=== PATIENT | female | born 1935 | race Caucasian/White ===

== ENCOUNTER 2019-09-10 12:01 | Emergency (ER) | payer MEDICARE ==
[2019-09-10] MEDS ORDERED: SODIUM CHLORIDE 0.9% 1,000 ML IV STA (12:55)
[2019-09-10] MEDS ORDERED: ONDANSETRON 4 MG/2 ML VIAL IVP STA ×2 (12:55→15:00)
[2019-09-10 13:29] LABS: Basophils # (A) 0.1 k/uL (0-0.2); Basophils % (A) 1 %; Eosinophils # (A) 0.2 k/uL (0-0.7); Eosinophils % (A) 2 %; HCT 42.4 % (34.0-46.0); HGB 14.3 gm/dL (11.4-16.0); Lymphocytes # (A) 0.7 k/uL (1.0-4.8); Lymphocytes % (A) 9 %; MCH 30.4 pg (25.0-35.0); MCHC 33.6 g/dL (31.0-37.0); MCV 90.2 fL (80.0-100.0); Mean Platelet Volume 6.7; Monocytes # (A) 0.5 k/uL (0-1.0); Monocytes % (A) 6 %; Neutrophils # (A) 5.8 k/uL (1.3-7.7); Neutrophils % (A) 80 %; Platelet Count 369 k/uL (150-450); RDW 13.4 % (11.5-15.5); WBC 7.3 k/uL (3.8-10.6)
--- NOTE | 2019-09-10 13:30 | ED ---
Nausea/Vomiting/Diarrhea HPI - General Chief complaint: Nausea/Vomiting/Diarrhea Stated complaint: diarrhea, nausea Time Seen by Provider: 09/10/19 12:22 Source: patient Mode of arrival: wheelchair Limitations: no limitations - History of Present Illness Initial comments: Patient is an 84-year-old female presenting to the emergency department complaints of nausea and vomiting 4 days. Patient's daughter and is here with her now. Patient's daughter states that patient has been unable to take her regular daily medications secondary to the nausea and vomiting for at least one week. Patient is on anxiety and depression medications. Patient has recently been treated for trigeminal neuralgia as well as a possible tooth infection. The patient was placed on penicillin for the tooth infection. 3 days ago patient went to [facility] for same complaint and was given fluids and Zofran and did report improvement her symptoms however the nausea returned. It was found that then that patient did have a UTI so they stopped the penicillin and started Bactrim. Patient is now complaining of diarrhea. Patient does have [place] as at home that she takes occasionally for back pain. Patient denies any pain anywhere. Patient denies fever, chills however has been having night sweats. Patient denies any belly pain or urinary complaints. There are no other complaints at this time. Upon arrival to the ER, vital signs are stable. - Related Data Home Medications Medication Instructions Recorded Confirmed Aspirin EC [Ecotrin Low Dose] 81 mg PO DAILY 06/29/14 07/03/14 Calcium Citrate/Vitamin D3 2 tab PO DAILY 06/29/14 07/03/14 [Calcium Citrate - Vit D3 Tab] Donepezil [Aricept] 5 mg PO HS 06/29/14 07/03/14 Multivitamins, Thera [Multivitamin] 1 each PO DAILY 06/29/14 07/03/14 Omeprazole [PriLOSEC] 20 mg PO BID 06/29/14 07/03/14 Oxybutynin Chloride [Ditropan XL] 5 mg PO DAILY 06/29/14 07/03/14 Simvastatin [Zocor] 20 mg PO HS 06/29/14 07/03/14 Venlafaxine HCl ER [Effexor Xr] 75 mg PO DAILY 06/29/14 07/03/14 clonazePAM [KlonoPIN] 1 mg PO DAILY 06/29/14 07/03/14 Previous Rx's Medication Instructions Recorded Cephalexin [Keflex] 500 mg PO BID 7 Days #14 cap 09/10/19 Ondansetron Odt [Zofran Odt] 4 mg PO Q8HR PRN #10 tab 09/10/19 Allergies Allergy/AdvReac Type Severity Reaction Status Date / Time No Known Allergies Allergy Verified 09/10/19 12:20 Review of Systems ROS Statement: Those systems with pertinent positive or pertinent negative responses have been documented in the HPI. ROS Other: All systems not noted in ROS Statement are negative. Past Medical History Past Medical History: GERD/Reflux, Hyperlipidemia, Osteoarthritis (OA) Additional Past Medical History / Comment(s): HX OF IBS, SYNCOPE, OVER ACTIVE BLADDER, CHRONIC BACK PAIN, trigeminal neuralgia History of Any Multi-Drug Resistant Organisms: None Reported Past Surgical History: Back Surgery, Cholecystectomy, Hysterectomy, Pacemaker Additional Past Surgical History / Comment(s): CERVICAL DISC SURGERY, RT ELBOW CARPAL RELEASE. Past Anesthesia/Blood Transfusion Reactions: Previous Problems w/ Anesthesia Additional Past Anesthesia/Blood Transfusion Reaction / Comment(s): STATES BLOODPRESSURE DROPS Type of Cardiac Device: Permanent Pacemaker Device Placement Date:: [employer] 2005 Past Psychological History: Anxiety, Depression Smoking Status: Never smoker Past Alcohol Use History: Occasional Past Drug Use History: None Reported - Past Family History Daughter(s) Family Medical History: Cancer Additional Family Medical History / Comment(s): THYROID CANCER General Exam - General Exam Comments Initial Comments: GENERAL: Well-appearing, well-nourished and in no acute distress, although appears uncomfortable from the nausea. HEAD: Atraumatic, normocephalic. EYES: Pupils equal round and reactive to light, extraocular movements intact, sclera anicteric, conjunctiva are normal. ENT: TMs normal, nares patent, oropharynx clear without exudates. Moist mucous membranes. NECK: Normal range of motion, supple without lymphadenopathy or JVD. LUNGS: Breath sounds clear to auscultation bilaterally and equal. No wheezes rales or rhonchi. HEART: Regular rate and rhythm without murmurs, rubs or gallops. ABDOMEN: Soft, nontender, normoactive bowel sounds. No guarding, no rebound. No masses appreciated. EXTREMITIES: Normal range of motion, no pitting or edema. No clubbing or cyanosis. NEUROLOGICAL: Cranial nerves II through XII grossly intact. Normal speech, normal gait. PSYCH: Normal mood, normal affect. SKIN: Warm, Dry, normal turgor, no rashes or lesions noted. Limitations: no limitations Course Vital Signs 09/10/19 09/10/19 09/10/19 12:16 15:11 15:33 Temperature 98 F 97.9 F Pulse Rate 67 76 74 Respiratory 16 16 18 Rate Blood Pressure 125/76 131/74 148/86 O2 Sat by Pulse 97 99 95 Oximetry Medical Decision Making - Medical Decision Making Patient is an 84-year-old female presenting with nausea and vomiting 4 days. Patient is also currently being treated for a UTI over she's been unable to take her antibiotics secondary to the nausea. Patient has also been unable to take her at home medications for approximately one week that does include anxiety and depression medications. Patient's exam is unremarkable today. Lab work shows no acute processes. UA shows continue patient off her UTI. Urine will be cultured. Patient was given fluids and antinausea medication and reports improvement in her symptoms. Patient will be switched to Keflex for her UTI and was given 1 g Rocephin through her IV before discharge. Patient was also given Zofran for her nausea and urged to start eating small amounts of food and increase her fluid intake. Patient and family is agreement with this plan of care. Patient is stable for discharge at this time. Return parameters were discussed with the patient and her family and they verbalized understanding. Case discussed with Dr. Evans. - Lab Data Result diagrams: 09/10/19 13:09/10/19 13:07 Lab Results 09/10/19 09/10/19 09/10/19 Range/Units 13:07 13:07 14:40 WBC 7.3 (3.8-10.6) k/uL RBC 4.70 (3.80-5.40) m/uL Hgb 14.3 (11.4-16.0) gm/dL Hct 42.4 (34.0-46.0) % MCV 90.2 (80.0-100.0) fL MCH 30.4 (25.0-35.0) pg MCHC 33.6 (31.0-37.0) g/dL RDW 13.4 (11.5-15.5) % Plt Count 369 (150-450) k/uL Neutrophils % 80 % Lymphocytes % 9 % Monocytes % 6 % Eosinophils % 2 % Basophils % 1 % Neutrophils # 5.8 (1.3-7.7) k/uL Lymphocytes # 0.7 L (1.0-4.8) k/uL Monocytes # 0.5 (0-1.0) k/uL Eosinophils # 0.2 (0-0.7) k/uL Basophils # 0.1 (0-0.2) k/uL Sodium 140 (137-145) mmol/L Potassium 4.2 (3.5-5.1) mmol/L Chloride 104 (98-107) mmol/L Carbon Dioxide 27 (22-30) mmol/L Anion Gap 9 mmol/L BUN 10 (7-17) mg/dL Creatinine 0.88 (0.52-1.04) mg/dL Est GFR (CKD-EPI)AfAm 71 (>60 ml/min/1.73 sqM) Est GFR (CKD-EPI)NonAf 61 (>60 ml/min/1.73 sqM) Glucose 118 H (74-99) mg/dL Calcium 9.6 (8.4-10.2) mg/dL Total Bilirubin 0.4 (0.2-1.3) mg/dL AST 28 (14-36) U/L ALT 25 (9-52) U/L Alkaline Phosphatase 119 (38-126) U/L Total Protein 7.3 (6.3-8.2) g/dL Albumin 4.1 (3.5-5.0) g/dL Urine Color Yellow Urine Appearance Clear (Clear) Urine pH 7.5 (5.0-8.0) Ur Specific Watson 1.008 (1.001-1.035) Urine Protein Negative (Negative) Urine Glucose (UA) Negative (Negative) Urine Ketones 1+ H (Negative) Urine Blood Negative (Negative) Urine Nitrite Negative (Negative) Urine Bilirubin Negative (Negative) Urine Urobilinogen <2.0 (<2.0) mg/dL Ur Leukocyte Esterase Large H (Negative) Urine RBC 4 (0-5) /hpf Urine WBC 66 H (0-5) /hpf Ur Squamous Epith Cells 1 (0-4) /hpf Disposition Clinical Impression: Nausea vomiting and diarrhea, UTI (urinary tract infection) Disposition: HOME SELF-CARE Condition: Stable Instructions (If sedation given, give patient instructions): Urinary Tract Infection in Older Adults (ED) Additional Instructions: Please return to the Emergency Department if symptoms worsen or any other concerns. May take the Zofran as needed for nausea. Take antibiotic as prescribed. Follow-up with PCP in 1- 3 days. Prescriptions: Cephalexin [Keflex] 500 mg PO BID 7 Days #14 cap Ondansetron Odt [Zofran Odt] 4 mg PO Q8HR PRN #10 tab PRN Reason: Nausea Is patient prescribed a controlled substance at d/c from ED?: No Referrals: Daniel Nicole MD [Primary Care Provider] - 1-2 days
[2019-09-10 13:48] LABS: Albumin 4.1 g/dL (3.5-5.0); Calcium 9.6 mg/dL (8.4-10.2); Potassium 4.2 mmol/L (3.5-5.1); Total Bilirubin 0.4 mg/dL (0.2-1.3); Total Protein 7.3 g/dL (6.3-8.2)
[2019-09-10 15:03] LABS: Appearance,Urine Clear (Clear); Bilirubin,Urine Negative (Negative); Blood,Urine Negative (Negative); Color,Urine Yellow; Glucose,Urine (UA) Negative (Negative); Ketones,Urine 1+ (Negative); Leukocyte Esterase,Urine Large (Negative); Nitrite,Urine Negative (Negative); PH, Urine 7.5 (5.0-8.0); Protein,Urine Negative (Negative); RBC,Urine 4 /hpf (0-5); Specific Gravity,Urine 1.008 (1.001-1.035); Squamous Epithelial Cell,Urine 1 /hpf (0-4); Urobilinogen,Urine <2.0 mg/dL (<2.0)
[2019-09-10] MEDS ORDERED: cefTRIAXone IN SWFI 1,000 MG/10 ML SYRINGE IVP STA (15:33)
[2019-09-10 15:35] VITALS: BP 148/86; PULSE 74; RESP 18; TEMP 97.9
[2019-09-10] MEDS ORDERED: ONDANSETRON 4 MG ODT STARTER PACK 2 TAB BTL PO STA (15:36)
== END 2019-09-10 16:16 | disposition home or self-care (01) ==
LOC: EC 12:01
DX: N39.0 Urinary tract infection, site not specified (principal); R19.7 Diarrhea, unspecified; F41.9 Anxiety disorder, unspecified; F32.9 Major depressive disorder, single episode, unspecified; K21.9 Gastro-esophageal reflux disease without esophagitis; K58.0 Irritable bowel syndrome with diarrhea; E78.5 Hyperlipidemia, unspecified; M19.90 Unspecified osteoarthritis, unspecified site; G89.29 Other chronic pain; M54.9 Dorsalgia, unspecified; N32.81 Overactive bladder; G50.0 Trigeminal neuralgia; Z79.899 Other long term (current) drug therapy; Z79.82 Long term (current) use of aspirin; Z98.890 Other specified postprocedural states
CPT/HCPCS: 36415; 80053; 85025; 81001; 87086; 99284; 96374; 96375 ×2; 96361 ×2; J2405; J0696; S0119

== ENCOUNTER 2019-09-16 18:46 | Observation (INO) | payer MEDICARE ==
[2019-09-16] MEDS ORDERED: SODIUM CHLORIDE 0.9% 1,000 ML IV STA (18:51)
--- NOTE | 2019-09-16 19:30 | ED ---
General Adult HPI - General Chief complaint: Syncope Stated complaint: Syncope Time Seen by Provider: 09/16/19 18:51 Source: patient, EMS Mode of arrival: EMS Limitations: no limitations - History of Present Illness Initial comments: Dictation was produced using [employer] dictation software. please excuse any grammatical, word or spelling errors. Chief Complaint: 84-year-old female past medical history of pacemaker and 61 presents with syncope. History of Present Illness: 84-year-old female she initially presented to [facility] emergency department for syncope. Patient was escorted to the bathroom at an adult foster home where she lives. She was seen passing out multiple times on the toilet. Patient was brought to [place] emergency department where she was evaluated. She had a negative computed tomography scan of the head and basic blood work. Patient had multiple episodes of syncope one emergency department. According to Dr. barron from [facility] there is concern that possibly her pacemaker wasn't functioning. Patient reports that her pacemaker was placed because she would have multiple episodes of syncope especially during bowel movements. Patient states at rest she feels well. Patient has been having infrequent bowel movements. She is passing gas. She denies any abdominal pain. She was sent to our facility because her curtain stitcher's is in our area. The ROS documented in this emergency department record has been reviewed and confirmed by me. Those systems with pertinent positive or negative responses have been documented in the HPI. All other systems are other negative and/or noncontributory. PHYSICAL EXAM: General Impression: Alert and oriented x3, not in acute distress HEENT: Normocephalic atraumatic, extra-ocular movements intact, pupils equal and reactive to light bilaterally, mucous membranes moist, no carotid bruit. Cardiovascular: Heart regular rate and rhythm, S1&S2 audible, no murmurs, rubs or gallops Chest: Lungs clear to auscultation bilaterally, no rhonchi, no wheeze, no rales Abdomen: Bowel sounds present, abdomen soft, non-tender, non-distended, no organomegaly Musculoskeletal: Pulses present and equal in all extremities, no peripheral edema Motor: no focal deficits noted Neurological: CN II-XII grossly intact, no focal motor or sensory deficits noted Skin: Intact with no visualized rashes Psych: Normal affect and mood ED course: 84-year-old female sent over from [facility] for syncope and possible pacer malfunction.. Vital signs upon arrival are within acceptable limits. Patient is well-appearing at this time. At rest patient has no specific complaints. Chart review was performed. Patient had x-ray showing moderate stool burden. No evidence of bowel obstruction. Computed tomography scan of the head was obtained showing no acute processes. CBC was unremarkable. Metabolic panel is unremarkable. EKG was obtained showing no acute processes. Patient advised is interrogated pending pacer report. Patient observed in emergency Department with no syncopal events. We'll have patient admitted observation. Discussed patient case just go from Dr. Vu's group willing to accept patients care. Cardiology will be placed on consultation. EKG interpretation: Ventricular rate 52, sinus bradycardia, MT interval 180, Q is 82, QTC 399. No MT prolongation, no QTC prolongation, no ST or T-wave changes noted. Overall, this EKG is unremarkable - Related Data Home Medications Medication Instructions Recorded Confirmed Aspirin EC [Ecotrin Low Dose] 81 mg PO DAILY 06/29/14 07/03/14 Calcium Citrate/Vitamin D3 2 tab PO DAILY 06/29/14 07/03/14 [Calcium Citrate - Vit D3 Tab] Donepezil [Aricept] 5 mg PO HS 06/29/14 07/03/14 Multivitamins, Thera [Multivitamin] 1 each PO DAILY 06/29/14 07/03/14 Omeprazole [PriLOSEC] 20 mg PO BID 06/29/14 07/03/14 Oxybutynin Chloride [Ditropan XL] 5 mg PO DAILY 06/29/14 07/03/14 Simvastatin [Zocor] 20 mg PO HS 06/29/14 07/03/14 Venlafaxine HCl ER [Effexor Xr] 75 mg PO DAILY 06/29/14 07/03/14 clonazePAM [KlonoPIN] 1 mg PO DAILY 06/29/14 07/03/14 Previous Rx's Medication Instructions Recorded Cephalexin [Keflex] 500 mg PO BID 7 Days #14 cap 09/10/19 Ondansetron Odt [Zofran Odt] 4 mg PO Q8HR PRN #10 tab 09/10/19 Allergies Allergy/AdvReac Type Severity Reaction Status Date / Time No Known Allergies Allergy Verified 09/16/19 18:55 Review of Systems ROS Statement: Those systems with pertinent positive or pertinent negative responses have been documented in the HPI. ROS Other: All systems not noted in ROS Statement are negative. Past Medical History Past Medical History: GERD/Reflux, Hyperlipidemia, Osteoarthritis (OA) Additional Past Medical History / Comment(s): HX OF IBS, SYNCOPE, OVER ACTIVE BLADDER, CHRONIC BACK PAIN, trigeminal neuralgia History of Any Multi-Drug Resistant Organisms: None Reported Past Surgical History: Cholecystectomy, Hysterectomy, Pacemaker Additional Past Surgical History / Comment(s): CERVICAL DISC SURGERY, RT ELBOW CARPAL RELEASE. Past Anesthesia/Blood Transfusion Reactions: Previous Problems w/ Anesthesia Additional Past Anesthesia/Blood Transfusion Reaction / Comment(s): STATES BLOODPRESSURE DROPS Type of Cardiac Device: Permanent Pacemaker Device Placement Date:: [employer] 2005 Past Psychological History: Anxiety, Depression Smoking Status: Never smoker Past Alcohol Use History: Occasional Past Drug Use History: None Reported - Past Family History Daughter(s) Family Medical History: Cancer Additional Family Medical History / Comment(s): THYROID CANCER General Exam Limitations: no limitations Course Vital Signs 09/16/19 09/16/19 18:55 19:08 Temperature 98.2 F Pulse Rate 60 Pulse Rate [ 53 L Contestant Coordinator ] Respiratory 18 Rate Blood Pressure 109/80 O2 Sat by Pulse 98 Oximetry Disposition Clinical Impression: Syncope Disposition: ADMITTED IP TO THIS HOSP Condition: Fair Referrals: Daniel Nicole MD [Primary Care Provider] - 1-2 days Decision Time: 20:21
[2019-09-16] MEDS ORDERED: ONDANSETRON 4 MG/2 ML VIAL IVP PRN (20:18)
[2019-09-16] MEDS ORDERED: NALOXONE 0.4 MG/ML 1 ML VIAL IV PRN (20:18)
[2019-09-16] MEDS ORDERED: HYDROcodone/APAP 5-325MG 1 EACH TAB PO PRN (22:35)
[2019-09-16] MEDS ORDERED: traMADol 50 MG TAB PO PRN (22:35)
[2019-09-16] MEDS: ATORVASTATIN 10 MG TAB PO SCH (23:04)
[2019-09-16] MEDS: SODIUM CHLORIDE 0.9% 1,000 ML IV SCH (23:04)
[2019-09-17] MEDS ORDERED: ACETAMINOPHEN TAB 500 MG TAB PO PRN (00:34)
[2019-09-17] MEDS ORDERED: TEMAZEPAM 15 MG CAP PO PRN (00:34)
[2019-09-17] MEDS ORDERED: ALPRAZolam 0.25 MG TAB PO PRN (00:34)
[2019-09-17] MEDS: carBAMazepine 100 MG TAB.ER.12H PO SCH ×2 (00:41→09:21)
[2019-09-17] MEDS: clonazePAM 0.5 MG TAB PO SCH ×3 (00:55→20:03)
[2019-09-17] MEDS: CEPHALEXIN 500 MG CAP PO SCH ×3 (00:55→20:03)
--- NOTE | 2019-09-17 04:13 | HP ---
HISTORY AND PHYSICAL . DATE OF SERVICE: 09/16/2019 CHIEF COMPLAINT: Multiple symptomatology including syncope, pacemaker dysfunction as well as dizziness, abdominal pain, trigeminal neuralgia. HISTORY OF PRESENT ILLNESS: This 84-year-old woman with a past medical history of multiple medical problems including GERD, hyperlipidemia, history of DJD, history of hysterectomy, history of pacemaker, history of cervical disc surgery, history of permanent pacemaker which was inserted about 4 years ago, being followed by Dr. Daniel Nicole in the outpatient was having difficulties with trigeminal neuralgia for the last several weeks. The patient apparently was evaluated by Dr. Ott for severe left-sided trigeminal neuralgia and Tegretol was initiated but apparently patient not able to tolerate the medications and the patient has some abdominal symptoms and weakness and dizziness subsequently and dose has been apparently being planned to be reduced, but the patient is unable to see the neurologist and in between, the patient diminished eating and patient became somewhat dizzy, dehydrated and the patient ended up in the ER today. When the patient was going to the bathroom, patient felt dizzy and passed out and the had to hold her. The patient taken to [facility] and subsequently was referred to [facility] and was admitted for further evaluation and treatment. In between, the patient was also evaluated by a dental surgeon up [place] and the possibility of tooth abnormalities also considered but however because of concerns of pacemaker dysfunction, the patient referred to [facility] and admitted for further evaluation and treatment. Pacemaker interrogation apparent showed strips of ventricular tachycardia. There is no history of fever, rigors. No history of any chest pain, palpitations, headache, any seizures at this time. PAST MEDICAL HISTORY: Past medical history of GERD and hypertension, DJD, history of irritable bowel syndrome, anxiety, depression, a pacemaker. MEDICATIONS: Home medications are: 1. [place] 5 mg q.6h p.r.n. 2. Timoptic 1 drop both eyes b.i.d. 3. Zocor 20 mg q.h.s. 4. Ditropan XL 5 mg p.o. daily. 5. Zofran 4 mg q.8 p.r.n. 6. Keflex 500 mg p.o. b.i.d. 7. Tegretol XR 200 mg p.o. b.i.d. 8. Effexor XR 75 mg p.o. daily. 9. Prilosec 20 mg. 10.Multivitamins one p.o. daily. 11.Vitamin D3 1 tablet p.o. b.i.d. 12.Ultram 50 mg p.o. q.4 p.r.n. 13.Klonopin 0.5 mg p.o. b.i.d. 14.Ecotrin 81 mg p.o. daily. ALLERGIES: None. FAMILY HISTORY: History of thyroid cancer in the family. SOCIAL HISTORY: No history of smoking. No history of alcohol intake. REVIEW OF SYSTEMS: ENT: No diminished vision. No diminished hearing. CARDIOVASCULAR: No angina or palpitations. Otherwise, cardiovascular as mentioned earlier. RESPIRATION as mentioned earlier. GI no nausea or vomiting. no dysuria or hematuria. NERVOUS SYSTEM: No numbness or weakness. ALLERGY: No asthma or hayfever. MUSCULOSKELETAL as mentioned earlier. HEMATOLOGY/ONCOLOGY: No history of anemia. ENDOCRINE: No history of diabetes or hypothyroidism. CONSTITUTIONAL: As mentioned earlier. DERMATOLOGY: Negative. RHEUMATOLOGY negative. PSYCHIATRY as mentioned earlier. PHYSICAL EXAMINATION: Alert and oriented times three. Pulse 67. Blood pressure 133/81, respirations 16, temperature 98.1, pulse ox 97% on room air. HEENT is conjunctivae normal. Oral mucosa moist. NECK is no jugular venous distention. No carotid bruit. No lymph node enlargement. CARDIOVASCULAR: S1, S2 muffled. RESPIRATION: Breath sounds diminished in the bases. A few scattered rhonchi and crackles. ABDOMEN: Soft, nontender. No mass palpable. LEGS: No edema and no swelling. NERVOUS SYSTEM: Higher functions as mentioned earlier. Moves all 4 limbs. No focal motor or sensory deficits. LYMPHATICS: No lymph nodes palpable in the neck, axillae or groin. SKIN: No ulcer, rash or bleeding. JOINTS: No active deforming arthropathy. LABS: At this time pending at this time. ASSESSMENT: 1. Syncope for evaluation possible cardiac arrhythmia ventricular tachycardia. 2. Weakness and dizziness possible dehydration with diminished p.o. intake. 3. Left-sided trigeminal neuralgia. 4. Possible acute gastritis. 5. History of gastroesophageal reflux disease. 6. Hyperlipidemia. 7. History of degenerative joint disease. 8. History of irritable bowel syndrome. 9. Overactive bladder. 10.History of peripheral neuropathy. 11.Left bursitis. 12.History of cholecystectomy. 13.Hysterectomy. 14.History of cervical disc surgery. 15.History of anxiety, depression. 16.FULL CODE. RECOMMENDATIONS AND DISCUSSION: In this 84-year-old woman who presented with multiple complex medical issues, we will monitor the patient closely, continue the current medications, management and symptomatic treatment. I will provide symptomatic treatment with low-dose pain medications. Otherwise, I would also recommend Cardiology consultation and monitor lytes closely. Baseline labs. Resume the home medications. I would also recommend evaluation by a neurologist available for the followup of the trigeminal neuralgia. Otherwise overall prognosis guarded because of multiple complex medical issues, as detailed above. Discussed with the patient who understands and agrees. Further recommendations to follow. A copy of this dictation being forwarded to Dr. Daniel Nicole who is the primary physician. See orders for details. MMODL / IJN: [id number] / MTDD
[2019-09-17] MEDS ORDERED: PANTOPRAZOLE 40 MG TABLET PO SCH (07:30)
[2019-09-17] MEDS ORDERED: VITAMIN D3 PO SCH (09:00)
[2019-09-17] MEDS ORDERED: CALCIUM CITRATE PO SCH (09:00)
[2019-09-17] MEDS: HEPARIN SODIUM,PORCINE 5,000 UNIT/ML 1 ML VIAL SQ SCH ×2 (09:17→20:03)
[2019-09-17] MEDS: PANTOPRAZOLE 40 MG/10 ML VIAL IVP SCH ×2 (09:17→20:03)
[2019-09-17] MEDS: ASPIRIN 81 MG PO SCH (09:17)
[2019-09-17] MEDS: MULTIVITAMINS, THERA 1 EACH TAB PO SCH (09:17)
[2019-09-17] MEDS: TIMOLOL 0.5% OPHTH DROPS 5 ML BTL BOTH EYES SCH (09:17)
[2019-09-17] MEDS: VENLAFAXINE HCL ER 75 MG CAP PO SCH (09:17)
[2019-09-17] MEDS: OXYBUTYNIN XL 5 MG TAB.ER.24 PO SCH (09:18)
--- NOTE | 2019-09-17 11:31 | CONS ---
CONSULTATION Mrs. Polanco is an 84-year-old female with known history of permanent pacemaker implantation, who presented with symptoms of syncope. According to her, she was in the bathroom when she felt quite dizzy. Her got her. There was a question of a total syncope, although the duration is not clear. According to the notes from [facility], she had an episode of dizziness while on the commode. She has a pacemaker and has been followed by Dr. Osborn, but she according to her has no other cardiac history. She had no significant palpitation yesterday. No chest discomfort. No change in her breathing. She uses a walker. She has no PND, orthopnea, or peripheral edema. She has no prior history of documented ischemic heart disease. She had recent symptoms of trigeminal neuralgia and has been seen by Dr. Ott and had some reaction to the medication she was on that has been on weaned off. She was also found to have what appears to be ruptured her root in her sinuses and was evaluated by her dentist. Her coronary risk factors are remarkable for hyperlipidemia. She is a nondiabetic and nonsmoker. MEDICATIONS: Her medications include aspirin, Klonopin, Prilosec, Effexor, Tegretol, Ditropan, simvastatin, Timoptic and [place] on a p.r.n. basis. REVIEW OF SYSTEMS: Respiratory system: She has some dyspnea on exertion. No recent wheezing or cough. GI system: No recent GI bleed. No peptic ulcer disease. system: No dysuria or hematuria. Nervous system: She has a history of trigeminal neuralgia. PHYSICAL EXAMINATION: She is an 84-year-old female, alert, oriented, no apparent distress. Blood pressure running in the 120s with a heart rate in the 60s to 70s. On the monitor, there is no evidence of pacemaker malfunction. HEAD: Normocephalic. Eyes sclerae anicteric. NECK: Good upstroke. No bruit. No jugular venous distention. LUNGS: Clear to auscultation. HEART: Regular rate and rhythm S1, S2. No S3 with systolic murmur, ejection type heard at the base. No diastolic murmur. No rub. ABDOMEN: Soft, nontender. Positive bowel sounds. No organomegaly. EXTREMITIES: No edema. Intact distal pulses. EKG revealed a sinus mechanism with a left axis deviation, connects with inferior myocardial infarction with poor R wave progression. LAB DATA: From [place] revealed a hemoglobin of 13.5, BUN and creatinine of 12 and 0.6. Potassium 3.6. Troponin less than 0.012. NT proBNP of 98. There was a question of ventricular tachycardia on the interrogation of the device, although I do not have records of that. IMPRESSION: 1. Symptoms of syncope could be related to vasovagal reaction related to the bowel movement. 2. Status post permanent pacemaker implantation with no clear evidence of pacemaker malfunction. There was reported episode of bradycardia and received atropine, but it is unclear if it was a sinus bradycardia or pacemaker malfunction. 3. History of hyperlipidemia. 4. Trigeminal neuralgia. RECOMMENDATION: From the cardiac standpoint, I will obtain echocardiogram with Doppler. I will have a full interrogation of her device and depending on those findings, further recommendation will be made. Thank you for this consult. We will follow with you. DAMIEN / TRACIN: [id number] /
[2019-09-17 12:53] LABS: Basophils % (A) 1 %; Eosinophils # (A) 0.1 k/uL (0-0.7); Eosinophils % (A) 2 %; HCT 36.3 % (34.0-46.0); HGB 12.2 gm/dL (11.4-16.0); Lymphocytes # (A) 1.1 k/uL (1.0-4.8); Lymphocytes % (A) 13 %; MCH 30.6 pg (25.0-35.0); MCHC 33.7 g/dL (31.0-37.0); Mean Platelet Volume 6.9; Monocytes # (A) 0.4 k/uL (0-1.0); Monocytes % (A) 5 %; Neutrophils # (A) 6.8 k/uL (1.3-7.7); Neutrophils % (A) 79 %; Platelet Count 263 k/uL (150-450); RBC 3.99 m/uL (3.80-5.40); RDW 13.7 % (11.5-15.5); WBC 8.6 k/uL (3.8-10.6)
[2019-09-17 13:02] LABS: ALT 19 U/L (9-52); AST 16 U/L (14-36); African American GFR (CKD) >90 (>60 ml/min/1.73 sqM); Albumin 3.2 g/dL (3.5-5.0); Alkaline Phosphatase 81 U/L (38-126); Anion Gap 7 mmol/L; Blood Urea Nitrogen 13 mg/dL (7-17); Calcium 8.8 mg/dL (8.4-10.2); Carbon Dioxide 24 mmol/L (22-30); Chloride 107 mmol/L (98-107); Glucose 119 mg/dL (74-99); Non-African American GFR(CKD) 81 (>60 ml/min/1.73 sqM); Potassium 3.6 mmol/L (3.5-5.1); Sodium 138 mmol/L (137-145); Total Bilirubin 0.4 mg/dL (0.2-1.3); Total Protein 5.8 g/dL (6.3-8.2)
--- NOTE | 2019-09-17 14:34 | PN ---
PROGRESS NOTE DATE OF SERVICE: 09/17/2019 This 84-year-old woman was admitted with multiple symptomatology including pacemaker dysfunction, dizziness, abdominal pain, trigeminal neuralgia, is being closely monitored at this time. The patient was started on Tegretol, which the patient unable to tolerate at this time. The patient has seen Dr. Ott the neurologist. Cardiology following the patient closely. PAST MEDICAL HISTORY: Reviewed. REVIEW OF SYSTEMS: Cardiovascular system as mentioned earlier. Gastrointestinal: As mentioned earlier. no dysuria or hematuria. CENTRAL NERVOUS SYSTEM: No numbness or weakness. CURRENT MEDICATIONS: Current medications are reviewed and include: 1. Tylenol 500 mg q.6h p.r.n. 2. [place] 5 mg p.o. b.i.d. p.r.n. 3. Aspirin 81 mg. 4. Lipitor. 5. Tegretol 200 mg b.i.d. 7. Heparin. 8. Narcan. 9. Zofran. 10.Ditropan. 11.Protonix. 12.Restoril. 13.Ultram. 14.Effexor. 15.Doses are reviewed. PHYSICAL EXAMINATION: The patient is alert and oriented x3. Pulse 79. Blood pressure 119/68, respiration 17, temperature 98.7, pulse ox 94% on room air. HEENT is conjunctivae normal. Oral mucosa moist. NECK is no jugular venous distention. CARDIOVASCULAR system: S1, S2 muffled. RESPIRATIONS: Breath sounds diminished in the bases. A few scattered rhonchi. ABDOMEN: Soft. NERVOUS SYSTEM: No focal deficits. LABS: At this time awaited. ASSESSMENT: 1. Syncope for evaluation, possible cardiac arrhythmia, rule out ventricular tachycardia or vasovagal. 2. Weakness and dizziness, possible dehydration with diminished p.o. intake. 3. Left-sided trigeminal neuralgia. 4. Possible acute gastritis. 5. History of gastroesophageal reflux disease. 6. Hyperlipidemia. 7. History of degenerative joint disease. 8. History of irritable bowel syndrome. 9. History of overactive bladder. 10.History of peripheral neuropathy. 11.History of left hip bursitis. 12.History of cholecystectomy. 13.History of hysterectomy. 14.History of cervical disc surgery. 15.History of anxiety, depression. 16.FULL CODE. RECOMMENDATIONS AND DISCUSSION: I recommend to continue current medications, management and symptomatic treatment. I would also recommend some stat labs also. Otherwise, closely follow with Cardiology. Neurology consultation has been sought and continue to monitor. Further recommendations to follow. See orders for details. Discussed with the patient and family. MMODL / IJN: [id number] / MANUELA
[2019-09-17] MEDS: ATORVASTATIN 10 MG TAB PO SCH (20:03)
[2019-09-17] MEDS: SODIUM CHLORIDE 0.9% 1,000 ML IV SCH (20:03)
[2019-09-18 04:36] LABS: Basophils % (A) 1 %; Eosinophils # (A) 0.2 k/uL (0-0.7); Eosinophils % (A) 3 %; HGB 11.8 gm/dL (11.4-16.0); Lymphocytes # (A) 1.3 k/uL (1.0-4.8); Lymphocytes % (A) 18 %; MCH 30.5 pg (25.0-35.0); MCHC 33.7 g/dL (31.0-37.0); MCV 90.3 fL (80.0-100.0); Mean Platelet Volume 6.7; Monocytes # (A) 0.5 k/uL (0-1.0); Monocytes % (A) 6 %; Neutrophils # (A) 5.4 k/uL (1.3-7.7); Neutrophils % (A) 72 %; Platelet Count 247 k/uL (150-450); RBC 3.88 m/uL (3.80-5.40); RDW 13.8 % (11.5-15.5); WBC 7.5 k/uL (3.8-10.6)
[2019-09-18 04:51] LABS: African American GFR (CKD) >90 (>60 ml/min/1.73 sqM); Anion Gap 6 mmol/L; Blood Urea Nitrogen 10 mg/dL (7-17); Calcium 8.8 mg/dL (8.4-10.2); Carbon Dioxide 23 mmol/L (22-30); Chloride 110 mmol/L (98-107); Glucose 105 mg/dL (74-99); Magnesium 1.8 mg/dL (1.6-2.3); Non-African American GFR(CKD) 88 (>60 ml/min/1.73 sqM); Potassium 3.5 mmol/L (3.5-5.1); Sodium 139 mmol/L (137-145)
[2019-09-18] MEDS: TIMOLOL 0.5% OPHTH DROPS 5 ML BTL BOTH EYES SCH (07:27)
[2019-09-18] MEDS: MULTIVITAMINS, THERA 1 EACH TAB PO SCH (07:27)
[2019-09-18] MEDS: ASPIRIN 81 MG PO SCH (07:27)
[2019-09-18] MEDS: clonazePAM 0.5 MG TAB PO SCH ×2 (07:27→20:21)
[2019-09-18] MEDS: HEPARIN SODIUM,PORCINE 5,000 UNIT/ML 1 ML VIAL SQ SCH ×2 (07:28→20:22)
[2019-09-18] MEDS: CEPHALEXIN 500 MG CAP PO SCH ×2 (07:28→20:21)
[2019-09-18] MEDS: OXYBUTYNIN XL 5 MG TAB.ER.24 PO SCH (07:28)
[2019-09-18] MEDS: VENLAFAXINE HCL ER 75 MG CAP PO SCH (07:28)
[2019-09-18] MEDS ORDERED: PANTOPRAZOLE 40 MG TABLET PO SCH (07:30)
--- NOTE | 2019-09-18 10:42 | ECHOF ---
Referral Reason:syncope MEASUREMENTS -------- HEIGHT: 152.4 cm WEIGHT: 77.1 kg BP: 172/95 RVIDd: 2.6 cm (< 3.3) IVSd: 1.2 cm (0.6 - 1.1) LVIDd: 4.1 cm (3.9 - 5.3) LVPWd: 1.2 cm (0.6 - 1.1) IVSs: 1.5 cm LVIDs: 2.9 cm LVPWs: 1.7 cm LA Diam: 3.3 cm (2.7 - 3.8) LAESV Index (A-L): 14.13 ml/m IVSd: 1.1 cm (0.6 - 1.1) Ao Diam: 3.4 cm (2.0 - 3.7) AV Cusp: 2.2 cm (1.5 - 2.6) MV EXCURSION: 14.273 mm (> 18.000) MV EF SLOPE: 93 mm/s (70 - 150) EPSS: 0.4 cm MV E Kenn: 0.63 m/s MV DecT: 242 ms MV A Kenn: 0.99 m/s MV E/A Ratio: 0.64 RAP: 5.00 mmHg RVSP: 25.88 mmHg FINDINGS -------- Sinus rhythm. This was a technically adequate study. The left ventricular size is normal. There is borderline concentric left ventricular hypertrophy. Overall left ventricular systolic function is normal with, an EF between 60 - 65 %. The right ventricle is normal in size. Normal LA size by volume 22+/-6 ml/m2. The right atrium is normal in size. Interatrial and interventricular septum intact. The aortic valve is trileaflet and appears structurally normal. Trace to mild aortic regurgitation. The mitral valve leaflets are mildly thickened. Mild mitral annular calcification present. Mild m itral regurgitation is present. Mild tricuspid regurgitation present. Right ventricular systolic pressure is normal at < 35 mmHg. Trace/mild (physiologic) pulmonic regurgitation. The aortic root size is normal. Normal inferior vena cava with normal inspiratory collapse consistent with estimated right atrial pre ssure of 5 mmHg. There is no pericardial effusion. CONCLUSIONS -------- 1. Sinus rhythm. 2. This was a technically adequate study. 3. The left ventricular size is normal. 4. There is borderline concentric left ventricular hypertrophy. 5. Overall left ventricular systolic function is normal with, an EF between 60 - 65 %. 6. The right ventricle is normal in size. 7. Normal LA size by volume 22+/-6 ml/m2. 8. The right atrium is normal in size. 9. Interatrial and interventricular septum intact. 10. The aortic valve is trileaflet and appears structurally normal. 11. Trace to mild aortic regurgitation. 12. The mitral valve leaflets are mildly thickened. 13. Mild mitral annular calcification present. 14. Mild mitral regurgitation is present. 15. Mild tricuspid regurgitation present. 16. Right ventricular systolic pressure is normal at < 35 mmHg. 17. Trace/mild (physiologic) pulmonic regurgitation. 18. The aortic root size is normal. 19. Normal inferior vena cava with normal inspiratory collapse consistent with estimated right atrial pressure of 5 mmHg. 20. There is no pericardial effusion. CUSTODIAL SUPERVISOR: Vandana Domingo RDCS
--- NOTE | 2019-09-18 10:50 | P.PN ---
Subjective This is a pleasant 84-year-old female past medical history significant for permanent pacemaker implantation. She follows in the office with Dr. Osborn. She underwent interrogation of her [employer] device yesterday revealing no significant tachycardia or bradycardia arrhythmias associated with her episodes of near syncope. The battery has approximately 5.5 years remaining. She has had no further symptoms of dizziness in the previous 24 hours. She states this morning she feels mildly nauseated. She denies chest pain, shortness of breath, dizziness or palpitations. Echocardiogram revealed preserved LV systolic function with ejection fraction 60-65%, mild MR and mild TR. Telemetry tracings reviewed, no evidence of bradycardia or pacemaker malfunction. Laboratory data reviewed, sodium 139, potassium 3.5, creatinine 0.54. Currently maintained on aspirin 81 mg daily, atorvastatin 10 mg daily. Orthostatic blood pressures reviewed, supine 106/67, sitting 128/74 standing 145/79. Heart rate 60-70 range. GENERAL: Well-appearing, well-nourished and in no acute distress. NECK: Supple without JVD or thyromegaly. LUNGS: Breath sounds clear to auscultation bilaterally. Respiration equal and unlabored. No wheezes, rales or rhonchi. HEART: Regular rate and rhythm without murmurs, rubs or gallops. S1 and S2 heard. EXTREMITIES: Normal range of motion, no edema. No clubbing or cyanosis. Peripheral pulses intact. ASSESSMENT Syncope, related to vasovagal reaction while having a bowel movement History of permanent pacemaker implantation with no evidence of pacemaker malfunction Dyslipidemia Trigeminal neuralgia PLAN No evidence of pacemaker malfunction or bradycardia. Likely was vasovagal reaction. Stable for discharge from a cardiac perspective. Follow up with Dr. Osborn in 2 weeks. Nurse Practitioner note has been reviewed, I agree with a documented findings and plan of care. Patient was seen and examined. Objective - Vital Signs Vital signs: Vital Signs Temp 98.2 F 09/18/19 07:10 Pulse 61 09/18/19 08:41 Resp 18 09/18/19 07:10 BP 106/67 09/18/19 08:41 Pulse Ox 93 L 09/18/19 08:41 Intake & Output 09/17/19 09/18/19 09/18/19 18:59 06:59 18:59 Intake Total 440 Balance 440 Intake: Oral 240 Other 200 Other: Voiding Method Bedside Commode Bedside Commode Bedside Commode # Voids 1 1 1 - Labs CBC & Chem 7: 09/18/19 04:14 09/18/19 04:17 Labs: Abnormal Lab Results - Last 24 Hours (Table) 09/17/19 09/18/19 Range/Units 12:31 04:17 Chloride 110 H (98-107) mmol/L Glucose 119 H 105 H (74-99) mg/dL Total Protein 5.8 L (6.3-8.2) g/dL Albumin 3.2 L (3.5-5.0) g/dL
--- NOTE | 2019-09-18 12:22 | P.CNNES ---
History of Present Illness Consult date: 09/18/19 Reason for Consult: Trigeminal Neuralgia Chief complaint: Syncope History of Present Illness: HISTORY OF PRESENT ILLNESS: Thank you for allowing me to evaluate Ms. Saida Polanco. Ms. Polanco is an 84 year-old woman with PMhx of GERD, hyperlipidemia, ARTHRITIS, IBS, syncope, overactive bladder, chronic back pain, trigeminal neuralgia, anxiety, depression, presenting to [facility] for an episode of syncope, consulting neurology for trigeminal neuralgia. Visual lives at adult foster home. While she was escorted to the bathroom, patient was seen passing out times the toilet. There is concern that the pacemaker is not functioning. patient states that she started having sharp, electricity-like pain in her L forehead about 2 months ago, sometimes triggered by touching her L forehead, her nose or eating/talking. Last episode this morning. During eval, we tried to elicit symptom but did not happen. Patient was seen by Dr. Ott who prescribed her carbamazepine, but she had side effects of vomiting and excessive sleeping that she was told to taper off her medication. She has not been able to make a follow up appt with Dr. Ott due to his busy schedule. PAST MEDICAL HISTORY: GERD, hyperlipidemia, ARTHRITIS, IBS, syncope, overactive bladder, chronic back pain, trigeminal neuralgia, anxiety, depression PAST SURGICAL HISTORY: Cholecystectomy, hysterectomy, pacemaker HOME MEDICATIONS: Multivitamins, oxybutynin, omeprazole, venlafaxine, simvastatin, calcium, aspirin, Keflex, Zofran, [place], carbamazepine 200 mg BID, tramadol, clonazepam ALLERGIES: NKDA SOCIAL HISTORY: Never smoker. Occasional alcohol use. FAMILY HISTORY: Daughter with thyroid cancer REVIEW OF SYSTEMS: The 14 systems are reviewed and no additional points are identified compared to the review of systems documented history and physical PHYSICAL EXAMINATION: VITAL SIGNS: T 98.2 HR 80 RR 18 BP 149/84 O2 sat 93% on RA GEN.: NAD, pleasant and cooperative HEENT: NCAT, sclera without icterus NECK: Supple, no carotid bruit SKIN AND EXTREMITIES: Warm to touch, no edema NEURO: MENTAL STATUS: Patient alert and oriented to self, place, time. Able to name the current president. Speech fluent, able to name and repeat, following all commands readily. No right and left disorientation, extinction to double simul taneous stimulation, finger agnosia, neglect. CRANIAL NERVES II THROUGH XII: II: Pupils are equal and reactive to light symmetrically. No afferent pupillary defect. Visual gaspar are intact. III, I V, : No ptosis. Extraocular movements full. No nystagmus. V: Facial sensation intact from V1-3. VII. No clear facial asymmetry. VIII: Hearing intact to finger rub bilaterally. IX, X: Symmetric palate elevation. XI: Shoulder shrug intact. XII: Tongue midline without fasciculation or atrophy. MOTOR: Normal bulk/tone. No pronator drift or tremor. Strength is 5/5 in b/l UE. LLE with limitation due to pain (patient with L hip bursitis) SENSORY: Intact to light touch in all 4 extremities. REFLEXES: 2+ throughout. Toes are downgoing. COORDINATION: Finger to nose and heel to padilla intact. No dysmetria. DIAGNOSTIC TESTING: LABORATORY: WBC 7.5 hemoglobin 11.8 platelet 247 sodium 139 potassium 2.9 chloride 110 bicarb 23 BUN 10 creatinine 0.54 glucose 105 AST 16 ALT 19 IMAGING: No head imaging available at this time ASSESSMENT: 84 year-old woman with PMhx of GERD, hyperlipidemia, ARTHRITIS, IBS, syncope, overactive bladder, chronic back pain, trigeminal neuralgia, anxiety, depression, presenting to [facility] for an episode of syncope, consulting neurology for trigeminal neuralgia. Patient reports that she has too many episodes on her bad days, but it has improved slightly. Intolerable side effects from carbamazepine. I would recommend starting oxcarbazepine as carbamazepine and oxcarbazepine have been shown to be most effective in treating trigeminal neuralgia and oxcarbazepine causes less side effects. Other medications such as baclofen and lamotrigine have been studied. If patient has side effects with oxcarbazepine as well, can try baclofen. RECOMMENDATIONS: 1. Will start Oxcarbazepine 150mg BID (please inform that oxcarbazepine and carbamazepine are different medications, with oxcarbazepine having less side effects) 2. If patient has symptoms, discontinue oxcarbazepine and can start baclofen 5mg TID. 3. Patient needs to follow up with a neurologist. Patient would prefer Dr. Dodson as Dr. Ott has been busy, but please make appointment with whoever has a sooner availability. 4. Neurology will sign off at this time. Please feel free to contact Neurology again if with additional questions or concerns. Past Medical History Past Medical History: GERD/Reflux, Hyperlipidemia, Osteoarthritis (OA) Additional Past Medical History / Comment(s): HX OF IBS, SYNCOPE, OVER ACTIVE BLADDER, CHRONIC BACK PAIN, trigeminal neuralgia, neuropathy, bursitis in hip left. History of Any Multi-Drug Resistant Organisms: None Reported Past Surgical History: Cholecystectomy, Hysterectomy, Pacemaker Additional Past Surgical History / Comment(s): CERVICAL DISC SURGERY, RT ELBOW CARPAL RELEASE. Past Anesthesia/Blood Transfusion Reactions: Previous Problems w/ Anesthesia Additional Past Anesthesia/Blood Transfusion Reaction / Comment(s): STATES BLOODPRESSURE DROPS Type of Cardiac Device: Permanent Pacemaker Device Placement Date:: Neogrowth 2005 Past Psychological History: Anxiety, Depression Smoking Status: Never smoker Past Alcohol Use History: Occasional Past Drug Use History: None Reported - Past Family History Daughter(s) Family Medical History: Cancer Additional Family Medical History / Comment(s): THYROID CANCER Medications and Allergies Home Medications Medication Instructions Recorded Confirmed Type Aspirin EC [Ecotrin Low Dose] 81 mg PO DAILY 06/29/14 09/16/19 History Calcium Citrate/Vitamin D3 1 tab PO BID 06/29/14 09/16/19 History [Calcium Citrate - Vit D3 Tab] Multivitamins, Thera [Multivitamin] 1 tab PO DAILY 06/29/14 09/16/19 History Omeprazole [PriLOSEC] 20 mg PO DAILY 06/29/14 09/16/19 History Oxybutynin Chloride [Ditropan XL] 5 mg PO DAILY 06/29/14 09/16/19 History Simvastatin [Zocor] 20 mg PO HS 06/29/14 09/16/19 History Venlafaxine HCl ER [Effexor Xr] 75 mg PO DAILY 06/29/14 09/16/19 History Cephalexin [Keflex] 500 mg PO BID 7 Days #14 cap 09/10/19 09/16/19 Rx Ondansetron Odt [Zofran Odt] 4 mg PO Q8HR PRN #10 tab 09/10/19 09/16/19 Rx Hydrocodone/Acetaminophen [[place] 1 tab PO Q6HR PRN 09/16/19 09/16/19 History 5-325] Timolol 0.5% Ophth Soln [[place] 1 drop BOTH EYES DAILY 09/16/19 09/16/19 History 0.5% Ophth Soln] carBAMazepine [TEGretol XR] 200 mg PO BID 09/16/19 09/16/19 History clonazePAM [KlonoPIN] 0.5 mg PO BID 09/16/19 09/16/19 History traMADol HCL [Ultram] 50 mg PO Q4HR PRN 09/16/19 09/16/19 History Allergies Allergy/AdvReac Type Severity Reaction Status Date / Time No Known Allergies Allergy Verified 09/16/19 20:39 Physical Examination - Vital Signs Vital Signs: Vital Signs Temp Pulse Pulse Pulse Pulse Resp BP 09/18/19 08:41 66 72 61 128/74 09/18/19 07:10 98.2 F 80 18 09/18/19 04:00 98.3 F 83 18 09/18/19 03:05 18 09/18/19 00:00 18 09/17/19 23:36 98.7 F 82 18 09/17/19 20:00 18 09/17/19 19:42 98.6 F 69 18 09/17/19 16:00 98.4 F 67 18 BP BP BP BP Pulse Ox 09/18/19 08:41 145/79 106/67 93 L 09/18/19 07:10 149/84 93 L 09/18/19 04:00 172/95 95 09/18/19 03:05 09/18/19 00:00 09/17/19 23:36 152/78 93 L 09/17/19 20:00 09/17/19 19:42 128/79 95 09/17/19 16:00 99/64 93 L Intake and Output 09/17/19 09/18/19 09/18/19 22:59 06:59 14:59 Intake Total 440 Balance 440 Intake: Oral 240 Other 200 Other: Voiding Method Bedside Commode Bedside Commode # Voids 1 1 1 Results - Laboratory Findings CBC and BMP: 09/18/19 04:14 09/18/19 04:17 Abnormal Lab Findings: Abnormal Labs 09/17/19 09/18/19 12:31 04:17 Chloride 110 H Glucose 119 H 105 H Total Protein 5.8 L Albumin 3.2 L
[2019-09-18] MEDS ORDERED: METOCLOPRAMIDE 5 MG/ML 2 ML VIAL IVP PRN (12:35)
--- NOTE | 2019-09-18 13:14 | PN ---
PROGRESS NOTE DATE OF SERVICE: 09/18/2019 This 84-year-old woman was admitted with multiple symptomatology including syncope was thought to have a ventricular arrhythmia, but a detailed evaluation of the pacemaker did not show any acute abnormality. Vasovagal syncope is considered. Patient also had trigeminal neuralgia on the left side and inability to take Tegretol. Neurology has seen the patient and recommended Trileptal at this time. Otherwise, the patient also complains of weakness. The patient also complains of abdominal pain, nausea also. Patient was closely monitored. EKG did not show acute abnormalities. PAST MEDICAL HISTORY: Reviewed. REVIEW OF SYSTEMS: CARDIOVASCULAR SYSTEM: As mentioned earlier. RESPIRATORY SYSTEM: As mentioned earlier. GI: As mentioned earlier. : No dysuria. NERVOUS SYSTEM: No numbness or weakness. CURRENT MEDICATIONS: Current medications are reviewed and include: 1. Tylenol 500 mg q.6 p.r.n. 2. [place] 5 mg q.6 p.r.n. 3. Xanax 0.25 t.i.d. 4. Aspirin 81 mg daily. 5. Lipitor 10 mg at bedtime. 6. Keflex 500 mg p.o. b.i.d. 7. Klonopin 0.5 mg p.o. b.i.d. 8. Heparin 5000 subcu b.i.d. 10.Reglan 5 mg q.6 p.r.n. 11.Multivitamins one p.o. daily. 12.Narcan p.r.n. 13.Zofran 4 mg IV q.8. 14.Trileptal 150 mg p.o. b.i.d. 15.Ditropan XL 5 mg p.o. daily. 16.Protonix 40 mg IV b.i.d. 17.Restoril 15 mg at bedtime, p.r.n. 18.Timoptic 1 drop both eyes. 19.Ultram 50 mg q.4 p.r.n. 20.Effexor XR 75 mg p.o. daily. PHYSICAL EXAMINATION: Patient is alert and oriented x3. Pulse is 66, blood pressure 128/74, respirations 16, temperature 97.9, pulse ox 93% on room air. HEENT: Conjunctivae normal. Oral mucosa moist. Neck is no jugular venous distention. No carotid bruit. No lymph node enlargement. CARDIOVASCULAR: S1, S2 muffled. RESPIRATORY: Breath sounds diminished at the bases. A few rhonchi. No crackles. ABDOMEN: Soft. Mild diffuse discomfort. No guarding. No rigidity. No mass palpable. LEGS: No edema, no swelling. NERVOUS SYSTEM: Higher function as mentioned. Moves all 4 limbs. No focal motor or sensory deficits. LYMPHATICS: No lymphadenopathy of the neck, axillae or groin. SKIN: No ulcer, rash or bleeding. JOINTS: No active deforming arthropathy. LABS: CBC within normal. Sodium 139, potassium 3.5. ASSESSMENT: 1. Syncope possibly vasovagal, possibly orthostatic hypotension. 2. No evidence of cardiac arrhythmia on the pacemaker interrogation. 3. Mild orthostatic changes. 4. Weakness and dizziness with dehydration, present on admission. 5. Left-sided trigeminal neuralgia with failure of outpatient treatment. 6. Possible acute gastritis. 7. History of gastroesophageal reflux disease. 8. Hyperlipidemia. 9. History of degenerative joint disease. 10.History of irritable bowel syndrome. 11.History of overactive bladder. 12.History of peripheral neuropathy. 13.History of left hip bursitis. 14.History of cholecystectomy. 15.History of hysterectomy. 16.History of cervical disc history. 17.History of anxiety, depression. 18.FULL CODE. RECOMMENDATIONS AND DISCUSSION: This 84-year-old woman who presented with multiple complex medical issues. I would recommend to continue the current medications, continue symptomatic treatment. I would recommend trial with Trileptal. Otherwise, I would also recommend continue with IV fluids. Gastroenterology evaluation for possible upper endoscopy otherwise would also recommend a CAT scan of the abdomen and pelvis to complete the workup. Continue the rest of medications. Prognosis guarded. Further recommendations to follow. MMODL / IJN: [id number] / MTDD
[2019-09-18] MEDS: OXcarbazepine 150 MG TAB PO SCH ×2 (13:16→20:20)
[2019-09-18] MEDS: IOPAMIDOL CONTRAST (ORAL USE) VIAL PO PRN ×2 (13:34→14:25)
[2019-09-18] MEDS: PANTOPRAZOLE 40 MG/10 ML VIAL IVP SCH ×2 (14:25→21:59)
--- NOTE | 2019-09-18 15:41 | CT ---
EXAMINATION TYPE: CT abdomen pelvis wo con DATE OF EXAM: 09/18/2019 COMPARISON: None HISTORY: Abdominal pain CT DLP: 842.6 mGycm Examination of the solid and hollow viscera is limited given the lack of contrast. FINDINGS: LUNG BASES: No evidence for nodule. No evidence for infiltrate. LIVER/GB: The gallbladder surgically absent. No space-occupying hepatic lesion. PANCREAS: No pancreatic mass identified. No inflammatory process seen. SPLEEN: No evidence for splenomegaly. No intrasplenic lesions seen. ADRENALS: No adrenal nodules identified. No evidence for thickening. KIDNEYS: No evidence for renal mass. No nephrolithiasis. No hydronephrosis. BOWEL: Appendix has a normal appearance. No evidence of bowel obstruction. No inflammatory process. Lymph nodes: No evidence for adenopathy greater than 1 cm. Abdominal aorta: Atheromatous changes seen. No evidence for aneurysm. Genital organs: No significant abnormality. Other: No significant abnormality. IMPRESSION: 1. No distinct abnormality to account for the patient's symptoms.
[2019-09-18] MEDS: ATORVASTATIN 10 MG TAB PO SCH (20:21)
[2019-09-19 05:32] LABS: Basophils # (A) 0.1 k/uL (0-0.2); Basophils % (A) 1 %; Eosinophils # (A) 0.3 k/uL (0-0.7); Eosinophils % (A) 4 %; HCT 32.9 % (34.0-46.0); HGB 11.1 gm/dL (11.4-16.0); Lymphocytes # (A) 1.3 k/uL (1.0-4.8); Lymphocytes % (A) 19 %; MCH 30.7 pg (25.0-35.0); MCHC 33.7 g/dL (31.0-37.0); Mean Platelet Volume 6.7; Monocytes # (A) 0.5 k/uL (0-1.0); Monocytes % (A) 8 %; Neutrophils # (A) 4.6 k/uL (1.3-7.7); Neutrophils % (A) 67 %; Platelet Count 248 k/uL (150-450); RBC 3.61 m/uL (3.80-5.40); RDW 13.8 % (11.5-15.5); WBC 6.9 k/uL (3.8-10.6)
[2019-09-19 05:36] LABS: African American GFR (CKD) >90 (>60 ml/min/1.73 sqM); Anion Gap 5 mmol/L; Blood Urea Nitrogen 7 mg/dL (7-17); Calcium 8.7 mg/dL (8.4-10.2); Carbon Dioxide 26 mmol/L (22-30); Chloride 109 mmol/L (98-107); Glucose 100 mg/dL (74-99); Non-African American GFR(CKD) 87 (>60 ml/min/1.73 sqM); Potassium 3.4 mmol/L (3.5-5.1); Sodium 140 mmol/L (137-145)
--- NOTE | 2019-09-19 06:47 | P.CONS ---
History of Present Illness - Reason for Consult Consult date: 09/18/19 Nausea, abdominal cramping Requesting physician: Radha Vu - Chief Complaint Syncope - History of Present Illness 84-year-old female with multiple medical comorbidities including chronic back pain, anxiety, depression, trigeminal neuralgia, hyperlipidemia, GERD, osteoar thritis, irritable bowel syndrome ((mixed with both constipation and diarrhea) and prior pacemaker placement who presents to the hospital due to complaints of a syncope. The patient reports passing out multiple times while being escorted to the bathroom. She subsequently underwent interrogation of her pacemaker with no abnormality seen. Suspicion at this time is for vasovagal syncope. The jesusita ent also reports decreased oral intake over the past month. She reports frequent reflux which was not controlled with omeprazole therapy which she was taking once a day. In addition she would often takes Mylanta for breakthrough heartburn. She reports decreased oral intake and difficulty eating secondary to her symptoms of nausea with intermittent vomiting. She also has a mixed irritable bowel syndrome with both constipation and diarrhea. Her last colonoscopy within the past 5-10 years significant for diverticulosis and incomplete due to poor prep. Computed tomography scan on current presentation negative for any acute abnormalities. Review of Systems REVIEW OF SYSTEMS: CONSTITUTIONAL: Denies any fevers, chills, weight change or fatigue. CARDIOVASCULAR: Denies any chest pain, palpitations high or low blood pressures, but does report a syncopal episode RESPIRATORY: Denies any shortness of breath, hemoptysis or cough. GENITOURINARY: No dysuria or hematuria. MUSCULOSKELETAL: No focal weakness reported. SKIN: Denies any new rashes or lesions, jaundice or pallor. PSYCHIATRIC: Denies any new symptoms with does have a history of anxiety and depression. NEUROLOGY: Denies headache, denies any new focal deficits. EARS/NOSE/THROAT: No recent hearing change, congestion, nasal discharge or sore throat. EYES: No pain in eyes, discharge or change in vision. GASTROINTESTINAL: As per HPI. Past Medical History Past Medical History: GERD/Reflux, Hyperlipidemia, Osteoarthritis (OA) Additional Past Medical History / Comment(s): HX OF IBS, SYNCOPE, OVER ACTIVE BLADDER, CHRONIC BACK PAIN, trigeminal neuralgia, neuropathy, bursitis in hip left. History of Any Multi-Drug Resistant Organisms: None Reported Past Surgical History: Cholecystectomy, Hysterectomy, Pacemaker Additional Past Surgical History / Comment(s): CERVICAL DISC SURGERY, RT ELBOW CARPAL RELEASE. Past Anesthesia/Blood Transfusion Reactions: Previous Problems w/ Anesthesia Additional Past Anesthesia/Blood Transfusion Reaction / Comm: STATES BLOODPRESSURE DROPS Type of Cardiac Device: Permanent Pacemaker Device Placement Date:: [employer] 2005 Past Psychological History: Anxiety, Depression Smoking Status: Never smoker Past Alcohol Use History: Occasional Past Drug Use History: None Reported - Past Family History Daughter(s) Family Medical History: Cancer Additional Family Medical History / Comment(s): THYROID CANCER Medications and Allergies Home Medications Medication Instructions Recorded Confirmed Type Aspirin EC [Ecotrin Low Dose] 81 mg PO DAILY 06/29/14 09/16/19 History Calcium Citrate/Vitamin D3 1 tab PO BID 06/29/14 09/16/19 History [Calcium Citrate - Vit D3 Tab] Multivitamins, Thera [Multivitamin] 1 tab PO DAILY 06/29/14 09/16/19 History Omeprazole [PriLOSEC] 20 mg PO DAILY 06/29/14 09/16/19 History Oxybutynin Chloride [Ditropan XL] 5 mg PO DAILY 06/29/14 09/16/19 History Simvastatin [Zocor] 20 mg PO HS 06/29/14 09/16/19 History Venlafaxine HCl ER [Effexor Xr] 75 mg PO DAILY 06/29/14 09/16/19 History Cephalexin [Keflex] 500 mg PO BID 7 Days #14 cap 09/10/19 09/16/19 Rx Ondansetron Odt [Zofran Odt] 4 mg PO Q8HR PRN #10 tab 09/10/19 09/16/19 Rx Hydrocodone/Acetaminophen [K[place]beer 1 tab PO Q6HR PRN 09/16/19 09/16/19 History 5-325] Timolol 0.5% Ophth Soln [Timoptic 1 drop BOTH EYES DAILY 09/16/19 09/16/19 History 0.5% Ophth Soln] carBAMazepine [TEGretol XR] 200 mg PO BID 09/16/19 09/16/19 History clonazePAM [KlonoPIN] 0.5 mg PO BID 09/16/19 09/16/19 History traMADol HCL [Ultram] 50 mg PO Q4HR PRN 09/16/19 09/16/19 History Allergies Allergy/AdvReac Type Severity Reaction Status Date / Time No Known Allergies Allergy Verified 09/16/19 20:39 Physical Exam Vitals: Vital Signs Temp Pulse Pulse Pulse Pulse Resp BP 09/18/19 16:00 98.4 F 65 19 09/18/19 11:08 97.9 F 71 18 09/18/19 08:41 66 72 61 128/74 09/18/19 07:10 98.2 F 80 18 09/18/19 04:00 98.3 F 83 18 09/18/19 03:05 18 09/18/19 00:00 18 09/17/19 23:36 98.7 F 82 18 09/17/19 20:00 18 09/17/19 19:42 98.6 F 69 18 BP BP BP BP Pulse Ox 09/18/19 16:00 130/79 96 09/18/19 11:08 105/58 94 L 09/18/19 08:41 145/79 106/67 93 L 09/18/19 07:10 149/84 93 L 09/18/19 04:00 172/95 95 09/18/19 03:05 09/18/19 00:00 09/17/19 23:36 152/78 93 L 09/17/19 20:00 09/17/19 19:42 128/79 95 Intake and Output 09/18/19 09/18/19 09/18/19 06:59 14:59 22:59 Intake Total 560 Balance 560 Intake: Oral 360 Other 200 Other: Voiding Method Bedside Commode Bedside Commode Bedside Commode # Voids 1 1 On physical examination, patient appears comfortable in no apparent distress. HEAD: Normocephalic, atraumatic. EYES: No scleral icterus. No conjunctival injection. MOUTH: No lesions, tongue midline. NECK: Trachea midline, no gross abnormalities. CHEST: Clear to auscultation with no wheezing or rhonchi appreciated. HEART: S1, S2 appreciated. ABDOMEN: Soft, obese. Bowel sounds are positive. No organomegaly. No guarding or rigidity. EXTREMITIES: No pedal edema. SKIN: No rashes, no jaundice. NEUROLOGIC: Alert and oriented x3. No focal deficits. Results CBC & Chem 7: 09/18/19 04:14 09/18/19 04:17 Labs: Abnormal Lab Results - Last 24 Hours (Table) 09/18/19 Range/Units 04:17 Chloride 110 H (98-107) mmol/L Glucose 105 H (74-99) mg/dL CT scan - abdomen: report reviewed (Computed tomography scan of the abdomen with no acute findings.) Assessment and Plan (1) Nausea and vomiting Narrative/Plan: 84-year-old with multiple medical comorbidities who presented for evaluation of syncope with suspicion for vasovagal syncope after evaluation by the neurology and cardiology services. The patient also reports decreased oral intake over the past few months and uncontrolled reflux. She has intermittent episodes of nausea and vomiting and stopped taking her reflux medications at home. At this time suspicion is for uncontrolled GERD with plan for EGD to rule out esophagitis/gastritis, peptic ulcer disease, or other etiology. Current Visit: Yes Status: Acute Code(s): R11.2 - NAUSEA WITH VOMITING, UNSPECIFIED SNOMED Code(s): 12489775 (2) Irritable bowel syndrome with both constipation and diarrhea Current Visit: Yes Status: Acute Code(s): K58.2 - MIXED IRRITABLE BOWEL SYNDROME SNOMED Code(s): 70138992 (3) GERD (gastroesophageal reflux disease) Current Visit: Yes Status: Acute Code(s): K21.9 - GASTRO-ESOPHAGEAL REFLUX DISEASE WITHOUT ESOPHAGITIS SNOMED Code(s): 162438557 Plan: Supportive care Okay for diet Nothing by mouth after midnight Would recommend discharge with twice daily PPI therapy Plan for EGD tomorrow for further evaluation No plans for colonoscopy at this time, patient should follow-up after discharge if further endoscopic evaluation is considered Computed tomography scan of the abdomen reviewed Thank you for allowing us to participate in the care of the patient we will continue to follow
[2019-09-19] MEDS: PANTOPRAZOLE 40 MG/10 ML VIAL IVP SCH ×2 (08:10→21:18)
[2019-09-19] MEDS: HEPARIN SODIUM,PORCINE 5,000 UNIT/ML 1 ML VIAL SQ SCH ×2 (08:10→21:19)
[2019-09-19] MEDS: TIMOLOL 0.5% OPHTH DROPS 5 ML BTL BOTH EYES SCH (08:10)
[2019-09-19] MEDS ORDERED: Potassium Replacement Protocol 1 EACH MISC MISCELLANE PRN (13:19)
[2019-09-19] MEDS ORDERED: PROPOFOL 10 MG/ML 20 ML VIAL IV ONE (15:29)
[2019-09-19] MEDS ORDERED: LIDOCAINE 1% INJ 10MG/ML (20 ML MDV) ONE (15:29)
[2019-09-19] MEDS ORDERED: IV FLUID CONTINUATION 1,000 ML IV ONE (15:29)
--- NOTE | 2019-09-19 16:04 | PN ---
PROGRESS NOTE DATE OF SERVICE: 09/19/2019 This 84-year-old woman who was admitted with multiple symptomatology, including dizziness and syncope, also has nausea and abdominal discomfort at this time. Dr. Milligan is planning EGD today. CT scan did not show an acute abnormality. Patient also has trigeminal neuralgia. Neurology saw the patient and Trileptal was initiated. Patient has some dehydration. Patient had been unable to keep anything down for the last several days prior to admission. Patient is closely monitored. Past medical history reviewed. REVIEW OF SYSTEMS: CARDIOVASCULAR SYSTEM: No angina, palpitations. RESPIRATORY SYSTEM: As mentioned earlier. GI: No nausea, vomiting. : No dysuria or retention. NERVOUS SYSTEM: No numbness. Otherwise as mentioned earlier. ALLERGY/IMMUNOLOGY: No asthma or hayfever. MUSCULOSKELETAL: As mentioned earlier. PHYSICAL EXAMINATION: Patient alert and oriented x3. Pulse is 86, blood pressure 140/83, respirations 16, temperature normal, pulse ox 96% on room air. Orthostatic changes were noted yesterday. HEENT: Conjunctivae normal. NECK: No jugular venous distention. CARDIOVASCULAR SYSTEM: S1, S2 muffled. RESPIRATORY SYSTEM: Breath sounds diminished at the bases. No rhonchi. No crackles. ABDOMEN: Soft, obese. Mild diffuse discomfort. No guarding. No rigidity. No mass palpable. LEGS: No edema. No swelling. NERVOUS SYSTEM: No focal deficit. LABS: WBC 6.9, hemoglobin 11.1. Sodium 140, potassium 3.4. ASSESSMENT: 1. Syncope, possibly vasovagal, possibly orthostatic hypotension, present on admission. 2. No evidence of cardiac arrhythmia on pacemaker interrogation. 3. Vomiting; possibly acute gastritis. Rule out peptic ulcer disease per EGD. 4. Mild orthostatic changes. 5. Weakness, dizziness and dehydration, present on admission. 6. Left-sided trigeminal neuralgia with failure of outpatient treatment. 7. Possible acute gastritis. 8. History of gastroesophageal reflux disease. 9. Hyperlipidemia. 10.History of degenerative joint disease. 11.History of irritable bowel syndrome. 12.History of over-reactive bladder. 13.History of peripheral neuropathy. 14.History of left hip bursitis. 15.History of cholecystectomy. 16.History of hysterectomy. 17.History of cervical disc surgery. 18.History of anxiety, depression. 19.FULL CODE. RECOMMENDATIONS AND DISCUSSION: I recommend to continue current medications, continue with the monitoring, symptomatic treatment. Otherwise, continue with the proton pump inhibitors. Monitor blood pressure closely. EGD by Dr. Milligan. The family is concerned about the patient's symptomatology. I have discussed at length with the patient, her and the patient's daughter at the bedside. We will continue to monitor. See orders for further details. Supplement potassium. DVT prophylaxis. Otherwise, prognosis is guarded because of multiple complex medical issues. Further recommendations to follow. MMODL / IJN: [id number] /
--- NOTE | 2019-09-19 16:41 | P.PCN ---
Date of Procedure: 09/19/19 Description of Procedure: BRIEF HISTORY: 84-year-old female with multiple medical comorbidities including chronic back pain, anxiety, depression, trigeminal neuralgia, hyperlipidemia, GERD, osteoarthritis, irritable bowel syndrome ((mixed with both constipation and diarrhea) and prior pacemaker placement who presents to the hospital due to complaints of a syncope. The patient reports passing out multiple times while being escorted to the bathroom. She subsequently underwent interrogation of her pacemaker with no abnormality seen. Suspicion at this time is for vasovagal syncope. The patient also reports decreased oral intake over the past month. She reports frequent reflux which was not controlled with omeprazole therapy which she was taking once a day. In addition she would often takes Mylanta for breakthrough heartburn. She reports decreased oral intake and difficulty eating secondary to her symptoms of nausea with intermittent vomiting. She also has a mixed irritable bowel syndrome with both constipation and diarrhea. Her last colonoscopy within the past 5-10 years significant for diverticulosis and incomplete due to poor prep. Computed tomography scan on current presentation negative for any acute abnormalities. PROCEDURE PERFORMED: Esophagogastroduodenoscopy with biopsy. PREOPERATIVE DIAGNOSIS: Nausea and vomiting, epigastric abdominal pain. ESTIMATED BLOOD LOSS: Minimal. IV sedation per anesthesia. PROCEDURE: After informed consent was obtained, the patient was brought into the endoscopy unit. IV sedation was administered by Anesthesia under continuous monitoring. Initially the Olympus GIF-190 video endoscope was inserted into the mouth. Esophagus intubated without any difficulty. It was gradually advanced into the stomach and duodenum and carefully examined. The bulb and the second part of the duodenum appeared normal, with biopsies taken. The scope at this time was withdrawn to the stomach, adequately insufflated with air, and upon careful examination, mucosa of the antrum, body, cardia and the fundus appeared normal, except for diffuse punctate erythema in the antrum, body suggestive of mild gastritis with biopsies taken. The scope was then withdrawn into the esophagus. The GE junction was located at 36 cm from the incisors, with biopsies taken. The esophagus appeared normal. There were no erosions or ulcerations seen and the patient tolerated the procedure well. IMPRESSION: 1. Mild gastritis antrum and body, biopsied. 2. Biopsies of the duodenum and GE junction. RECOMMENDATIONS: The findings of this examination were discussed with the patient and her daughter and . Await pathology from biopsies. Would recommend discharge on twice daily PPI therapy. Okay for discharge from gastroenterology standpoint. Okay to continue medications and diet.
[2019-09-19] MEDS: OXcarbazepine 150 MG TAB PO SCH ×2 (17:13→21:21)
[2019-09-19] MEDS: OXYBUTYNIN XL 5 MG TAB.ER.24 PO SCH (17:13)
[2019-09-19] MEDS: VENLAFAXINE HCL ER 75 MG CAP PO SCH (17:17)
[2019-09-19] MEDS: ASPIRIN 81 MG PO SCH (17:17)
[2019-09-19] MEDS: clonazePAM 0.5 MG TAB PO SCH ×2 (17:19→21:25)
[2019-09-19] MEDS: MULTIVITAMINS, THERA 1 EACH TAB PO SCH (17:19)
[2019-09-19 18:34] VITALS: RESP 18
[2019-09-19] MEDS: SODIUM CHLORIDE 0.9% 1,000 ML IV SCH (21:19)
[2019-09-19] MEDS: ATORVASTATIN 10 MG TAB PO SCH (21:20)
[2019-09-20 04:58] LABS: Basophils % (A) 1 %; Eosinophils # (A) 0.2 k/uL (0-0.7); Eosinophils % (A) 3 %; HCT 34.3 % (34.0-46.0); HGB 11.7 gm/dL (11.4-16.0); Lymphocytes # (A) 1.2 k/uL (1.0-4.8); Lymphocytes % (A) 18 %; MCH 30.5 pg (25.0-35.0); MCV 89.6 fL (80.0-100.0); Mean Platelet Volume 7.1; Monocytes # (A) 0.4 k/uL (0-1.0); Monocytes % (A) 6 %; Neutrophils # (A) 4.8 k/uL (1.3-7.7); Neutrophils % (A) 71 %; Platelet Count 237 k/uL (150-450); RBC 3.83 m/uL (3.80-5.40); RDW 13.7 % (11.5-15.5); WBC 6.7 k/uL (3.8-10.6)
[2019-09-20 05:18] LABS: African American GFR (CKD) >90 (>60 ml/min/1.73 sqM); Anion Gap 8 mmol/L; Blood Urea Nitrogen 8 mg/dL (7-17); Calcium 9.1 mg/dL (8.4-10.2); Carbon Dioxide 25 mmol/L (22-30); Chloride 106 mmol/L (98-107); Glucose 93 mg/dL (74-99); Non-African American GFR(CKD) 86 (>60 ml/min/1.73 sqM); Potassium 3.1 mmol/L (3.5-5.1); Sodium 139 mmol/L (137-145)
[2019-09-20 08:22] VITALS: PULSE 80; TEMP 98
[2019-09-20] MEDS: SODIUM CHLORIDE 0.9% 1,000 ML IV SCH (08:22)
[2019-09-20] MEDS: HEPARIN SODIUM,PORCINE 5,000 UNIT/ML 1 ML VIAL SQ SCH (08:26)
[2019-09-20] MEDS: ASPIRIN 81 MG PO SCH (08:27)
[2019-09-20] MEDS: POTASSIUM CHLORIDE ER 20 MEQ TAB.ER PO SCH ×2 (08:27→08:48)
[2019-09-20] MEDS: clonazePAM 0.5 MG TAB PO SCH (08:27)
[2019-09-20] MEDS: MULTIVITAMINS, THERA 1 EACH TAB PO SCH (08:27)
[2019-09-20] MEDS: OXYBUTYNIN XL 5 MG TAB.ER.24 PO SCH (08:27)
[2019-09-20] MEDS: TIMOLOL 0.5% OPHTH DROPS 5 ML BTL BOTH EYES SCH (08:34)
[2019-09-20] MEDS: VENLAFAXINE HCL ER 75 MG CAP PO SCH (08:34)
[2019-09-20] MEDS: PANTOPRAZOLE 40 MG/10 ML VIAL IVP SCH (08:34)
[2019-09-20] MEDS: OXcarbazepine 150 MG TAB PO SCH (08:37)
[2019-09-20 12:27] VITALS: BP 152/90
[2019-09-20] MEDS ORDERED: ONDANSETRON 4 MG TAB PO STA (13:30)
[2019-09-20 14:26] VITALS: BMI 33.2
[2019-09-20] MEDS: CEPHALEXIN 500 MG CAP PO SCH (15:28)
--- NOTE | 2019-09-20 22:20 | DS ---
DISCHARGE SUMMARY DATE OF SERVICE: 09/20/2019 FINAL DIAGNOSES: 1. Syncope, possibly vasovagal, possibly orthostatic hypotension, present on admission. 2. No evidence of cardiac arrhythmia in the pacemaker interrogation or telemetry. 3. Vomiting; possible acute gastritis, status post esophagogastroduodenoscopy. 4. Mild orthostatic changes. 5. Weakness, dizziness and dehydration, present on admission. 6. Left-sided trigeminal neuralgia with failure of outpatient treatment. 7. History of gastroesophageal reflux disease. 8. Hyperlipidemia. 9. History of degenerative joint disease. 10.History of irritable bowel syndrome. 11.History of overactive bladder. 12.History of peripheral neuropathy. 13.History of left hip bursitis. 14.History of cholecystectomy. 15.History of hysterectomy. 16.History of cervical disc surgery. 17.History of anxiety, depression. 18.FULL CODE. DISCHARGE DISPOSITION: The patient will be discharged in stable condition with guarded prognosis. Total time taken 35 minutes. HISTORY OF PRESENT ILLNESS: This 84-year-old woman with a past medical history of multiple medical problems was admitted with syncope which was thought to be vasovagal. The patient also had orthostatic hypotension. The patient was symptomatically treated, given IV fluids. Patient improved significantly. Patient also had pacemaker interrogation, seen by Cardiology. Cardiology cleared the patient for discharge. The patient also had EGD done by Gastroenterology which showed acute gastritis, and biopsies were taken. Dr. Milligan recommended outpatient followup. Overall, the patient made significant improvement. The patient will be discharged in stable condition with guarded prognosis. Total time taken 35 minutes. I have discussed the diagnosis, prognosis, medication and implications with the patient's family on multiple occasions. On exam, vitals are stable. CARDIOVASCULAR SYSTEM: S1, S2 muffled. ABDOMEN: Soft, non-tender. NERVOUS SYSTEM: No focal deficit. DISCHARGE ADVICE AND MEDICATIONS: 1. Diet is soft, bland as tolerated. 2. Follow up with Dr. Daniel Nicole in 1-2 days. 3. Follow up with Dr. Dodson, Dr. Milligan and Dr. Osborn from Cardiology as recommended. 4. Calcium with vitamin D 1 p.o. b.i.d. 5. Ditropan XL 5 mg p.o. daily. 6. Aspirin 81 mg p.o. daily. 7. Effexor XR 75 mg p.o. daily. 8. Klonopin 0.5 mg b.i.d. 9. Multivitamins 1 p.o. daily. 10.[place] 5 mg q.6 p.r.n. 11.Timolol daily. 12.Ultram 50 mg q.4 p.r.n. 13.Zocor 20 mg at bedtime. 14.Keflex 500 mg p.o. b.i.d. Finish the home dose. 15.Protonix 40 mg p.o. daily. 16.Zofran 4 mg q.8 p.r.n. Once again, the patient will be discharged in stable condition with guarded prognosis. MMODL / IJN: [id number] /
== END 2019-09-20 15:35 | disposition home or self-care (01) ==
LOC: EC 18:46 → 1SOBS 20:18 → UNDOADMOB 20:18 → OBSVTOIN 09-18 11:01 → INTOOBSV 09-18 11:01 → UNDODISIN 09-20 15:35
PROVIDERS: ADMIT Hospitalist; ATTEND Hospitalist
DX: R55 Syncope and collapse (principal); R11.10 Vomiting, unspecified; R53.1 Weakness; E86.0 Dehydration; E78.5 Hyperlipidemia, unspecified; F32.9 Major depressive disorder, single episode, unspecified; F41.9 Anxiety disorder, unspecified; G50.0 Trigeminal neuralgia; G89.29 Other chronic pain; I10 Essential (primary) hypertension; K21.9 Gastro-esophageal reflux disease without esophagitis; K58.2 Mixed irritable bowel syndrome; N32.81 Overactive bladder; R63.3 Feeding difficulties; Z79.82 Long term (current) use of aspirin; Z79.899 Other long term (current) drug therapy; Z80.8 Family history of malignant neoplasm of other organs or systems; Z90.710 Acquired absence of both cervix and uterus; Z45.010 Encounter for checking and testing of cardiac pacemaker pulse generator [battery]; Z90.49 Acquired absence of other specified parts of digestive tract; M70.72 Other bursitis of hip, left hip; Z91.81 History of falling; G62.9 Polyneuropathy, unspecified
CPT/HCPCS: 93005 ×2; 96361 ×3; 96372 ×2; 96374; 96375; 96376 ×2; 99285; 93306; 97162; 88305; 80053; 80048 ×3; 83735; 84132; 85025 ×4; 74176; 43239; G0378 ×5; J1644 ×4; J2405; J2001; J2704; C9113 ×4; 96360

== ENCOUNTER → 2020-07-17 | Outpatient (CLI) | payer MEDICARE ==
[~2020-07-17] MED LIST: SODIUM CHLORIDE 0.9% 500 ML 500 ML in EMPTY BAG 1 BAG IV PRN
[2020-07-17 08:22] VITALS: BP 140/78; PULSE 66; RESP 18; TEMP 98.3
== END | disposition home or self-care (01) ==
LOC: PROCWHC3 08:00
PROVIDERS: ATTEND Internal Medicine
DX: Z93.2 Ileostomy status (principal)
CPT/HCPCS: 99214

== ENCOUNTER → 2022-05-18 | Outpatient (CLI) | payer MEDICARE ==
[2022-05-18 17:50] LABS: HCT 39.5 % (37.2-46.3); HGB 12.5 g/dL (12.0-15.0); MCH 29.6 pg (27.0-32.0); MCHC 31.6 g/dL (32.0-37.0); MCV 93.4 fL (80.0-97.0); Mean Platelet Volume 11.5 fL (9.5-12.2); NRBC Per 100 WBC 0 /100 WBCS (0.0-0.0); Platelet Count 254 X 10*3/uL (140-440); RBC 4.23 X 10*6/uL (4.10-5.20); RDW 13.7 % (11.5-14.5); WBC 6.14 X 10*3/uL (4.50-10.00)
[2022-05-18 18:10] LABS: ALT 19 U/L (8-44); AST 24 U/L (13-35); African American GFR (CKD) 77.4 (60.0-200.0); Albumin 4.6 g/dL (3.8-4.9); Albumin/Globulin Ratio 2.19 (1.60-3.17); Alkaline Phosphatase 153 U/L (41-126); BUN/Creat Ratio 11.63 Ratio (12.00-20.00); Blood Urea Nitrogen 9.3 mg/dL (9.0-27.0); Calcium 9.5 mg/dL (8.7-10.3); Carbon Dioxide 23.7 mmol/L (20.0-27.5); Chloride 97 mmol/L (96-109); Globulin 2.1 g/dL (1.6-3.3); Glucose 101 mg/dL (70-110); LDL Cholesterol,Calculated 68.6 mg/dL (0.0-131.0); Magnesium 2.1 mg/dL (1.5-2.4); Non-African American GFR(CKD) 66.8 (60.0-200.0); Potassium 4.6 mmol/L (3.5-5.5); Sodium 133 mmol/L (135-145); Total Protein 6.7 g/dL (6.2-8.2); VLDL Calculation 15.96 mg/dL (5.00-40.00)
== END | disposition home or self-care (01) ==
LOC: LABWHC1 12:10
PROVIDERS: ATTEND Internal Medicine Interventional Cardiology
DX: I47.1 Supraventricular tachycardia (principal); M79.89 Other specified soft tissue disorders; I10 Essential (primary) hypertension; E78.5 Hyperlipidemia, unspecified
CPT/HCPCS: 36415; 80053; 80061; 83735; 84443; 85027

== ENCOUNTER 2022-05-29 15:05 | Emergency (ER) | payer MEDICARE ==
[2022-05-29 17:00] LABS: Basophils # (A) 0.1 k/uL (0-0.2); Basophils % (A) 1 %; Eosinophils # (A) 0.4 k/uL (0-0.7); Eosinophils % (A) 6 %; HCT 38.6 % (34.0-46.0); HGB 12.5 gm/dL (11.4-16.0); Lymphocytes # (A) 0.8 k/uL (1.0-4.8); Lymphocytes % (A) 13 %; MCH 30.3 pg (25.0-35.0); MCHC 32.4 g/dL (31.0-37.0); MCV 93.5 fL (80.0-100.0); Mean Platelet Volume 8.5; Monocytes # (A) 0.5 k/uL (0-1.0); Monocytes % (A) 7 %; Neutrophils # (A) 4.4 k/uL (1.3-7.7); Neutrophils % (A) 71 %; Platelet Count 276 k/uL (150-450); RBC 4.13 m/uL (3.80-5.40); RDW 13.4 % (11.5-15.5); WBC 6.2 k/uL (3.8-10.6)
[2022-05-29 17:08] LABS: Albumin 4.5 g/dL (3.5-5.0); Calcium 9.2 mg/dL (8.4-10.2); Potassium 4.4 mmol/L (3.5-5.1); Total Bilirubin 0.4 mg/dL (0.2-1.3); Total Protein 7.1 g/dL (6.3-8.2)
[2022-05-29 17:10] LABS: INR 1.1 (<1.2); Partial Thromboplastin Time 23.4 sec (22.0-30.0); Prothrombin Time 11.6 sec (9.0-12.0)
--- NOTE | 2022-05-29 17:11 | XR ---
EXAMINATION TYPE: XR chest 2V DATE OF EXAM: 05/29/2022 COMPARISON: 09/16/2019 HISTORY: Difficulty breathing TECHNIQUE: 2 views FINDINGS: Heart size is normal. Lungs are clear of infiltrate. No heart failure. There are no hilar m asses. Bony thorax is intact. There is left axillary pacemaker. IMPRESSION: No active cardiopulmonary disease. No change.
[2022-05-29 18:12] VITALS: RESP 16
--- NOTE | 2022-05-29 18:28 | US ---
EXAMINATION TYPE: US venous doppler duplex LE DATE OF EXAM: 05/29/2022 6:12 PM COMPARISON: NONE CLINICAL HISTORY: BLE swelling, eval for dvt. ankle swelling, no h/o dvt SIDE PERFORMED: Bilateral TECHNIQUE: The lower extremity deep venous system is examined utilizing real time linear array sonog [place] with graded compression, doppler sonography and color-flow sonography. VESSELS IMAGED: Common Femoral Vein Deep Femoral Vein Greater Saphenous Vein * Femoral Vein Popliteal Vein Small Saphenous Vein * Proximal Calf Veins (* superficial vessels) Right Leg: Negative for DVT, unable to view popiteal vein without color on, good flow seen, 3.3cm Ba ker's cyst noted Left Leg: Negative for DVT IMPRESSION: No evidence of deep vein thrombosis. There is popliteal cyst noted.
[2022-05-29 19:19] VITALS: BP 118/79; PULSE 86; TEMP 97.4
--- NOTE | 2022-05-29 19:35 | ED ---
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 Was told to come be evaluated for possible congestive heart failure by her traveling home physician, Dr. Resendiz. Patient denies shortness of breath, chest pain. Denies abdominal pain, nausea, vomiting. Denies any fevers, chills, cough. Does endorse bilateral lower extremity pitting edema that has been worsening over the last few weeks. Denies orthopnea. Denies PND. Denies any lower extremity pain. Primarily concerned regarding the patient's leg swelling. The chief complaint does say shortness of breath, however patient denies any shortness of breath and states that the reason why she came in was for the swelling in her lower extremities and further workup. - Related Data Home Medications Medication Instructions Recorded Confirmed Aspirin EC [Ecotrin Low Dose] 81 mg PO DAILY 06/29/14 05/29/22 Multivitamins, Thera [Multivitamin 1 tab PO DAILY 06/29/14 05/29/22 (formulary)] Oxybutynin Chloride [Ditropan XL] 5 mg PO BID 06/29/14 05/29/22 clonazePAM [KlonoPIN] 0.5 - 1 mg PO HS 09/16/19 05/29/22 Famotidine [Pepcid] 40 mg PO HS 07/17/20 05/29/22 Metoprolol Succinate (ER) [Toprol 25 mg PO DAILY 07/17/20 05/29/22 XL] Atorvastatin [Lipitor] 20 mg PO HS 05/29/22 05/29/22 Cholecalciferol [Vitamin D3 (25 25 mcg PO DAILY 05/29/22 05/29/22 Mcg = 1000 Iu)] Ibuprofen [Motrin Ib] 200 mg PO Q8H PRN 05/29/22 05/29/22 Ondansetron Odt [Zofran Odt] 4 mg PO TID PRN 05/29/22 05/29/22 Pantoprazole [Protonix] 40 mg PO DAILY 05/29/22 05/29/22 Venlafaxine HCl ER [Effexor Xr] 150 mg PO DAILY 05/29/22 05/29/22 carBAMazepine 200 mg PO BID 05/29/22 05/29/22 Previous Rx's Medication Instructions Recorded Furosemide [Lasix] 20 mg PO DAILY 14 Days #14 tab 05/29/22 Allergies Allergy/AdvReac Type Severity Reaction Status Date / Time No Known Allergies Allergy Verified 05/29/22 17:59 Review of Systems ROS Statement: Those systems with pertinent positive or pertinent negative responses have been documented in the HPI. Review of Systems: CONST: Denies fever EYES: Denies blurry vision ENT: Denies nasal congestion C/V: Denies Chest pain RESP: Denies shortness of breath GI: Denies abdominal pain : Denies dysuria SKIN: Denies rash. MSK: Endorses lower external swelling. NEURO: Denies headache ROS Other: All systems not noted in ROS Statement are negative. Past Medical History Past Medical History: GERD/Reflux, Hyperlipidemia, Osteoarthritis (OA) Additional Past Medical History / Comment(s): HX OF IBS, SYNCOPE, OVER ACTIVE BLADDER, CHRONIC BACK PAIN, trigeminal neuralgia, neuropathy, bursitis in hip left. DIVERTICULITIS. History of Any Multi-Drug Resistant Organisms: None Reported Past Surgical History: Bowel Resection, Cholecystectomy, Hysterectomy, Pacemaker Additional Past Surgical History / Comment(s): CERVICAL DISC SURGERY, RT ELBOW CARPAL RELEASE. COLON REMOVED. ILEOSTOMY. Past Anesthesia/Blood Transfusion Reactions: Previous Problems w/ Anesthesia Additional Past Anesthesia/Blood Transfusion Reaction / Comment(s): STATES BLOODPRESSURE DROPS Type of Cardiac Device: Permanent Pacemaker Device Placement Date:: [employer] 2005 Past Psychological History: Anxiety, Depression Smoking Status: Never smoker Past Alcohol Use History: None Reported Past Drug Use History: None Reported - Past Family History Daughter(s) Family Medical History: Cancer Additional Family Medical History / Comment(s): THYROID CANCER General Exam - General Exam Comments Initial Comments: General: Appears in no acute distress. HEAD: Normal with no signs of head trauma. EYES: PERRLA, EOMI, conjunctiva normal, no discharge. ENT: Hearing grossly intact, normal oropharynx. RESPIRATORY: Clear breath sounds bilaterally. No wheezes, rales, or rhonchi. No hypoxia. No increased work of breathing. C/V: Regular rate and rhythm. S1 and S2 auscultated, 1-2+ pitting edema bilateral lower extremities, peripheral pulses 2+ and intact throughout ABD: Abd is soft, nontender, nondistended EXT: Normal range of motion, no obvious deformity SKIN: No rashes or lesions observed on exposed skin. NEURO: Alert and oriented 4. No focal deficits. Limitations: no limitations Course Vital Signs 05/29/22 05/29/22 05/29/22 15:21 15:56 18:10 Temperature 98 F Pulse Rate 80 68 80 Respiratory 22 18 16 Rate Blood Pressure 147/85 143/93 139/78 O2 Sat by Pulse 98 99 99 Oximetry 05/29/22 19:16 Temperature 97.4 F L Pulse Rate 86 Respiratory 16 Rate Blood Pressure 118/79 O2 Sat by Pulse 95 Oximetry Medical Decision Making - Medical Decision Making Based on the patient's presentation and physical exam, I'm concerned for possible congestive heart failure for her current symptoms. Does not really have any respiratory or cardiac symptoms other than the pitting edema. Could be dependent edema versus blood clots versus congestive heart failure. Did recommend we obtain cardiac workup, duplexes of bilateral lower extremities, chest x-ray and EKG. There were in agreement this plan. Vital signs are within normal limits. EKG shows no signs of ischemia. Chest x-ray shows no acute cardiopulmonary process. Venous duplex negative for DVT and bilateral lower extremities. Right leg shows a Rubi cyst present. Laboratory studies are remarkable for a troponin that is undetectable. BNP is within normal limits at 65. On reevaluation the patient remains asymptomatic. I spoke with the patient, and updated her on the results of her laboratory studies, imaging, EKG. I discussed with her that appear she is experiencing dependent edema. I do believe it is safe for her to be discharged home at this time with follow-up with her PCP. She is having no laboratory, or imaging data to support congestive heart failure at this time. She exposed understanding. I did discuss this at length with the patient's daughter Abida. They expressed understanding. There were no agreement this plan. I did recommend compression stockings, follow-up with her PCP, we'll provide him with low-dose Lasix prescription. I explained this can be started immediately or when they can talk with her home Dr. Resendiz. They were in agreement this plan. Patient was discharged home at this time. Patient has an echo scheduled outpatient which I recommended she keep the appointment. I will provide the patient with a prescription for Lasix 20 mg. I instructed the patient to follow up with their PCP in the next 1-3 days. I explained that the patient should return to the emergency department if they experience any worsening symptoms. Strict return precautions were discussed with the patient. The patient expressed understanding of these instructions. I answered all questions that the patient had. The patient was discharged home in good condition with their prescriptions and follow up information. - Lab Data Result diagrams: 05/29/22 15:49 05/29/22 15:57 Lab Results 05/29/22 05/29/22 05/29/22 Range/Units 15:49 15:57 15:57 WBC 6.2 (3.8-10.6) k/uL RBC 4.13 (3.80-5.40) m/uL Hgb 12.5 (11.4-16.0) gm/dL Hct 38.6 (34.0-46.0) % MCV 93.5 (80.0-100.0) fL MCH 30.3 (25.0-35.0) pg MCHC 32.4 (31.0-37.0) g/dL RDW 13.4 (11.5-15.5) % Plt Count 276 (150-450) k/uL MPV 8.5 Neutrophils % 71 % Lymphocytes % 13 % Monocytes % 7 % Eosinophils % 6 % Basophils % 1 % Neutrophils # 4.4 (1.3-7.7) k/uL Lymphocytes # 0.8 L (1.0-4.8) k/uL Monocytes # 0.5 (0-1.0) k/uL Eosinophils # 0.4 (0-0.7) k/uL Basophils # 0.1 (0-0.2) k/uL PT 11.6 (9.0-12.0) sec INR 1.1 (<1.2) APTT 23.4 (22.0-30.0) sec Sodium 133 L (137-145) mmol/L Potassium 4.4 (3.5-5.1) mmol/L Chloride 101 (98-107) mmol/L Carbon Dioxide 23 (22-30) mmol/L Anion Gap 9 mmol/L BUN 12 (7-17) mg/dL Creatinine 0.75 (0.52-1.04) mg/dL Est GFR (CKD-EPI)AfAm 84 (>60 ml/min/1.73 sqM) Est GFR (CKD-EPI)NonAf 73 (>60 ml/min/1.73 sqM) Glucose 101 H (74-99) mg/dL Calcium 9.2 (8.4-10.2) mg/dL Total Bilirubin 0.4 (0.2-1.3) mg/dL AST 33 (14-36) U/L ALT 20 (4-34) U/L Alkaline Phosphatase 134 H (38-126) U/L Troponin I (0.000-0.034) ng/mL NT-Pro-B Natriuret Pep pg/mL Total Protein 7.1 (6.3-8.2) g/dL Albumin 4.5 (3.5-5.0) g/dL 05/29/22 05/29/22 Range/Units 15:57 15:57 WBC (3.8-10.6) k/uL RBC (3.80-5.40) m/uL Hgb (11.4-16.0) gm/dL Hct (34.0-46.0) % MCV (80.0-100.0) fL MCH (25.0-35.0) pg MCHC (31.0-37.0) g/dL RDW (11.5-15.5) % Plt Count (150-450) k/uL MPV Neutrophils % % Lymphocytes % % Monocytes % % Eosinophils % % Basophils % % Neutrophils # (1.3-7.7) k/uL Lymphocytes # (1.0-4.8) k/uL Monocytes # (0-1.0) k/uL Eosinophils # (0-0.7) k/uL Basophils # (0-0.2) k/uL PT (9.0-12.0) sec INR (<1.2) APTT (22.0-30.0) sec Sodium (137-145) mmol/L Potassium (3.5-5.1) mmol/L Chloride (98-107) mmol/L Carbon Dioxide (22-30) mmol/L Anion Gap mmol/L BUN (7-17) mg/dL Creatinine (0.52-1.04) mg/dL Est GFR (CKD-EPI)AfAm (>60 ml/min/1.73 sqM) Est GFR (CKD-EPI)NonAf (>60 ml/min/1.73 sqM) Glucose (74-99) mg/dL Calcium (8.4-10.2) mg/dL Total Bilirubin (0.2-1.3) mg/dL AST (14-36) U/L ALT (4-34) U/L Alkaline Phosphatase (38-126) U/L Troponin I <0.012 (0.000-0.034) ng/mL NT-Pro-B Natriuret Pep 65 pg/mL Total Protein (6.3-8.2) g/dL Albumin (3.5-5.0) g/dL - EKG Data -: EKG Interpreted by Me EKG Comments: 12-lead Electrocardiogram Interpretation Note EKG was reviewed and interpreted by myself. 12-lead ECG performed at 1557 is interpreted by me as revealing normal sinus rhythm at a rate of 77 beats per minute. [place] is normal. ME Intervals 156 ms, QRS duration is 82 ms, QTc is 385 ms.. There were no ST or T wave abnormalities to suggest myocardial ischemia or injury. R wave progression across the precordium was satisfactory. By my interpretation this EKG is non-diagnostic for acute ischemia. Disposition Clinical Impression: Dependent edema Disposition: HOME SELF-CARE Condition: Good Instructions (If sedation given, give patient instructions): Lymphedema (ED) Additional Instructions: You are diagnosed with dependent edema. Cardiac workup completed and showed a BNP within normal limits at 36, making the patient negative for congestive heart failure. Troponin is undetectable. Chest Xray shows no signs concerning for fluid overload state. It shows no acute cardiopulmonary process. Ultrasound of the lower extremities is negative for DVT (blood clots). There is a rubi's cyst behind the right knee. In the absence of chest pain, shortness of breath and negative cardiac work up, patient can follow up outpatient for an echo and with her PCP for further evaluation. Prescriptions: Furosemide [Lasix] 20 mg PO DAILY 14 Days #14 tab Is patient prescribed a controlled substance at d/c from ED?: No Referrals: Ramirez Resendiz MD [Primary Care Provider] - 1-2 days Time of Disposition: 19:20
== END 2022-05-29 19:56 | disposition home or self-care (01) ==
LOC: EC 15:05
DX: R22.43 Localized swelling, mass and lump, lower limb, bilateral (principal); K21.9 Gastro-esophageal reflux disease without esophagitis; E78.5 Hyperlipidemia, unspecified; M19.90 Unspecified osteoarthritis, unspecified site; F41.9 Anxiety disorder, unspecified; F32.A Depression, unspecified; Z79.82 Long term (current) use of aspirin
CPT/HCPCS: 36415; 71046; 80053; 83880; 84484; 85025; 85610; 85730; 93005; 93970; 99284

== ENCOUNTER 2025-04-14 21:24 | Observation (INO) | payer MEDICARE ==
--- NOTE | 2025-04-14 21:46 | ED ---
Fever HPI - General Chief Complaint: Back Pain/Injury Stated Complaint: Back Pain Time Seen by Provider: 04/14/25 21:26 Source: patient, RN notes reviewed, old records reviewed, Caregiver Mode of arrival: EMS Limitations: no limitations, altered mental status - History of Present Illness Initial Comments: This is an 89-year-old female to the ER of recent long travel history coming in for back pain today. Patient has no noted history of back pain she was found to have fever in the ER. Patient is lethargic and somnolent on questioning unable to give accurate history over reason in the emergency department or how she got here. Patient did come in by EMS MD Complaint: fever, malaise, other (Back pain) -: unknown Context: sick contacts, recent travel Associated Symptoms: myalgias Treatments Prior to Arrival: none - Related Data Home Medications Medication Instructions Recorded Confirmed Multivitamins, Thera [Multivitamin 1 tab PO DAILY@0800 06/29/14 04/15/25 (formulary)] clonazePAM [KlonoPIN] 0.5 mg PO BID@0800,1700 09/16/19 04/15/25 Famotidine [Pepcid] 40 mg PO HS@199907/17/20 04/15/25 Atorvastatin [Lipitor] 20 mg PO HS@199905/29/22 04/15/25 Cholecalciferol [Vitamin D3 (25 25 mcg PO BID@0800,0 05/29/22 04/15/25 Mcg = 1000 Iu)] Pantoprazole [Protonix] 40 mg PO DAILY@0800 05/29/22 04/15/25 carBAMazepine 200 mg PO BID@0800,1700 05/29/22 04/15/25 Acetaminophen Tab [Tylenol] 1,000 mg PO HS@199904/15/25 04/15/25 Acetaminophen Tab [Tylenol] 500 mg PO Q6HR 04/15/25 04/15/25 Calcium Carbonate [Calcium] 600 mg PO BID@0800,1700 04/15/25 04/15/25 Cetirizine HCl [Zyrtec] 10 mg PO HS@199904/15/25 04/15/25 Fluticasone Nasal [place] [Flonase 2 spr EA NOSTRIL HS@199904/15/25 04/15/25 Nasal [place]] Melatonin 3 mg PO HS@199904/15/25 04/15/25 Metamucil 4 In 1 Fiber Powder 2 tbsp PO DAILY@1300 04/15/25 04/15/25 Metoprolol Tartrate [Lopressor] 25 mg PO DAILY@0800 04/15/25 04/15/25 Mirabegron [Myrbetriq] 25 mg PO DAILY@0800 04/15/25 04/15/25 Nystatin 100,000 Unit/gm Powd 1 applic TOPICAL BID@0800,1700 04/15/25 04/15/25 [Mycostatin Powder] Rivaroxaban [Xarelto] 20 mg PO HS@1700 04/15/25 04/15/25 Venlafaxine HCl [Effexor] 75 mg PO BID@0800,1700 04/15/25 04/15/25 Previous Rx's Medication Instructions Recorded clonazePAM [KlonoPIN] 0.5 mg PO BID@0800,1700 #6 tab 04/17/25 Allergies Allergy/AdvReac Type Severity Reaction Status Date / Time No Known Allergies Allergy Verified 04/15/25 13:26 Review of Systems ROS Statement: Those systems with pertinent positive or pertinent negative responses have been documented in the HPI. ROS Other: All systems not noted in ROS Statement are negative. Past Medical History Past Medical History: GERD/Reflux, Hyperlipidemia, Osteoarthritis (OA) Additional Past Medical History / Comment(s): HX OF IBS, SYNCOPE, OVER ACTIVE BLADDER, CHRONIC BACK PAIN, trigeminal neuralgia, neuropathy, bursitis in hip left. DIVERTICULITIS. History of Any Multi-Drug Resistant Organisms: None Reported Past Surgical History: Bowel Resection, Cholecystectomy, Hysterectomy, Pacemaker Additional Past Surgical History / Comment(s): CERVICAL DISC SURGERY, RT ELBOW CARPAL RELEASE. COLON REMOVED. ILEOSTOMY. Past Anesthesia/Blood Transfusion Reactions: Previous Problems w/ Anesthesia Additional Past Anesthesia/Blood Transfusion Reaction / Comment(s): STATES BLOODPRESSURE DROPS Type of Cardiac Device: Permanent Pacemaker Device Placement Date:: [email or web address] 2005 Past Psychological History: Anxiety, Depression Smoking Status: Never smoker Past Alcohol Use History: None Reported Past Drug Use History: None Reported - Past Family History Daughter(s) Family Medical History: Cancer Additional Family Medical History / Comment(s): THYROID CANCER General Exam Limitations: no limitations, altered mental status General appearance: alert, in no apparent distress, lethargic Head exam: Present: atraumatic, normocephalic, normal inspection Eye exam: Present: normal appearance, PERRL, EOMI. Absent: scleral icterus, conjunctival injection, periorbital swelling ENT exam: Present: normal exam, mucous membranes dry, TM's normal bilaterally Neck exam: Present: normal inspection. Absent: tenderness, meningismus, lymphadenopathy Respiratory exam: Present: normal lung sounds bilaterally. Absent: respiratory distress, wheezes, rales, rhonchi, stridor Cardiovascular Exam: Present: regular rate, normal rhythm, normal heart sounds. Absent: systolic murmur, diastolic murmur, rubs, gallop, clicks GI/Abdominal exam: Present: soft, normal bowel sounds. Absent: distended, tenderness, guarding, rebound, rigid Extremities exam: Present: normal inspection, full ROM, normal capillary refill. Absent: tenderness, pedal edema, joint swelling, calf tenderness Back exam: Present: normal inspection Neurological exam: Present: alert, oriented X3, CN II-XII intact Psychiatric exam: Present: normal affect, normal mood Skin exam: Present: warm, dry, intact, normal color. Absent: rash Course Vital Signs 04/14/25 04/14/25 04/15/25 21:26 21:34 00:01 Temperature 100.5 F H Pulse Rate 93 92 74 Pulse Rate [ Pulse Oximetery ] Respiratory 16 18 16 Rate Blood Pressure 148/104 143/76 104/58 O2 Sat by Pulse 94 L 95 96 Oximetry 04/15/25 04/15/25 04/15/25 01:21 01:29 01:37 Temperature 98.6 F Pulse Rate 64 65 Pulse Rate [ 94 Pulse Oximetery ] Respiratory 18 18 18 Rate Blood Pressure 94/57 96/58 O2 Sat by Pulse 95 95 Oximetry - Reevaluation(s) Reevaluation #1: 04/14/25 22:10 Medical records reviewed Reevaluation #2: 04/15/25 00:16 Patient does have back pain controlled while here in the ER Reevaluation #3: 04/15/25 00:16 Patient informed of results questions answered Reevaluation #4: Was pt. sent in by a medical professional or institution (, PA, CLINICAL TRIALS SPECIALIST, urgent care, hospital, or [facility]cf...) When possible be specific @ -no Did you speak to anyone other than the patient for history (EMS, parent, family, police, friend...)? What history was obtained from this source @ -no Did you review nursing and triage notes (agree or disagree)? Why? @ -agree Are old charts reviewed (outside hosp., previous admission, EMS record, old EKG, old radiological studies, urgent care reports/EKG's, ch[facility] records)? Report findings @ -yes Differential Diagnosis (chest pain, altered mental status, abdominal pain women, abdominal pain men, vaginal bleeding, weakness, fever, dyspnea, syncope, headache, dizziness, GI bleed, back pain, seizure, CVA, palpatations, mental health, musculoskeletal)? @ -prior EKG interpreted by me (3pts min.). @ -yes X-rays interpreted by me (1pt min.). @ -yes negative for acute disease CT interpreted by me (1pt min.). @ -yes showing mild CHF U/S interpreted by me (1pt. min.). @ -no What testing was considered but not performed or refused? (CT, X-rays, U/S, labs)? Why? @ -none What meds were considered but not given or refused? Why? @ -none Did you discuss the management of the patient with other professionals (professionals i.e. , PA, CLINICAL TRIALS SPECIALIST, lab, RT, psych nurse, social media senior associate, technical project lead, teacher, loss prevention officer, caser shoe parts)? Give summary @ -no Was smoking cessation discussed for >3mins.? @ -no Was critical care preformed (if so, how long)? @ -no Were there social determinants of health that impacted care today? How? (Homelessness, low income, unemployed, alcoholism, drug addiction, transportation, low edu. Level, literacy, decrease access to med. care, chcf, rehab)? @ -none Was there de-escalation of care discussed even if they declined (Discuss DNR or withdrawal of care, Hospice)? DNR status @ -no What co-morbidities impacted this encounter? (DM, HTN, Smoking, COPD, CAD, Cancer, CVA, ARF, Chemo, Hep., AIDS, mental health diagnosis, sleep apnea, morbid obesity)? @ -none Was patient admitted / discharged? Hospital course, mention meds given and route, prescriptions, significant lab abnormalities, going to OR and other pertinent info. @ - 89 female to the ER for evaluation patient presented initially for uncontrolled back pain for a day to 2 days per family patient is found to have fever here in the ER unknown source, patient also does have back pain is contr olled here in the ER CHF on x-ray with minimal difficulty breathing. Patient will admit for observation of cause of fever Admitted Undiagnosed new problem with uncertain prognosis? @ -no Drug Therapy requiring intensive monitoring for toxicity (Heparin, Nitro, Insulin, Cardizem)? @ -no Were any procedures done? @ -no Diagnosis/symptom? @ -Fever, abdominal pain altered mental status Acute, or Chronic, or Acute on Chronic? @ -Acute Uncomplicated (without systemic symptoms) or Complicated (systemic symptoms)? @ -Complicated Side effects of treatment? @ -no Exacerbation, Progression, or Severe Exacerbation? @ -exacerbation Poses a threat to life or bodily function? How? (Chest pain, [place], [place], pneumonia, PE, COPD, DKA, ARF, appy, cholecystitis, CVA, Diverticulitis, Homicidal, Suicidal, threat to staff... and all critical care pts) @ -yes extremes of age Reevaluation #5: Differential Fever: Pneumonia, viral URI, endocarditis, myocarditis, pericarditis, otitis, sinusitis, peritonsillar Abscess, retropharyngeal Abscess, epiglottitis, peritonitis, appendicitis, Danna cystitis, diverticulitis, hepatitis, colitis, UTI, PID, TOA, pyelonephritis, prostatitis, epididymitis, meningitis, encephalitis, pulmonary embolism, CVA, thyroid storm, pancreatitis, adrenal crisis, cavernous sinus thrombosis, this is not meant to be an all-inclusive list. Differential Back Pain: Strain, zoster, cauda equina syndrome, epidural abscess, vertebral osteomyelitis, discitis, fracture, subluxation, disc herniation, DJD, spinal stenosis, dissection, AAA, pancreatitis, peptic ulcer disease, pyelonephritis, kidney stone, this is not meant to be an all-inclusive list. - Consultations Consultation #1: spoke maryana saunders re admission they agree Medical Decision Making - Medical Decision Making 89 female to the ER for evaluation patient presented initially for uncontrolled back pain for a day to 2 days per family patient is found to have fever here in the ER unknown source, patient also does have back pain is controlled here in the ER CHF on x-ray with minimal difficulty breathing. Patient will admit for observation of cause of fever - Lab Data Result diagrams: 04/16/25 02:23 04/16/25 02:23 Lab Results 04/14/25 04/14/25 04/14/25 Range/Units 21:49 22:05 22:05 WBC 7.57 (4.50-10.00) 10*3/uL RBC 4.07 L (4.10-5.20) 10*6/uL Hgb 13.1 (12.0-15.0) g/dL Hct 37.8 (37.2-46.3) % MCV 92.9 (80.0-97.0) fL MCH 32.2 H (27.0-32.0) pg MCHC 34.7 (32.0-37.0) g/dL Plt Count 174 (140-440) 10*3/uL MPV 9.9 (9.5-12.2) fL Immature Gran % (Auto) 0.1 % Neutrophils % 84.2 % Lymphocytes % 6.3 % Monocytes % 7.3 % Eosinophils % 2.0 % Basophils % 0.1 % Immature Gran # 0.01 (0.00-0.04) 10*3/uL Neutrophils # 6.37 (1.80-7.70) 10*3/uL Lymphocytes # 0.48 L (0.90-5.00) 10*3/uL Monocytes # 0.55 (0.20-1.00) 10*3/uL Eosinophils # 0.15 (0.04-0.35) 10*3/uL Basophils # 0.01 (0.00-0.10) 10*3/uL PT 14.7 H (10.0-12.5) sec INR 1.4 H (<1.2) APTT 32.3 H (22.0-30.0) sec D-Dimer 1.90 H (<0.60) mg/L FEU Sodium (137-145) mmol/L Potassium (3.5-5.1) mmol/L Chloride (98-107) mmol/L Carbon Dioxide (22-30) mmol/L Anion Gap mmol/L BUN (7-17) mg/dL Creatinine (0.52-1.04) mg/dL Est GFR (CKD-EPI)AfAm (>60 ml/min/1.73 sqM) Est GFR (CKD-EPI)NonAf (>60 ml/min/1.73 sqM) Glucose (74-99) mg/dL Plasma Lactic Acid Marcio (0.7-2.0) mmol/L Calcium (8.4-10.2) mg/dL Phosphorus (2.5-4.5) mg/dL Magnesium (1.6-2.3) mg/dL Total Bilirubin (0.2-1.3) mg/dL AST (14-36) U/L ALT (4-34) U/L Alkaline Phosphatase (38-126) U/L Troponin I (0.000-0.034) ng/mL NT-Pro-B Natriuret Pep pg/mL Total Protein (6.3-8.2) g/dL Albumin (3.5-5.0) g/dL Urine Color Urine Appearance (Clear) Urine pH (5.0-8.0) Ur Specific [place] (1.001-1.035) Urine Protein (Negative) Urine Glucose (UA) (Negative) Urine Ketones (Negative) Urine Blood (Negative) Urine Nitrite (Negative) Urine Bilirubin (Negative) Urine Urobilinogen (<2.0) mg/dL Ur Leukocyte Esterase (Negative) Influenza Type A (PCR) Not Detected (Not Detectd) Influenza Type B (PCR) Not Detected (Not Detectd) RSV (PCR) Not Detected (Not Detectd) SARS-CoV-2 (PCR) Not Detected (Not Detectd) 04/14/25 04/14/25 04/14/25 Range/Units 22:05 22:05 22:05 WBC (4.50-10.00) 10*3/uL RBC (4.10-5.20) 10*6/uL Hgb (12.0-15.0) g/dL Hct (37.2-46.3) % MCV (80.0-97.0) fL MCH (27.0-32.0) pg MCHC (32.0-37.0) g/dL Plt Count (140-440) 10*3/uL MPV (9.5-12.2) fL Immature Gran % (Auto) % Neutrophils % % Lymphocytes % % Monocytes % % Eosinophils % % Basophils % % Immature Gran # (0.00-0.04) 10*3/uL Neutrophils # (1.80-7.70) 10*3/uL Lymphocytes # (0.90-5.00) 10*3/uL Monocytes # (0.20-1.00) 10*3/uL Eosinophils # (0.04-0.35) 10*3/uL Basophils # (0.00-0.10) 10*3/uL PT (10.0-12.5) sec INR (<1.2) APTT (22.0-30.0) sec D-Dimer (<0.60) mg/L FEU Sodium 130 L (137-145) mmol/L Potassium 4.5 (3.5-5.1) mmol/L Chloride 97 L (98-107) mmol/L Carbon Dioxide 22 (22-30) mmol/L Anion Gap 11 mmol/L BUN 13 (7-17) mg/dL Creatinine 0.65 (0.52-1.04) mg/dL Est GFR (CKD-EPI)AfAm >90 (>60 ml/min/1.73 sqM) Est GFR (CKD-EPI)NonAf 80 (>60 ml/min/1.73 sqM) Glucose 108 H (74-99) mg/dL Plasma Lactic Acid Marcio 1.8 (0.7-2.0) mmol/L Calcium 9.3 (8.4-10.2) mg/dL Phosphorus 3.8 (2.5-4.5) mg/dL Magnesium 1.9 (1.6-2.3) mg/dL Total Bilirubin 1.0 (0.2-1.3) mg/dL AST 67 H (14-36) U/L ALT 72 H (4-34) U/L Alkaline Phosphatase 136 H (38-126) U/L Troponin I <0.012 (0.000-0.034) ng/mL NT-Pro-B Natriuret Pep 80 pg/mL Total Protein 6.6 (6.3-8.2) g/dL Albumin 3.9 (3.5-5.0) g/dL Urine Color Urine Appearance (Clear) Urine pH (5.0-8.0) Ur Specific [place] (1.001-1.035) Urine Protein (Negative) Urine Glucose (UA) (Negative) Urine Ketones (Negative) Urine Blood (Negative) Urine Nitrite (Negative) Urine Bilirubin (Negative) Urine Urobilinogen (<2.0) mg/dL Ur Leukocyte Esterase (Negative) Influenza Type A (PCR) (Not Detectd) Influenza Type B (PCR) (Not Detectd) RSV (PCR) (Not Detectd) SARS-CoV-2 (PCR) (Not Detectd) 04/14/25 Range/Units 23:18 WBC (4.50-10.00) 10*3/uL RBC (4.10-5.20) 10*6/uL Hgb (12.0-15.0) g/dL Hct (37.2-46.3) % MCV (80.0-97.0) fL MCH (27.0-32.0) pg MCHC (32.0-37.0) g/dL Plt Count (140-440) 10*3/uL MPV (9.5-12.2) fL Immature Gran % (Auto) % Neutrophils % % Lymphocytes % % Monocytes % % Eosinophils % % Basophils % % Immature Gran # (0.00-0.04) 10*3/uL Neutrophils # (1.80-7.70) 10*3/uL Lymphocytes # (0.90-5.00) 10*3/uL Monocytes # (0.20-1.00) 10*3/uL Eosinophils # (0.04-0.35) 10*3/uL Basophils # (0.00-0.10) 10*3/uL PT (10.0-12.5) sec INR (<1.2) APTT (22.0-30.0) sec D-Dimer (<0.60) mg/L FEU Sodium (137-145) mmol/L Potassium (3.5-5.1) mmol/L Chloride (98-107) mmol/L Carbon Dioxide (22-30) mmol/L Anion Gap mmol/L BUN (7-17) mg/dL Creatinine (0.52-1.04) mg/dL Est GFR (CKD-EPI)AfAm (>60 ml/min/1.73 sqM) Est GFR (CKD-EPI)NonAf (>60 ml/min/1.73 sqM) Glucose (74-99) mg/dL Plasma Lactic Acid Marcio (0.7-2.0) mmol/L Calcium (8.4-10.2) mg/dL Phosphorus (2.5-4.5) mg/dL Magnesium (1.6-2.3) mg/dL Total Bilirubin (0.2-1.3) mg/dL AST (14-36) U/L ALT (4-34) U/L Alkaline Phosphatase (38-126) U/L Troponin I (0.000-0.034) ng/mL NT-Pro-B Natriuret Pep pg/mL Total Protein (6.3-8.2) g/dL Albumin (3.5-5.0) g/dL Urine Color Light Yellow Urine Appearance Clear (Clear) Urine pH 6.0 (5.0-8.0) Ur Specific [place] 1.018 (1.001-1.035) Urine Protein Negative (Negative) Urine Glucose (UA) Negative (Negative) Urine Ketones Negative (Negative) Urine Blood Negative (Negative) Urine Nitrite Negative (Negative) Urine Bilirubin Negative (Negative) Urine Urobilinogen <2.0 (<2.0) mg/dL Ur Leukocyte Esterase Negative (Negative) Influenza Type A (PCR) (Not Detectd) Influenza Type B (PCR) (Not Detectd) RSV (PCR) (Not Detectd) SARS-CoV-2 (PCR) (Not Detectd) - EKG Data -: EKG Interpreted by Me (EKG is sinus 87 SD 190 QRS 82 QTc 360) - Radiology Data Radiology results: report reviewed (Chest x-ray CT chest abdomen pelvis positive for CHF), image reviewed Disposition Clinical Impression: Thoracic back pain, Mid back pain, Lumbar radiculopathy, Weakness, AMS (altered mental status), Fever, CHF (congestive heart failure), Pneumonia Disposition: ADMITTED IP TO THIS HOSP Condition: Stable Is patient prescribed a controlled substance at d/c from ED?: No Time of Disposition: 00:00
[2025-04-14 22:27] LABS: Basophils # (A) 0.01 10*3/uL (0.00-0.10); Basophils % (A) 0.1 %; Eosinophils # (A) 0.15 10*3/uL (0.04-0.35); HCT 37.8 % (37.2-46.3); HGB 13.1 g/dL (12.0-15.0); Lymphocytes # (A) 0.48 10*3/uL (0.90-5.00); Lymphocytes % (A) 6.3 %; MCH 32.2 pg (27.0-32.0); MCHC 34.7 g/dL (32.0-37.0); MCV 92.9 fL (80.0-97.0); Mean Platelet Volume 9.9 fL (9.5-12.2); Monocytes # (A) 0.55 10*3/uL (0.20-1.00); Monocytes % (A) 7.3 %; Neutrophils # (A) 6.37 10*3/uL (1.80-7.70); Neutrophils % (A) 84.2 %; Platelet Count 174 10*3/uL (140-440); RBC 4.07 10*6/uL (4.10-5.20); RDW 13.6 % (11.5-14.5); WBC 7.57 10*3/uL (4.50-10.00)
[2025-04-14 22:35] LABS: Influenza A Not Detected (Not Detectd); Influenza B Not Detected (Not Detectd); RSV Not Detected (Not Detectd)
[2025-04-14] MEDS: ACETAMINOPHEN TAB 500 MG TAB PO STA (22:38)
[2025-04-14] MEDS: SODIUM CHLORIDE 0.9% 1,000 ML IV ONE (22:40)
[2025-04-14] MEDS: KETOROLAC 15 MG/ML 1 ML VIAL IVP STA (22:41)
[2025-04-14] MEDS: ONDANSETRON 4 MG/2 ML VIAL IVP STA (22:43)
[2025-04-14 22:47] LABS: ALT 72 U/L (4-34); AST 67 U/L (14-36); African American GFR (CKD) >90 (>60 ml/min/1.73 sqM); Albumin 3.9 g/dL (3.5-5.0); Alkaline Phosphatase 136 U/L (38-126); Anion Gap 11 mmol/L; Blood Urea Nitrogen 13 mg/dL (7-17); Calcium 9.3 mg/dL (8.4-10.2); Carbon Dioxide 22 mmol/L (22-30); Chloride 97 mmol/L (98-107); Glucose 108 mg/dL (74-99); Magnesium 1.9 mg/dL (1.6-2.3); Non-African American GFR(CKD) 80 (>60 ml/min/1.73 sqM); Phosphorus 3.8 mg/dL (2.5-4.5); Sodium 130 mmol/L (137-145); Total Protein 6.6 g/dL (6.3-8.2)
[2025-04-14 22:51] LABS: INR 1.4 (<1.2); Partial Thromboplastin Time 32.3 sec (22.0-30.0); Potassium 4.5 mmol/L (3.5-5.1); Prothrombin Time 14.7 sec (10.0-12.5)
[2025-04-14 22:55] LABS: NT-Pro-B-Type Natriuretic Pept 80 pg/mL
--- NOTE | 2025-04-14 23:04 | XR ---
EXAM: XR Chest, 2 Views CLINICAL HISTORY: XR Reason: Weakness TECHNIQUE: Frontal and lateral views of the chest. COMPARISON: CT abdomen and pelvis from 09/18/2019 FINDINGS: Lungs: Underinflated lungs with 6 cm elevation of the right diaphragm. Mild perihilar and bibasilar subsegmental atelectasis or edema, exaggerated by technique. Pleural space: Unremarkable. No pneumothorax. Heart: Unremarkable. No cardiomegaly. Mediastinum: Unremarkable. Normal mediastinal contour. Bones/joints: Mild osteophytosis throughout the thoracic spine. Moderate degenerative changes in the left shoulder. No acute fracture. Tubes, lines and devices: There is a pacing device in the left with leads extending to the right side of the heart. The cardiac silhouette is mildly enlarged. Upper abdomen: Unremarkable as visualized. No pneumoperitoneum under the diaphragm. IMPRESSION: 1. Underinflated lungs with 6 cm elevation of the right diaphragm. Mild perihilar and bibasilar subsegmental atelectasis or edema, exaggerated by technique. 2. There is a pacing device in the left with leads extending to the right side of the heart. The cardiac silhouette is mildly enlarged.
--- NOTE | 2025-04-14 23:18 | CT ---
EXAM: CT Chest Without Intravenous Contrast CLINICAL HISTORY: CT Reason: pain TECHNIQUE: Axial computed tomography images of the chest without intravenous contrast. CTDI is 10.1 mGy and DLP is 727.5 mGy-cm. This CT exam was performed using one or more of the following dose reduction techniques: automated exposure control, adjustment of the mA and/or kV according to patient size, and/or use of iterative reconstruction technique. COMPARISON: 09/18/2019 CT abdomen and pelvis. FINDINGS: Lungs: Mild central vascular congestion and small amount of bibasilar subsegmental atelectasis and/or fibrosis. No focal consolidation, pneumothorax, or pleural effusion is seen. Pleural space: See above. Heart: Unremarkable. No cardiomegaly. No significant pericardial effusion. No significant coronary artery calcifications. Bones/joints: Mild degenerative changes in the spine. No acute fracture or destructive bone lesion is seen. Soft tissues: Unremarkable. Vasculature: The thoracic aorta is mildly calcified but nondilated. This is a noncontrast study. Lymph nodes: Unremarkable. No enlarged lymph nodes. Tubes, lines and devices: There is a pacing device in the left with leads extending to the right side of the heart. The heart is mildly enlarged. No pericardial effusion. IMPRESSION: 1. Mild central vascular congestion and small amount of bibasilar subsegmental atelectasis and/or fibrosis. No focal consolidation, pneumothorax, or pleural effusion is seen. 2. There is a pacing device in the left with leads extending to the right side of the heart. The heart is mildly enlarged. No pericardial effusion. EXAM: CT Abdomen and Pelvis Without Intravenous Contrast CLINICAL HISTORY: CT Reason: pain TECHNIQUE: Axial computed tomography images of the abdomen and pelvis without intravenous contrast. CTDI is 10.1 mGy and DLP is 727.5 mGy-cm. This CT exam was performed using one or more of the following dose reduction techniques: automated exposure control, adjustment of the mA and/or kV according to patient size, and/or use of iterative reconstruction technique. COMPARISON: No relevant prior studies available. FINDINGS: Lung bases: Unremarkable. No mass. No consolidation. ABDOMEN: Liver: The mm simple cysts in the right lobe of the liver, under the diaphragm. Gallbladder and bile ducts: Previous cholecystectomy. No ductal dilation. Pancreas: Unremarkable. No ductal dilation. Spleen: Unremarkable. No splenomegaly. Adrenals: Unremarkable. No mass. Kidneys and ureters: The kidneys are unremarkable. No hydronephrosis or ureterolithiasis is seen. Stomach and bowel: Bowel loops are nondilated. The colon has been resected. There is a right lower quadrant ileostomy. No pneumoperitoneum, free fluid, or acute inflammatory changes are seen involving the bowel. No mucosal thickening. PELVIS: Appendix: No findings to suggest acute appendicitis. Bladder: The urinary bladder is fully distended but nondilated measuring 12.5 cm craniocaudad. No stones. Reproductive: Unremarkable as visualized. ABDOMEN and PELVIS: Intraperitoneal space: See above. Bones/joints: [id number] multilevel degenerative changes throughout the spine. No acute fracture or subluxation is seen. Soft tissues: Unremarkable. Vasculature: The abdominal aorta is moderately calcified but nondilated. Lymph nodes: Unremarkable. No enlarged lymph nodes. IMPRESSION: 1. Bowel loops are nondilated. The colon has been resected. There is a right lower quadrant ileostomy. No pneumoperitoneum, free fluid, or acute inflammatory changes are seen involving the bowel. 2. The kidneys are unremarkable. No hydronephrosis or ureterolithiasis is seen.
[2025-04-14 23:49] LABS: Appearance,Urine Clear (Clear); Bilirubin,Urine Negative (Negative); Blood,Urine Negative (Negative); Color,Urine Light Yellow; Glucose,Urine (UA) Negative (Negative); Ketones,Urine Negative (Negative); Leukocyte Esterase,Urine Negative (Negative); Nitrite,Urine Negative (Negative); Protein,Urine Negative (Negative); Specific Gravity,Urine 1.018 (1.001-1.035); Urobilinogen,Urine <2.0 mg/dL (<2.0)
[2025-04-15] MEDS ORDERED: NALOXONE 0.4 MG/ML 1 ML VIAL IV PRN (00:13)
[2025-04-15] MEDS ORDERED: IBUPROFEN 400 MG TAB PO PRN (00:13)
[2025-04-15] MEDS: MORPHINE SULFATE 4 MG/ML SYRINGE IV STA (01:18)
[2025-04-15] MEDS: SODIUM CHLORIDE 0.9% 1,000 ML IV SCH (01:37)
[2025-04-15] MEDS: AZITHROMYCIN 500 MG in SODIUM CHLORIDE 0.9% 250 ML IVPB STA (03:37)
[2025-04-15] MEDS: AZITHROMYCIN 500 MG in SODIUM CHLORIDE 0.9% 250 ML IVPB ONE (04:28)
--- NOTE | 2025-04-15 06:08 | P.HPIM ---
History of Present Illness H&P Date: 04/15/25 Chief Complaint: Back pain Patient is a 89 year old female with hyperlipidemia, osteoarthritis presented to the ED with back pain. Patient reports long travel history. Patient seems lethargic and confused and is unable to answer any questions about why and how she got to the ER. At the time of this interview, patient is sleeping, is arousable but is not able to provide history. Per ED staff the patient was alert and oriented when she reached the hospital, and patient was reportedly given Klonopin and a muscle relaxer from home by her family before she got to the [facility]. Denies fever, chills, shortness of breath, cough, chest pain, palpitations, abdominal pain, nausea, vomiting, hematuria, dysuria, hematochezia, melena, headache, slurred speech, numbness, tingling, dizziness, lightheadedness, blurred vision, double vision. ED documentation reviewed. In the ED patient was treated with acetaminophen, ketorolac, 0.9 normal saline, azithromycin, Rocephin, Zofran. Vitals on admission T 100.5 F, SD 93 bpm, RR 16, BP 148/104, SpO2 94% on room air Chest x-ray shows underinflated lungs with 6 cm elevation of the right diaphragm, mild perihilar and bibasilar subsegmental atelectasis or edema exaggerated by technique, pacing device in the left tube with extending to the right side of the heart, cardiac silhouette is mildly enlarged Chest CT shows mild central vascular congestion and small amount of bibasilar subsegmental atelectasis and/or fibrosis, no focal consolidation, pneumothorax or pleural effusion Abdomen pelvis CT scan shows bowel loops are nondilated, colon has been resected, right lower quadrant ileostomy, no pneumoperitoneum, free fluid or acute inflammatory changes, kidneys are unremarkable, no hydronephrosis or ureterolithiasis Labs on admission show WBC 7.57, hemoglobin 13.1, platelet 174, PT 14.7, INR 1.4, APTT 32.3, D-dimer 1.9, sodium 130, potassium 4.5, creatinine 0.65, AST 67, ALT 72, ALP 136, troponin I <0.012 UA is unremarkable Respiratory panel is negative Review of systems: Pertinent positives and negatives as discussed in HPI, a complete review of systems was performed and all other systems are negative. Physical examination: Vital signs reviewed General: nontoxic, no distress, appears at stated age Derm: warm, dry, intact Head: atraumatic, normocephalic, symmetric Eyes: EOMI, anicteric sclera Mouth: no lip lesion, mucus membranes moist Cardiovascular: S1 S2 reg, no murmur Lungs: CTA bilateral, no rhonchi, no rales, no accessory muscle use Abdominal: soft, non-tender to palpation Extremities: 1+ pitting edema b/l LE, No cyanosis, clubbing. Neuro: Alert, Oriented, Gross neurological examination did not reveal any focal deficits. Psych: well appearing, appropriate affect Assessment/Plan: Patient is a 89 year old female with hyperlipidemia, osteoarthritis, presented to the ED with back pain. Patient admitted to internal medicine service. Active: #. Suspected Pneumonia #. Metabolic encephalopathy #. Febrile on admission #. D-dimer elevation D-dimer 1.90 Chest x-ray shows underinflated lungs with 6 cm elevation of the right diaphragm, mild perihilar and bibasilar subsegmental atelectasis or edema exaggerated by technique, there is a pacing device, cardiac silhouette is mildly enlarged Chest CT shows mild central vascular congestion and small amount of bibasilar subsegmental atelectasis and/or fibrosis, no focal consolidation, pneumothorax or pleural effusion Received Rocephin, azithromycin in the ED Continue azithromycin 500 mg IVPB daily for a total of 3 days, Rocephin 2 g IVPB every 24 hours Oxygen supplementation as needed Obtain blood culture DURING my evaluation patient was drowsy, lethargic , answering only leading questions, limited answers. patient was alert oriented X4 earlier when she came in , butpatient was reportedly given Klonopin and a muscle relaxer from home by her family before she got to the hospital. continue to monitor and reevaluate mental status in the morning #. Back pain Received Tylenol, Toradol, morphine in the ED Continue Tylenol, Motrin, morphine for pain management #. Nausea and vomiting Continue ondansetron 4 mg IV every 8 hours as needed #. Hyponatremia Received 1 L of 0.9 normal saline bolus in the ED Continue 0.9 Normal Saline 75 mL/h Monitor CMP #. Coagulopathy #. Transaminitis PT 14.7, INR 1.4, APTT 32.3 Patient denies any abdominal pain Obtain liver ultrasound Monitor coagulation panel and CMP Chronic: #. Hyperlipidemia #. History of permanent pacemaker implantation #. Urinary incontinence #. Chronic lower extremity edema #. Trigeminal neuralgia #. Vitamin D deficiency #. GERD #. Anxiety/depression Resume home meds once verified by the pharmacy F: 0.9 normal saline 75 mL/h E: Hyponatremia N: Regular diet DVT prophylaxis: Lovenox 40 mg SQ daily The patient is admitted with an anticipated less than 2 midnight stay for evaluation of back pain CODE STATUS: FULL CODE Discussed with: Patient Anticipated discharge place: Pending clinical course Dictation was produced using [employer] dictation software. please excuse any grammatical, word or spelling errors. Stas Otoole MD PGY-1 IM I have seen and evaluated the patient today. I Discussed the case with the resident and agree with the resident's findings I edited the assessment and plan as necessary as documented in the resident's note. Past Medical History Past Medical History: GERD/Reflux, Hyperlipidemia, Osteoarthritis (OA) Additional Past Medical History / Comment(s): HX OF IBS, SYNCOPE, OVER ACTIVE BLADDER, CHRONIC BACK PAIN, trigeminal neuralgia, neuropathy, bursitis in hip left. DIVERTICULITIS. History of Any Multi-Drug Resistant Organisms: None Reported Past Surgical History: Bowel Resection, Cholecystectomy, Hysterectomy, Pacemaker Additional Past Surgical History / Comment(s): CERVICAL DISC SURGERY, RT ELBOW CARPAL RELEASE. COLON REMOVED. ILEOSTOMY. Past Anesthesia/Blood Transfusion Reactions: Previous Problems w/ Anesthesia Additional Past Anesthesia/Blood Transfusion Reaction / Comment(s): STATES BLOODPRESSURE DROPS Type of Cardiac Device: Permanent Pacemaker Device Placement Date:: Celsion 2005 Past Psychological History: Anxiety, Depression Smoking Status: Never smoker Past Alcohol Use History: None Reported Past Drug Use History: None Reported - Past Family History Daughter(s) Family Medical History: Cancer Additional Family Medical History / Comment(s): THYROID CANCER Medications and Allergies Home Medications Medication Instructions Recorded Confirmed Type Aspirin EC [Ecotrin Low Dose] 81 mg PO DAILY 06/29/14 05/29/22 History Multivitamins, Thera [Multivitamin 1 tab PO DAILY 06/29/14 05/29/22 History (formulary)] oxyBUTYnin chloride [Ditropan XL] 5 mg PO BID 06/29/14 05/29/22 History clonazePAM [KlonoPIN] 0.5 - 1 mg PO HS 09/16/19 05/29/22 History Famotidine [Pepcid] 40 mg PO HS 07/17/20 05/29/22 History Metoprolol Succinate (ER) [Toprol 25 mg PO DAILY 07/17/20 05/29/22 History XL] Atorvastatin [Lipitor] 20 mg PO HS 05/29/22 05/29/22 History Cholecalciferol [Vitamin D3 (25 25 mcg PO DAILY 05/29/22 05/29/22 History Mcg = 1000 Iu)] Furosemide [Lasix] 20 mg PO DAILY 14 Days #14 tab 05/29/22 Rx Ibuprofen [Motrin Ib] 200 mg PO Q8H PRN 05/29/22 05/29/22 History Ondansetron Odt [Zofran Odt] 4 mg PO TID PRN 05/29/22 05/29/22 History Pantoprazole [Protonix] 40 mg PO DAILY 05/29/22 05/29/22 History Venlafaxine HCl ER [Effexor Xr] 150 mg PO DAILY 05/29/22 05/29/22 History carBAMazepine 200 mg PO BID 05/29/22 05/29/22 History Allergies Allergy/AdvReac Type Severity Reaction Status Date / Time No Known Allergies Allergy Verified 05/29/22 17:59 Physical Exam Vitals: Vital Signs Temp Pulse Resp BP Pulse Ox 04/15/25 00:01 74 16 104/58 96 04/14/25 21:34 92 18 143/76 95 04/14/25 21:26 100.5 F H 93 16 148/104 94 L Intake and Output 04/14/25 04/14/25 04/15/25 14:59 22:59 06:59 Output Total 300 Balance -300 Output: Urine 300 Straight 300 Other: Weight 77.111 kg Results CBC & Chem 7: 04/14/25 22:05 04/14/25 22:05 Labs: Abnormal Lab Results - Last 24 Hours (Table) 04/14/25 04/14/25 04/14/25 Range/Units 22:05 22:05 22:05 RBC 4.07 L (4.10-5.20) 10*6/uL MCH 32.2 H (27.0-32.0) pg Lymphocytes # 0.48 L (0.90-5.00) 10*3/uL PT 14.7 H (10.0-12.5) sec INR 1.4 H (<1.2) APTT 32.3 H (22.0-30.0) sec D-Dimer 1.90 H (<0.60) mg/L FEU Sodium 130 L (137-145) mmol/L Chloride 97 L (98-107) mmol/L Glucose 108 H (74-99) mg/dL AST 67 H (14-36) U/L ALT 72 H (4-34) U/L Alkaline Phosphatase 136 H (38-126) U/L
--- NOTE | 2025-04-15 08:19 | US ---
EXAMINATION TYPE: US liver DATE OF EXAM: 04/15/2025 COMPARISON: NONE CLINICAL INDICATION: Female, 89 years old with history of transaminitis, coagulopathy; TECHNIQUE: Grayscale and color Doppler imaging of the right upper quadrant. FINDINGS: EXAM MEASUREMENTS: Liver Length: 15.3 cm Gallbladder Wall: Surgically absent cm CBD: 0.4 cm, color Doppler imaging was utilized to isolate the common bile duct for measurement. Right Kidney: 10.0x5.0x5.3 cm BOX [employer] PAPERBOARD NOTES: limited study due to pt body habitus & overlying bowel Pancreas: Tail obscured by overlying bowel gas Liver: Increased attenuation, decreased visualization of vessels suggestive of fatty infiltrate, sli ghtly difficult to penetrate Gallbladder: Surgically absent Evidence for sonographic Haynes's sign: No CBD: wnl Right Kidney: ?slightly dilated renal pelvis IMPRESSION: 1. Liver is 15 cm in length and is not enlarged. 2. Echotexture of the liver suggests fatty infiltration or hepatocellular disease. 3. No focal liver masses or biliary ductal dilatation. 4. cholecystectomy. [facility], Workstation: [id number] 04/15/2025 8:16 AM
--- NOTE | 2025-04-15 08:20 | US ---
EXAMINATION TYPE: US venous doppler duplex LE BI DATE OF EXAM: 04/15/2025 7:46 AM COMPARISON: NONE CLINICAL INDICATION: Female, 89 years old with history of RULE OUT DVT; no hx of dvt, mild pain bilat , no thinners, Pain TECHNIQUE: The lower extremity deep venous system is examined utilizing real time linear array sonog [place] with graded compression, color doppler sonography, and spectral doppler. SIDE PERFORMED: Bilateral FINDINGS: VESSELS IMAGED: Common Femoral Vein Deep Femoral Vein Greater Saphenous Vein * Femoral Vein Popliteal Vein Small Saphenous Vein * Proximal Calf Veins (* superficial vessels) The deep venous systems of both lower extremities from the common femoral remains to the proximal shelby f veins are patent and compressible with augmentable flow and with normal waveforms. IMPRESSION: No evidence of bilateral lower extremity DVT from the common femoral veins to the proximal calf veins [facility], , 04/15/2025 8:17 AM
[2025-04-15] MEDS ORDERED: AZITHROMYCIN 500 MG in SODIUM CHLORIDE 0.9% 250 ML IVPB SCH (09:00)
[2025-04-15 09:23] LABS: African American GFR (CKD) >90 (>60 ml/min/1.73 sqM); Anion Gap 9 mmol/L; Blood Urea Nitrogen 9 mg/dL (7-17); Calcium 8.2 mg/dL (8.4-10.2); Carbon Dioxide 18 mmol/L (22-30); Chloride 106 mmol/L (98-107); Glucose 113 mg/dL (74-99); Non-African American GFR(CKD) 85 (>60 ml/min/1.73 sqM); Sodium 133 mmol/L (137-145)
[2025-04-15] MEDS: NYSTATIN 100,000 UNIT/GM POWD 15 GM TOPICAL SCH ×2 (11:16→17:11)
[2025-04-15] MEDS: POTASSIUM CHLORIDE ER 20 MEQ TAB.ER PO STA (11:16)
[2025-04-15] MEDS: MORPHINE SULFATE 4 MG/ML SYRINGE IV PRN (11:17)
[2025-04-15] MEDS: VENLAFAXINE HCL 75 MG TAB PO SCH (18:02)
[2025-04-15] MEDS: RIVAROXABAN 20 MG TAB PO SCH (18:02)
[2025-04-15] MEDS: carBAMazepine 200 MG TAB PO SCH (18:02)
[2025-04-15] MEDS: clonazePAM 0.5 MG TAB PO SCH (18:02)
[2025-04-15] MEDS: clonazePAM 0.5 MG TAB PO STA (18:38)
[2025-04-15] MEDS: ACETAMINOPHEN TAB 325 MG TAB PO PRN (20:09)
[2025-04-15] MEDS: FAMOTIDINE 20 MG TAB PO SCH (20:09)
[2025-04-15] MEDS: ATORVASTATIN 20 MG TAB PO SCH (20:09)
[2025-04-15] MEDS: MELATONIN 3 MG TABLET PO SCH (20:09)
[2025-04-15] MEDS: LORATADINE 10 MG TAB PO SCH (20:09)
[2025-04-15] MEDS: FLUTICASONE NASAL 50MCG/SPRAY 16GM BTL EA NOSTRIL SCH (20:18)
--- NOTE | 2025-04-15 22:20 | P.PN ---
Subjective Progress Note Date: 04/15/25 Patient's family requested a call with the physician. They shared that patient has been taking clozapine for over 15 years with stable dose, they note that she gets confused, shaky, her breathing becomes shallow when she does not get her clozapine dose. They mentioned that she had last dose around 6 PM the day of admission, I notified them that patient was confused during admitting team eval george, concern for clozapine overdose or polypharmacy was raised. Family stated that patient was just exhausted. They were repeatedly requesting her home dose to be continued without any changes although I offered them to half the dose and see how patient does. They also mentioned that every time " somebody is messing around with her meds in the hospital because everybody is afraid with this controlled substance" patient gets confused. Explained that sometimes going through the acute illness, infection, dealing with pain and receiving pain medication, can affect usual response to medication. Family again did not accept the explanation. We will provide with home dose clozapine this p.m. and next a.m., patient to be reevaluated in the morning for possible dose adjustment. Recommend clozapine taper to be done as outpatient with patient's primary, it is a blackbox warning drug, increased mortality risk in elderly population. Family agreed with the above plan. Requested to share discharge summary with patient's PCP in [place] and [place], they provided contact information in the chart. All discussed with RN. Time spent 20 minutes. Objective - Vital Signs Vital signs: Vital Signs Temp 101.2 F H 04/15/25 20:00 Pulse 94 04/15/25 20:00 Resp 18 04/15/25 20:00 BP 134/83 04/15/25 20:00 Pulse Ox 97 04/15/25 20:00 FiO2 Intake & Output 04/15/25 04/15/25 04/16/25 06:59 18:59 06:59 Intake Total 250 100 Output Total 300 Balance -50 100 Weight 77.111 kg Intake: Intake, IV Titration 250 Amount Azithromycin 500 mg In 250 Sodium Chloride 0.9% 250 ml @ 250 mls/hr IVPB ONCE ONE Rx#:[id number] Oral 100 Output: Urine 300 Straight 300 Other: Voiding Method External Catheter - Labs CBC & Chem 7: 04/14/25 22:05 04/15/25 08:57 Labs: Abnormal Lab Results - Last 24 Hours (Table) 04/14/25 04/14/25 04/14/25 Range/Units 22:05 22:05 22:05 RBC 4.07 L (4.10-5.20) 10*6/uL MCH 32.2 H (27.0-32.0) pg Lymphocytes # 0.48 L (0.90-5.00) 10*3/uL PT 14.7 H (10.0-12.5) sec INR 1.4 H (<1.2) APTT 32.3 H (22.0-30.0) sec D-Dimer 1.90 H (<0.60) mg/L FEU Sodium 130 L (137-145) mmol/L Potassium (3.5-5.1) mmol/L Chloride 97 L (98-107) mmol/L Carbon Dioxide (22-30) mmol/L Glucose 108 H (74-99) mg/dL Calcium (8.4-10.2) mg/dL AST 67 H (14-36) U/L ALT 72 H (4-34) U/L Alkaline Phosphatase 136 H (38-126) U/L 04/15/25 Range/Units 08:57 RBC (4.10-5.20) 10*6/uL MCH (27.0-32.0) pg Lymphocytes # (0.90-5.00) 10*3/uL PT (10.0-12.5) sec INR (<1.2) APTT (22.0-30.0) sec D-Dimer (<0.60) mg/L FEU Sodium 133 L (137-145) mmol/L Potassium 3.0 L (3.5-5.1) mmol/L Chloride (98-107) mmol/L Carbon Dioxide 18 L (22-30) mmol/L Glucose 113 H (74-99) mg/dL Calcium 8.2 L (8.4-10.2) mg/dL AST (14-36) U/L ALT (4-34) U/L Alkaline Phosphatase (38-126) U/L
[2025-04-16] MEDS ORDERED: AZITHROMYCIN 500 MG in SODIUM CHLORIDE 0.9% 250 ML IVPB SCH
[2025-04-16] MEDS ORDERED: clonazePAM 0.5 MG TAB PO SCH ×2 (08:00→17:00)
[2025-04-16] MEDS: PANTOPRAZOLE 40 MG TABLET PO SCH (08:41)
[2025-04-16] MEDS: clonazePAM 0.5 MG TAB PO ONE (08:41)
[2025-04-16] MEDS: MULTIVITAMINS, THERA 1 EACH TAB PO SCH (08:41)
[2025-04-16] MEDS: METOPROLOL TARTRATE 25 MG TAB PO SCH (08:41)
[2025-04-16] MEDS: AZITHROMYCIN 500 MG in SODIUM CHLORIDE 0.9% 250 ML IVPB SCH (08:42)
[2025-04-16 10:24] LABS: Basophils # (A) 0.01 X 10*3/uL (0.00-0.10); Basophils % (A) 0.1 %; Eosinophils # (A) 0.14 X 10*3/uL (0.04-0.35); Eosinophils % (A) 1.9 %; HCT 35.2 % (37.2-46.3); HGB 11.1 g/dL (12.0-15.0); Lymphocytes # (A) 0.75 X 10*3/uL (0.90-5.00); Lymphocytes % (A) 10.3 %; MCH 31.1 pg (27.0-32.0); MCHC 31.5 g/dL (32.0-37.0); MCV 98.6 FL (80.0-97.0); Mean Platelet Volume 10.9 FL (9.5-12.2); Monocytes # (A) 0.76 X 10*3/uL (0.20-1.00); Monocytes % (A) 10.5 %; NRBC Per 100 WBC 0 X 10*3/uL (0.00-0.01); Neutrophils # (A) 5.57 X 10*3/uL (1.80-7.70); Neutrophils % (A) 76.9 %; Platelet Count 175 X 10*3/uL (140-440); RBC 3.57 X 10*6/uL (4.10-5.20); RDW 14.1 % (11.5-14.5); WBC 7.25 X 10*3/uL (4.50-10.00)
[2025-04-16 10:46] LABS: Magnesium 1.8 mg/dL (1.5-2.4); Phosphorus 3.3 mg/dL (2.4-5.1)
[2025-04-16 10:47] LABS: ALT 44 U/L (8-44); AST 28 U/L (13-35); Albumin 3.1 g/dL (3.8-4.9); Albumin/Globulin Ratio 1.48 Ratio (1.60-3.17); Alkaline Phosphatase 102 U/L (41-126); BUN/Creat Ratio 9.62 Ratio (12.00-20.00); Blood Urea Nitrogen 7.7 mg/dL (9.0-27.0); Calcium 8.3 mg/dL (8.7-10.3); Carbon Dioxide 18.4 mmol/L (21.6-31.8); Chloride 104 mmol/L (96-109); Globulin 2.1 g/dL (1.6-3.3); Glucose 141 mg/dL (70-110); Sodium 135 mmol/L (135-145); Total Bilirubin 0.3 mg/dL (0.3-1.2); Total Protein 5.2 g/dL (6.2-8.2)
[2025-04-16] MEDS: NON FORMULARY DRUG (Mirabegron [Myrbetriq] 25 MG Tab.Er.24h) PO SCH (10:53)
[2025-04-16] MEDS: PSYLLIUM HUSK 100% 6 GM PACKET PO SCH (13:10)
--- NOTE | 2025-04-16 15:31 | P.PN ---
Subjective Progress Note Date: 04/16/25 Patient was seen and examined. Family at bedside. Mentation improved though still pleasantly confused. CBC and CMP significant for RBC 3.57, Hg 11.1, Hct 35.2, MCV 98.6, bicarb 18.4, AG 12.6, BUN 7.7, glu 141, Ca 8.3, alb 3.1. Pro-shelby 0.2. UA neg. COVID, RSV, Flu neg. Liver US shows fatty infiltration. Venous duplex neg for DVT. General: non toxic, no distress, appears at stated age Derm: warm, dry Head: atraumatic, normocephalic, symmetric Eyes: EOMI, no lid lag, anicteric sclera Mouth: no lip lesion, mucus membranes moist Cardiovascular: S1S2 reg, no murmur Lungs: Decreased BS bilateral, no rhonchi, no rales , no accessory muscle use Ext: no gross muscle atrophy, no edema, no contractures Neuro: no focal neuro deficits Psych: Alert, oriented, appropriate affect Based on my assessment of this patient, this patient meets a high complexity level of care. Sciatica: Decrease Morphine dose to 2 mg IV Q4H PRN. Pain management consulted. Fall precautions. PT and OT consulted. Plans for SNF on discharge. Acute metabolic encephalopathy: Improved. Possibly polypharmacy. Re-start home medications. Fever possibly due to PNA: Tmax 101.2F 04/15. BCx neg. Procal negative. Continue Rocephin 2g IV QD + Azithromycin 500 mg IV QD empirically. Tylenol 650 mg PO Q6H PRN pain. Elevated D-Dimer: Venous duplex neg for DVT. Not on supplemental O2 to suspect PE. Already AC with Xarelto. Hyperlipidemia: Lipitor 20 mg PO QHD. History of permanent pacemaker implantation Urinary incontinence: Mirabegron 25 mg PO QD. AFib: Metoprolol 25 mg PO QD. Xarelto 20 mg PO QHS. Trigeminal neuralgia: Carbamazepine 200 mg PO BID. Vitamin D deficiency: Vit D 25 mcg PO BID. GERD: Pepcid 20 mg PO QHS. Protonix 40 mg PO QD. Anxiety/depression: Klonipine 0.5 mg PO BID. Effexor 75 mg PO BID. CODE STATUS: FULL CODE DVT Prophylaxis: Xarelto PO GI Prophylaxis: Protonix PO Designated medical POA if patient is not able to make medical decisions for themselves: I have reviewed the following it consultant notes: I have reviewed the results of the following tests: CBC, CMP, Liver US, UA, Pro- shelby, COVID/RSV/Flu, Liver US, Venous duplex. I have ordered the following tests: I have discussed the care of this patient with the following independent historian: Family. RIVERA. Case management. I have independently interpreted the following test below: I have discussed the management of this patient with the following physician: Objective - Vital Signs Vital signs: Vital Signs Temp 98.2 F 04/16/25 13:47 Pulse 82 04/16/25 13:47 Resp 19 04/16/25 13:47 BP 130/84 04/16/25 13:47 Pulse Ox 93 L 04/16/25 13:47 FiO2 Intake & Output 04/15/25 04/16/25 04/16/25 18:59 06:59 18:59 Intake Total 100 Balance 100 Intake: Oral 100 Other: Voiding Method External Catheter External Catheter # Voids 4 # Bowel Movements 2 - Labs CBC & Chem 7: 04/16/25 02:23 04/16/25 02:23 Labs: Abnormal Lab Results - Last 24 Hours (Table) 04/16/25 04/16/25 Range/Units 02:23 02:23 RBC 3.57 L (4.10-5.20) X 10*6/uL Hgb 11.1 L (12.0-15.0) g/dL Hct 35.2 L (37.2-46.3) % MCV 98.6 H (80.0-97.0) FL MCHC 31.5 L (32.0-37.0) g/dL Lymphocytes # 0.75 L (0.90-5.00) X 10*3/uL Carbon Dioxide 18.4 L (21.6-31.8) mmol/L Anion Gap 12.60 H (4.00-12.00) mmol/L BUN 7.7 L (9.0-27.0) mg/dL BUN/Creatinine Ratio 9.62 L (12.00-20.00) Ratio Glucose 141 H (70-110) mg/dL Calcium 8.3 L (8.7-10.3) mg/dL Total Protein 5.2 L (6.2-8.2) g/dL Albumin 3.1 L (3.8-4.9) g/dL Albumin/Globulin Ratio 1.48 L (1.60-3.17) Ratio Microbiology - Last 24 Hours (Table) 04/14/25 22:05 Blood Culture - Preliminary Blood
--- NOTE | 2025-04-16 15:50 | P.PAINPG ---
Objective - Vital Signs Vital signs: Vital Signs Temp 98.2 F 04/16/25 13:47 Pulse 82 04/16/25 13:47 Resp 19 04/16/25 13:47 BP 130/84 04/16/25 13:47 Pulse Ox 93 L 04/16/25 13:47 FiO2 Intake & Output 04/15/25 04/16/25 04/16/25 18:59 06:59 18:59 Intake Total 100 Balance 100 Intake: Oral 100 Other: Voiding Method External Catheter External Catheter # Voids 4 # Bowel Movements 2 - Labs CBC & Chem 7: 04/16/25 02:23 04/16/25 02:23 Labs: Abnormal Lab Results - Last 24 Hours (Table) 04/16/25 04/16/25 Range/Units 02:23 02:23 RBC 3.57 L (4.10-5.20) X 10*6/uL Hgb 11.1 L (12.0-15.0) g/dL Hct 35.2 L (37.2-46.3) % MCV 98.6 H (80.0-97.0) FL MCHC 31.5 L (32.0-37.0) g/dL Lymphocytes # 0.75 L (0.90-5.00) X 10*3/uL Carbon Dioxide 18.4 L (21.6-31.8) mmol/L Anion Gap 12.60 H (4.00-12.00) mmol/L BUN 7.7 L (9.0-27.0) mg/dL BUN/Creatinine Ratio 9.62 L (12.00-20.00) Ratio Glucose 141 H (70-110) mg/dL Calcium 8.3 L (8.7-10.3) mg/dL Total Protein 5.2 L (6.2-8.2) g/dL Albumin 3.1 L (3.8-4.9) g/dL Albumin/Globulin Ratio 1.48 L (1.60-3.17) Ratio Microbiology - Last 24 Hours (Table) 04/14/25 22:05 Blood Culture - Preliminary Blood PQRS Measure Charge Sheet Comment: HISTORY OF PRESENT ILLNESS: A 89 yr old inpatient female as a referral from Dr Barry presents today w severe acute L hip pain secondary to bursitis and DJD for evaluation. Pt states pain level is provoked at 7 /10 in intensity, constant, localized in the L hip, predominantly axial, in character w occasional shooting pain towards the L knee. Pain is provoked by movement. Pain is alleviated by medications, repositioning and rest . She has had 1 LESI and 1 L shoulder injection this year. PMH: OA, GERD, Hyperlipidemia, IBS, OAB, Trigeminal Neuralgia, L Hip Bursitis, MDD/ Anxiety PSH: Cervical Disc Surgery, Bowel Resection w Ileostomy, Cholecystectomy, Hysterectomy, Pacemaker (2005), R Elbow Surgery, SH: Negative x3 FH: Daughter- Thyroid CA All: See list Medications include MS IR 4mg q4h prn, Tyl 650mg q6h prn REVIEW OF ORGAN SYSTEMS: CONSTITUTIONAL: No fevers or chills. No recent weight loss. NEUROLOGICAL: + numbness and tingling along the distal extremities. No seizure disorders or headaches. MUSCULOSKELETAL: + pain PSYCHIATRIC: Denies current depression or suicidal thoughts. Physical Examinations : Constitutional : Cooperative , not in acute distress . Neurologic : Cranial nerve II to XII intact. No focal catia rological deficits. Psychiatric : alert & oriented x 3. Matching mood & appropriate affect. Judgment & insight intact. Musculoskeletal : Cervical Spine Motor strength in the deltoid and bi ceps: Normal right side. Normal Left side Motor strength biceps and the wrist extensors: Normal right side . Normal left side Motor strength in the triceps muscle: Normal right side. Normal left side Deep tendon reflexes: Normal at the biceps. Normal at Brachioradialis. Normal at triceps Vertebral body tenderness to deep pal pation over Cervical facet loading test: positive bilaterally Spurling test: positive bilaterally Neck distraction test: positive bilaterally Regis sign: positive bilaterally Lumbar spine +L Trendelenburg Motor strength lower extremities ,thigh and legs 5/5 Right side , 5/5 Left side Deep tendon reflexes : Normal Knee Jerk. Normal Ankle Jerk Vertebral body tenderness over Calloway Test positive Lumbar facet Loading Test: positive Right / positive Left Range of motion of the lumbar spine Flexion 30 degrees, extension 10 degrees Straight Leg Raise test: Left/ Right positive at degrees Sunil test: positive right / positive left. Severe tenderness over the Sacroiliac joint on the Right / Left sides Gaenslen test: positive bilaterally Seated flexion test: positive bilaterally. Sacral spine : Severe tenderness over the Sacroiliac joint: right side / left side Range of motion: Flexion of the lumbar spine <60 degrees Range of motion: Extension of the lumbar spine <20 degrees Gaenslen's Test positive Sunil test: positive right side / left side Thigh Thrust Test Sacral Thrust Test Assessment/ Plan : L Hip Bursitis, L Hip DJD Recommendation of L bursa joint injection #1. Risks, benefits of procedure discussed and patient verbalized understanding. All questions answered. I have spent greater than 30 minutes on patient care today. Dr Robb was available by phone for the evaluation of this patient. The time was used to review the medical records including relevant urine studies and Prescription history (MAPs), review of the available imaging, evaluation and examination of the patient, coordination of care with the medical staff and if applicable re [facility] physicians, as well as creation of the medical record - Pain Location Back Non-Pharmacological Interventions: Distraction, Reduce Environmental Stimuli, Relaxation Technique Pharmacological Interventions: PRN Medication PQRS Narrative: Smoking Status Never smoker Blood Pressure [Right Arm] 130/84 Blood Pressure 96/58 Pain Intensity [Back] 9 Pain Intensity 9 Pain Scale Used Numeric (1 - 10) Scale Used Numeric (1 - 10) Home Medications: Ambulatory Orders Multivitamins, Thera [Multivitamin (formulary)] 1 tab PO DAILY@0800 06/29/14 clonazePAM [KlonoPIN] 0.5 mg PO BID@799,169909/16/19 Famotidine [Pepcid] 40 mg PO HS@199907/17/20 Atorvastatin [Lipitor] 20 mg PO HS@199905/29/22 Cholecalciferol [Vitamin D3 (25 Mcg = 1000 Iu)] 25 mcg PO BID@08,169905/29/22 Pantoprazole [Protonix] 40 mg PO DAILY@0800 05/29/22 carBAMazepine 200 mg PO BID@0800,169905/29/22 Acetaminophen Tab [Tylenol Tab] 1,000 mg PO HS@199904/15/25 Acetaminophen Tab [Tylenol Tab] 500 mg PO Q6HR 04/15/25 Calcium Carbonate [Calcium] 600 mg PO BID@0800,169904/15/25 Cetirizine HCl [Zyrtec] 10 mg PO HS@199904/15/25 Fluticasone Nasal [place] [Flonase Nasal [place]] 2 spr EA NOSTRIL HS@199904/15/25 Melatonin 3 mg PO HS@199904/15/25 Metamucil 4 In 1 Fiber Powder 2 tbsp PO DAILY@1300 04/15/25 Metoprolol Tartrate [Lopressor] 25 mg PO DAILY@79904/15/25 Mirabegron [Myrbetriq] 25 mg PO DAILY@79904/15/25 Nystatin 100,000 Unit/gm Powd [Mycostatin Powder] 1 applic TOPICAL BID@0800,169904/15/25 Rivaroxaban [Xarelto] 20 mg PO HS@169904/15/25 Venlafaxine HCl [Effexor] 75 mg PO BID@0800,169904/15/25 Controlled Substance Measures - Controlled Substance Measures Is patient prescribed a controlled substance at discharge?: No
[2025-04-16] MEDS: clonazePAM 0.5 MG TAB PO SCH (16:25)
[2025-04-16] MEDS: MORPHINE SULFATE 2 MG/ML SYRINGE IV PRN (16:25)
[2025-04-16] MEDS: CALCIUM CARBONATE 500 MG CHEWABLE PO SCH (16:25)
[2025-04-16] MEDS: CHOLECALCIFEROL 25 MCG (1000 IU) TABLET PO SCH (16:25)
[2025-04-16] MEDS: ACETAMINOPHEN TAB 500 MG TAB PO SCH ×2 (17:25→21:01)
[2025-04-16] MEDS: FAMOTIDINE 20 MG TAB PO SCH (21:01)
--- NOTE | 2025-04-17 11:13 | XR ---
EXAMINATION TYPE: XR chest 1V portable DATE OF EXAM: 04/17/2025 11:08 AM COMPARISON: 04/14/2025 CLINICAL INDICATION: Female, 89 years old with history of fever, TECHNIQUE: XR chest 1V portable view(s) obtained. FINDINGS: The heart size is normal. Pacemaker overlies left chest. The pulmonary vasculature is normal. Some atelectatic type changes may be at the left base. There is advanced degenerative change at the glenohumeral junction on the left with erosion of the gl enoid. Degenerative changes or adenopathy left humeral head. IMPRESSION: 1. Mild atelectasis left lower lobe. 2. Advanced degenerative joint changes left shoulder. [facility], , 04/17/2025 11:10 AM
--- NOTE | 2025-04-17 12:18 | P.DS ---
Providers Date of admission: 04/15/25 00:14 Expected date of discharge: 04/17/25 Attending physician: Nica Goldman MD Primary care physician: [facility] Course: 89 year old female with hyperlipidemia, osteoarthritis presented to the ED with back pain. Daughter reports long travel history from [place] to [place], apparently hurt her back during transport. No trauma. She does see pain management in [place] for back/bursa injections. Apparently she was lethargic and altered on admission. Vitals on admission T 100.5 F, [place] 93 bpm, RR 16, BP 148/104, SpO2 94% on room air. Chest x-ray shows underinflated lungs with 6 cm elevation of the right diaphragm, mild perihilar and bibasilar subsegmental atelectasis or edema exaggerated by technique, pacing device in the left with leads extending to the right side of the heart. Chest CT showed mild central vascular congestion and small amount of bibasilar subsegmental atelectasis and/or fibrosis, no focal consolidation, pneumothorax or pleural effusion. Abdomen pelvis CT scan shows bowel loops are nondilated, colon has been resected, right lower quadrant ileostomy, no pneumoperitoneum, free fluid or acute inflammatory changes, kidneys are unremarkable, no hydronephrosis or ureterolithiasis. Labs on admission show WBC 7.57, hemoglobin 13.1, platelet 174, PT 14.7, INR 1.4, APTT 32.3, D-dimer 1.9, sodium 130, potassium 4.5, creatinine 0.65, AST 67, ALT 72, ALP 136, troponin I <0.012. UA is unremarkable. Respiratory panel is negative. Admitted for further workup and management. Initially started on antibiotics for PNA. Procal was negative. Pain management consulted recommending L bursa joint injection. PT and OT evaluated recommending SNF. 04/17 Patient was seen and examined. Sleeping comfortably. Per SNF repeat pro- shelby, CXR and UA is ordered. Discharge Plan: Hopeful discharge to SNF if workup comes back negative. Her fever is likely related to atelectasis. Per daughter, she has been on Klonopin for many years. At this point, risks of discontinuing medication outweigh the benefits. Follow up with PCP within 1-2 days of discharge. General: non toxic, no distress, appears at stated age Derm: warm, dry Head: atraumatic, normocephalic, symmetric Eyes: EOMI, no lid lag, anicteric sclera Mouth: no lip lesion, mucus membranes moist Cardiovascular: good distal perfusion in all 4 extremities Lungs: breathing comfortably, no accessory muscle use Ext: no gross muscle atrophy, no edema, no contractures Neuro: no focal neuro deficits Psych: Alert, oriented, appropriate affect Discharge Diagnosis: Sciatica Acute metabolic encephalopathy Fever likely due to Atelectasis Elevated D-Dimer Hyperlipidemia History of permanent pacemaker implantation Urinary incontinence AFib Trigeminal neuralgia Vitamin D deficiency GERD Anxiety/depression This complex discharge took 35 minutes to complete. Patient Condition at Discharge: Stable Plan - Discharge Summary Discharge Rx Participant: Yes New Discharge Prescriptions: No Action Multivitamins, Thera [Multivitamin (formulary)] 1 tab PO DAILY@0800 clonazePAM [KlonoPIN] 0.5 mg PO BID@0800,1700 Famotidine [Pepcid] 40 mg PO HS@2000 Atorvastatin [Lipitor] 20 mg PO HS@2000 carBAMazepine 200 mg PO BID@0800,1700 Pantoprazole [Protonix] 40 mg PO DAILY@0800 Venlafaxine HCl [Effexor] 75 mg PO BID@0800,1700 Nystatin 100,000 Unit/gm Powd [Mycostatin Powder] 1 applic TOPICAL BID@0800,1700 Cetirizine HCl [Zyrtec] 10 mg PO HS@2000 Calcium Carbonate [Calcium] 600 mg PO BID@0800,1700 Mirabegron [Myrbetriq] 25 mg PO DAILY@0800 Metamucil 4 In 1 Fiber Powder 2 tbsp PO DAILY@1300 Fluticasone Nasal [place] [Flonase Nasal [place]] 2 spr EA NOSTRIL HS@2000 Acetaminophen Tab [Tylenol Tab] 1,000 mg PO HS@2000 Cholecalciferol [Vitamin D3 (25 Mcg = 1000 Iu)] 25 mcg PO BID@0800,1700 Acetaminophen Tab [Tylenol Tab] 500 mg PO Q6HR Rivaroxaban [Xarelto] 20 mg PO HS@1700 Metoprolol Tartrate [Lopressor] 25 mg PO DAILY@0800 Melatonin 3 mg PO HS@2000 Discharge Medication List Multivitamins, Thera [Multivitamin (formulary)] 1 tab PO DAILY@0800 06/29/14 [History] clonazePAM [KlonoPIN] 0.5 mg PO BID@0800,1700 09/16/19 [History] Famotidine [Pepcid] 40 mg PO HS@199907/17/20 [History] Atorvastatin [Lipitor] 20 mg PO HS@199905/29/22 [History] Cholecalciferol [Vitamin D3 (25 Mcg = 1000 Iu)] 25 mcg PO BID@0800,1700 05/29/22 [History] Pantoprazole [Protonix] 40 mg PO DAILY@0800 05/29/22 [History] carBAMazepine 200 mg PO BID@0800,1700 05/29/22 [History] Acetaminophen Tab [Tylenol Tab] 1,000 mg PO HS@199904/15/25 [History] Acetaminophen Tab [Tylenol Tab] 500 mg PO Q6HR 04/15/25 [History] Calcium Carbonate [Calcium] 600 mg PO BID@0800,17004/15/25 [History] Cetirizine HCl [Zyrtec] 10 mg PO HS@199904/15/25 [History] Fluticasone Nasal [place] [Flonase Nasal [place]] 2 spr EA NOSTRIL HS@199904/15/25 [History] Melatonin 3 mg PO HS@199904/15/25 [History] Metamucil 4 In 1 Fiber Powder 2 tbsp PO DAILY@1300 04/15/25 [History] Metoprolol Tartrate [Lopressor] 25 mg PO DAILY@0804/15/25 [History] Mirabegron [Myrbetriq] 25 mg PO DAILY@0804/15/25 [History] Nystatin 100,000 Unit/gm Powd [Mycostatin Powder] 1 applic TOPICAL BID@0800,1700 04/15/25 [History] Rivaroxaban [Xarelto] 20 mg PO HS@169904/15/25 [History] Venlafaxine HCl [Effexor] 75 mg PO BID@0800,17004/15/25 [History] Follow up Appointment(s)/Referral(s): Ramirez Resendiz MD [Primary Care Provider] - 1-2 days
[2025-04-17 15:57] LABS: Appearance,Urine Clear (Clear); Bacteria,Urine Rare /hpf; Bilirubin,Urine Negative (Negative); Blood,Urine Negative (Negative); Color,Urine Colorless; Glucose,Urine (UA) Negative (Negative); Ketones,Urine Negative (Negative); Leukocyte Esterase,Urine Small (Negative); Nitrite,Urine Negative (Negative); Protein,Urine Negative (Negative); RBC,Urine 1 /hpf (0-5); Specific Gravity,Urine 1.012 (1.001-1.035); Urobilinogen,Urine <2.0 mg/dL (<2.0); WBC,Urine 10 /hpf (0-5)
--- NOTE | 2025-04-18 11:34 | P.DS ---
Providers Date of admission: 04/15/25 00:14 Expected date of discharge: 04/18/25 Attending physician: Nica Goldman MD Primary care physician: [facility] Course: 89 year old female with hyperlipidemia, osteoarthritis presented to the ED with back pain. Daughter reports long travel history from [place] to [place], apparently hurt her back during transport. No trauma. She does see pain management in [place] for back/bursa injections. Apparently she was lethargic and altered on admission. Vitals on admission T 100.5 F, [place] 93 bpm, RR 16, BP 148/104, SpO2 94% on room air. Chest x-ray shows underinflated lungs with 6 cm elevation of the right diaphragm, mild perihilar and bibasilar subsegmental atelectasis or edema exaggerated by technique, pacing device in the left with leads extending to the right side of the heart. Chest CT showed mild central vascular congestion and small amount of bibasilar subsegmental atelectasis and/or fibrosis, no focal consolidation, pneumothorax or pleural effusion. Abdomen pelvis CT scan shows bowel loops are nondilated, colon has been resected, right lower quadrant ileostomy, no pneumoperitoneum, free fluid or acute inflammatory changes, kidneys are unremarkable, no hydronephrosis or ureterolithiasis. Labs on admission show WBC 7.57, hemoglobin 13.1, platelet 174, PT 14.7, INR 1.4, APTT 32.3, D-dimer 1.9, sodium 130, potassium 4.5, creatinine 0.65, AST 67, ALT 72, ALP 136, troponin I <0.012. UA is unremarkable. Respiratory panel is negative. Admitted for further workup and management. Initially started on antibiotics for PNA. Procal was negative. Pain management consulted recommending L bursa joint injection. PT and OT evaluated recommending SNF. 04/17 Patient was seen and examined. Sleeping comfortably. Per SNF repeat pro- shelby, CXR and UA is ordered. 04/18 Patient was seen and examined. Reports left hip pain. Plans for steroid injection to bursa today. Repeat pro-shelby negative. CXR showing atelectasis. UA neg for LE or nitrite. Discharge Plan: Her fever is likely related to atelectasis. Per daughter, she has been on Klonopin for many years. At this point, risks of discontinuing medication outweigh the benefits. Follow up with PCP within 1-2 days of dis charge. General: non toxic, no distress, appears at stated age Derm: warm, dry Head: atraumatic, normocephalic, symmetric Eyes: EOMI, no lid lag, anicteric sclera Mouth: no lip lesion, mucus membranes moist Cardiovascular: good distal perfusion in all 4 extremities Lungs: breathing comfortably, no accessory muscle use Ext: no gross muscle atrophy, no edema, no contractures Neuro: no focal neuro deficits Psych: Alert, oriented, appropriate affect Discharge Diagnosis: Sciatica Acute metabolic encephalopathy Fever likely due to Atelectasis Elevated D-Dimer Hyperlipidemia History of permanent pacemaker implantation Urinary incontinence AFib Trigeminal neuralgia Vitamin D deficiency GERD Anxiety/depression This complex discharge took 35 minutes to complete. Patient Condition at Discharge: Stable Plan - Discharge Summary Discharge Rx Participant: Yes New Discharge Prescriptions: New clonazePAM [KlonoPIN] 0.5 mg PO BID@0800,1700 #6 tab Continue Multivitamins, Thera [Multivitamin (formulary)] 1 tab PO DAILY@0800 clonazePAM [KlonoPIN] 0.5 mg PO BID@0800,1700 Famotidine [Pepcid] 40 mg PO HS@2000 Atorvastatin [Lipitor] 20 mg PO HS@2000 carBAMazepine 200 mg PO BID@0800,1700 Pantoprazole [Protonix] 40 mg PO DAILY@0800 Venlafaxine HCl [Effexor] 75 mg PO BID@0800,1700 Nystatin 100,000 Unit/gm Powd [Mycostatin Powder] 1 applic TOPICAL BID@0800,1700 Cetirizine HCl [Zyrtec] 10 mg PO HS@2000 Calcium Carbonate [Calcium] 600 mg PO BID@0800,1700 Mirabegron [Myrbetriq] 25 mg PO DAILY@0800 Metamucil 4 In 1 Fiber Powder 2 tbsp PO DAILY@1300 Fluticasone Nasal [place] [Flonase Nasal [place]] 2 spr EA NOSTRIL HS@2000 Acetaminophen Tab [Tylenol] 1,000 mg PO HS@2000 Cholecalciferol [Vitamin D3 (25 Mcg = 1000 Iu)] 25 mcg PO BID@0800,1700 Acetaminophen Tab [Tylenol] 500 mg PO Q6HR Rivaroxaban [Xarelto] 20 mg PO HS@1700 Metoprolol Tartrate [Lopressor] 25 mg PO DAILY@0800 Melatonin 3 mg PO HS@1999 Discharge Medication List Multivitamins, Thera [Multivitamin (formulary)] 1 tab PO DAILY@0800 06/29/14 [History] clonazePAM [KlonoPIN] 0.5 mg PO BID@0800,1700 09/16/19 [History] Famotidine [Pepcid] 40 mg PO HS@199907/17/20 [History] Atorvastatin [Lipitor] 20 mg PO HS@199905/29/22 [History] Cholecalciferol [Vitamin D3 (25 Mcg = 1000 Iu)] 25 mcg PO BID@0800,1700 05/29/22 [History] Pantoprazole [Protonix] 40 mg PO DAILY@0800 05/29/22 [History] carBAMazepine 200 mg PO BID@0800,1700 05/29/22 [History] Acetaminophen Tab [Tylenol] 1,000 mg PO HS@199904/15/25 [History] Acetaminophen Tab [Tylenol] 500 mg PO Q6HR 04/15/25 [History] Calcium Carbonate [Calcium] 600 mg PO BID@0800,169904/15/25 [History] Cetirizine HCl [Zyrtec] 10 mg PO HS@199904/15/25 [History] Fluticasone Nasal [place] [Flonase Nasal [place]] 2 spr EA NOSTRIL HS@199904/15/25 [History] Melatonin 3 mg PO HS@199904/15/25 [History] Metamucil 4 In 1 Fiber Powder 2 tbsp PO DAILY@1300 04/15/25 [History] Metoprolol Tartrate [Lopressor] 25 mg PO DAILY@0804/15/25 [History] Mirabegron [Myrbetriq] 25 mg PO DAILY@0804/15/25 [History] Nystatin 100,000 Unit/gm Powd [Mycostatin Powder] 1 applic TOPICAL BID@0800,1700 04/15/25 [History] Rivaroxaban [Xarelto] 20 mg PO HS@169904/15/25 [History] Venlafaxine HCl [Effexor] 75 mg PO BID@0800,1700 04/15/25 [History] clonazePAM [KlonoPIN] 0.5 mg PO BID@0800,1700 #6 tab 04/17/25 [Rx] Follow up Appointment(s)/Referral(s): Ramirez Resendiz MD [Primary Care Provider] - 1-2 days Activity/Diet/Wound Care/Special Instructions: Regular diet Activity as tolerated. Discharge Disposition: HOME SELF-CARE
[2025-04-19 02:54] VITALS: TEMP 98.6
[2025-04-19] MEDS: ONDANSETRON 4 MG/2 ML VIAL IVP PRN (08:22)
[2025-04-19 08:43] VITALS: BP 161/93; PULSE 74; RESP 18
[2025-04-19] MEDS ORDERED: methylPREDNISolone ACETATE 40 MG/ML 1 ML VIAL ONE (11:32)
[2025-04-19] MEDS ORDERED: ROPIVACAINE 5 MG/ML 30 ML VIAL ONE (11:32)
--- NOTE | 2025-04-19 11:41 | P.PCN ---
Date of Procedure: 04/19/25 Procedure(s) Performed: Pre- and Post-operative Diagnosis: Left-sided Trochanteric Bursitis Procedure: Left Greater Trochanteric Bursa injection under fluoroscopic guidance Anesthesia: none Complications: none Indications for Procedure: Patient had a history of left greater trochanteric bursitis. Tried conservative therapy with minimal response. Came here for intervention procedure. Procedure and Findings: The patient was seen and examined. The written informed consent was obtained after explaining the risks, benefits and alternatives of the procedure to the patient. Patient agreed to proceed for the procedure signed the informed consent. The patient was brought to the procedure room and was placed in supine position on the operating table. The anesthesia was started as mentioned above and monitoring was done with noninvasive blood pressure cuff, EKG and pulse oximetry. The skin preparation was done with ChloraPrep 1, and draping was done in usual sterile fashion. Sterile technique was observed throughout the procedure. Using fluoroscope in the AP view, the greater trochanter was identified. The middle of the greater trochanter was targeted for needle placement. 2 ml of 0.5% ropivacaine was injected with a 25 gauge needle to achieve adequate local anesthesia of the skin and subcutaneous tissue. then 23 gauge 3.5 inch needle was introduced and advanced into the target area under direct fluoroscopic guidance. A bony contact was felt and the needle was withdrawn for about two millimeters. A negative aspiration was confirmed. then total of 5ml solution containing depo-medrol 40 mg and 4 ml of 0.5% preservative-free ropivacaine was injected slowly. The needle was removed intact, area was cleaned and bandage was applied. The patient tolerated the procedure very well. The patient will be followed up with Pain Clinic within 3 weeks
--- NOTE | 2025-04-19 11:51 | FL ---
Fluoroscopy INDICATION: Pain FINDINGS: Fluoroscopy time: 6 seconds. Total dose area product (DAP) in uGy*m?, mGy*cm? (or similar): 0.01721 Images obtained: 2. Images document the procedure. IMPRESSION: 1. Documentation of fluoroscopy. [facility], , 04/19/2025 11:49 AM
[2025-04-19] MEDS: PSYLLIUM HUSK 100% 6 GM PACKET PO SCH (12:22)
--- NOTE | 2025-04-19 15:15 | P.DS ---
Providers Date of admission: 04/15/25 00:14 Expected date of discharge: 04/19/25 Attending physician: Nica Goldman MD Primary care physician: [facility] Course: 89 year old female with hyperlipidemia, osteoarthritis presented to the ED with back pain. Daughter reports long travel history from [place] to [place], apparently hurt her back during transport. No trauma. She does see pain management in [place] for back/bursa injections. Apparently she was lethargic and altered on admission. Vitals on admission T 100.5 F, [place] 93 bpm, RR 16, BP 148/104, SpO2 94% on room air. Chest x-ray shows underinflated lungs with 6 cm elevation of the right diaphragm, mild perihilar and bibasilar subsegmental atelectasis or edema exaggerated by technique, pacing device in the left with leads extending to the right side of the heart. Chest CT showed mild central vascular congestion and small amount of bibasilar subsegmental atelectasis and/or fibrosis, no focal consolidation, pneumothorax or pleural effusion. Abdomen pelvis CT scan shows bowel loops are nondilated, colon has been resected, right lower quadrant ileostomy, no pneumoperitoneum, free fluid or acute inflammatory changes, kidneys are unremarkable, no hydronephrosis or ureterolithiasis. Labs on admission show WBC 7.57, hemoglobin 13.1, platelet 174, PT 14.7, INR 1.4, APTT 32.3, D-dimer 1.9, sodium 130, potassium 4.5, creatinine 0.65, AST 67, ALT 72, ALP 136, troponin I <0.012. UA is unremarkable. Respiratory panel is negative. Admitted for further workup and management. Initially started on antibiotics for PNA. Procal was negative. Pain management consulted recommending L bursa joint injection. PT and OT evaluated recommending SNF. 04/17 Patient was seen and examined. Sleeping comfortably. Per SNF repeat pro- shelby, CXR and UA is ordered. 04/18 Patient was seen and examined. Reports left hip pain. Plans for steroid injection to bursa today. Repeat pro-shelby negative. CXR showing atelectasis. UA neg for LE or nitrite. 04/19 Patient was seen and examined. Reports left hip pain. Plans for steroid injection to bursa today. Discharge Plan: Her fever is likely related to atelectasis. Per daughter, she has been on Klonopin for many years. At this point, risks of discontinuing medication outweigh the benefits. Follow up with PCP within 1-2 days of discharge. General: non toxic, no distress, appears at stated age Derm: warm, dry Head: atraumatic, normocephalic, symmetric Eyes: EOMI, no lid lag, anicteric sclera Mouth: no lip lesion, mucus membranes moist Cardiovascular: good distal perfusion in all 4 extremities Lungs: breathing comfortably, no accessory muscle use Ext: no gross muscle atrophy, no edema, no contractures Neuro: no focal neuro deficits Psych: Alert, oriented, appropriate affect Discharge Diagnosis: Sciatica Acute metabolic encephalopathy Fever likely due to Atelectasis Elevated D-Dimer Hyperlipidemia History of permanent pacemaker implantation Urinary incontinence AFib Trigeminal neuralgia Vitamin D deficiency GERD Anxiety/depression This complex discharge took 35 minutes to complete. Patient Condition at Discharge: Stable Plan - Discharge Summary Discharge Rx Participant: Yes New Discharge Prescriptions: New clonazePAM [KlonoPIN] 0.5 mg PO BID@0800,1700 #6 tab Continue Multivitamins, Thera [Multivitamin (formulary)] 1 tab PO DAILY@0800 clonazePAM [KlonoPIN] 0.5 mg PO BID@0800,1700 Famotidine [Pepcid] 40 mg PO HS@2000 Atorvastatin [Lipitor] 20 mg PO HS@2000 carBAMazepine 200 mg PO BID@0800,1700 Pantoprazole [Protonix] 40 mg PO DAILY@0800 Venlafaxine HCl [Effexor] 75 mg PO BID@0800,1700 Nystatin 100,000 Unit/gm Powd [Mycostatin Powder] 1 applic TOPICAL BID@0 800,1700 Cetirizine HCl [Zyrtec] 10 mg PO HS@2000 Calcium Carbonate [Calcium] 600 mg PO BID@0800,1700 Mirabegron [Myrbetriq] 25 mg PO DAILY@0800 Metamucil 4 In 1 Fiber Powder 2 tbsp PO DAILY@1300 Fluticasone Nasal [place] [Flonase Nasal [place]] 2 spr EA NOSTRIL HS@2000 Acetaminophen Tab [Tylenol] 1,000 mg PO HS@2000 Cholecalciferol [Vitamin D3 (25 Mcg = 1000 Iu)] 25 mcg PO BID@0800,1700 Acetaminophen Tab [Tylenol] 500 mg PO Q6HR Rivaroxaban [Xarelto] 20 mg PO HS@1700 Metoprolol Tartrate [Lopressor] 25 mg PO DAILY@0800 Melatonin 3 mg PO HS@1999 Discharge Medication List Multivitamins, Thera [Multivitamin (formulary)] 1 tab PO DAILY@0800 06/29/14 [History] clonazePAM [KlonoPIN] 0.5 mg PO BID@0800,1700 09/16/19 [History] Famotidine [Pepcid] 40 mg PO HS@199907/17/20 [History] Atorvastatin [Lipitor] 20 mg PO HS@199905/29/22 [History] Cholecalciferol [Vitamin D3 (25 Mcg = 1000 Iu)] 25 mcg PO BID@0800,1700 05/29/22 [History] Pantoprazole [Protonix] 40 mg PO DAILY@0800 05/29/22 [History] carBAMazepine 200 mg PO BID@0800,1700 05/29/22 [History] Acetaminophen Tab [Tylenol] 1,000 mg PO HS@199904/15/25 [History] Acetaminophen Tab [Tylenol] 500 mg PO Q6HR 04/15/25 [History] Calcium Carbonate [Calcium] 600 mg PO BID@0800,169904/15/25 [History] Cetirizine HCl [Zyrtec] 10 mg PO HS@199904/15/25 [History] Fluticasone Nasal [place] [Flonase Nasal [place]] 2 spr EA NOSTRIL HS@199904/15/25 [History] Melatonin 3 mg PO HS@199904/15/25 [History] Metamucil 4 In 1 Fiber Powder 2 tbsp PO DAILY@1300 04/15/25 [History] Metoprolol Tartrate [Lopressor] 25 mg PO DAILY@0804/15/25 [History] Mirabegron [Myrbetriq] 25 mg PO DAILY@0804/15/25 [History] Nystatin 100,000 Unit/gm Powd [Mycostatin Powder] 1 applic TOPICAL BID@0800,0 04/15/25 [History] Rivaroxaban [Xarelto] 20 mg PO HS@169904/15/25 [History] Venlafaxine HCl [Effexor] 75 mg PO BID@0800,169904/15/25 [History] clonazePAM [KlonoPIN] 0.5 mg PO BID@0800,1700 #6 tab 04/17/25 [Rx] Follow up Appointment(s)/Referral(s): [facility] [NON-STAFF] - 1 Week Ramirez Resendiz MD [Primary Care Provider] - 1-2 days ([facility] please call for follow- up appointment.) Activity/Diet/Wound Care/Special Instructions: Regular diet Activity as tolerated. Hold Xarelto for 24 hours post hip injection - resume on the evening of 04/20/25. Discharge/Stand Alone Forms: [facility] Instructions Discharge Disposition: HOME SELF-CARE
== END 2025-04-19 13:39 | disposition home or self-care (01) ==
LOC: EC 21:24 → INTOOBSV 04-15 00:14 → 4SSUR 04-15 00:14 → OBSVTOIN 04-15 00:14 → 4SSUR 04-15 01:44
PROVIDERS: ADMIT Internal Medicine; ATTEND Internal Medicine
DX: M70.62 Trochanteric bursitis, left hip (principal); M16.12 Unilateral primary osteoarthritis, left hip; G93.41 Metabolic encephalopathy; M54.30 Sciatica, unspecified side; R50.9 Fever, unspecified; R79.89 Other specified abnormal findings of blood chemistry; R11.2 Nausea with vomiting, unspecified; E87.1 Hypo-osmolality and hyponatremia; D68.9 Coagulation defect, unspecified; R74.01 Elevation of levels of liver transaminase levels; E78.5 Hyperlipidemia, unspecified; R32 Unspecified urinary incontinence; R60.0 Localized edema; G50.0 Trigeminal neuralgia; E55.9 Vitamin D deficiency, unspecified; K21.9 Gastro-esophageal reflux disease without esophagitis; J18.9 Pneumonia, unspecified organism; M54.6 Pain in thoracic spine; R53.1 Weakness; I50.9 Heart failure, unspecified; F41.9 Anxiety disorder, unspecified; F32.A Depression, unspecified; I48.91 Unspecified atrial fibrillation; Z11.52 Encounter for screening for COVID-19; Z95.0 Presence of cardiac pacemaker; Z79.01 Long term (current) use of anticoagulants; Z79.51 Long term (current) use of inhaled steroids; Z79.899 Other long term (current) drug therapy
CPT/HCPCS: 96376 ×4; 96361; 96366 ×5; 96367; 96375 ×3; 51701; 96365; 99285; 36415; 94760; 93005; 97530 ×2; 97162; 97166; 85379; 83880; 80053 ×2; 80048; 83605; 83735 ×2; 84100 ×2; 84484; 85025 ×2; 85610; 85730; 81003; 81001; 87040; 84145 ×2; 87636; 71045; 71046; 76705; 93970; 71250; 74176; 20610; 77002; G0378 ×5; J2270 ×5; J2405; J0456 ×3; J0696 ×4; J2795; J1885; J1010

== ENCOUNTER → 2025-04-25 | Outpatient (CLI) | payer MEDICARE ==
[2025-04-25 11:40] VITALS: BP 110/76; PULSE 61; RESP 21
--- NOTE | 2025-04-25 16:12 | P.PAINPG ---
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 Pt states she experienced 0 % pain relief s/p procedure. Pt states pain level is provoked at 9 /10 in intensity, constant, localized in the lumbosacral spine, predominantly axial, sore in character w occasional shooting pain towards the buttocks, L> R. Pain is provoked by sitting for periods > 5 min. Pain is alleviated by injections, physician guided stretches every morning since Jan 2025, medications, repositioning and rest . Interventional procedures include Pacemaker (2005), LESI x1 (2024), L shoulder x1 (2024), L bursa joint injection x1 (04/18), Cervical Disc Surgery Medications include Tyl, Ibu REVIEW OF ORGAN SYSTEMS: CONSTITUTIONAL: No fevers or chills. No recent weight loss. NEUROLOGICAL: + numbness and tingling along the distal extremities. No seizure disorders or headaches. MUSCULOSKELETAL: + pain PSYCHIATRIC: Denies current depression or suicidal thoughts. Physical Examinations : Constitutional : Cooperative , not in acute distress . Neurologic : Cranial nerve II to XII intact. No focal neurological deficits. Psychiatric : alert & oriented x 3. Matching mood & appropriate affect. Judgment & insight intact. Musculoskeletal : Cervical Spine Motor strength in the deltoid and biceps: Normal right side. Normal Left side Motor strength biceps and the wrist extensors: Normal right side . Normal left side Motor strength in the triceps muscle: Normal right side. Normal left side Deep tendon reflexes: Normal at the biceps. Normal at Brachioradialis. Normal at triceps Vertebral body tenderness to deep palpation over Cervical facet loading test: positive bilaterally Spurling test: positive bilaterally Neck distraction test: positive bilaterally Regis sign: positive bilaterally Lumbar spine +L Trendelenburg Motor strength lower extremities ,thigh and legs 5/5 Right side , 5/5 Left side Deep tendon reflexes : Normal Knee Jerk. Normal Ankle Jerk Vertebral body tenderness over Calloway Test positive Lumbar facet Loading Test: positive Right / positive Left Range of motion of the lumbar spine Flexion 30 degrees, extension 10 degrees Straight Leg Raise test: Left/ Right positive at degrees Sunil test: positive right / positive left. Severe tenderness over the Sacroiliac joint on the Right / Left sides Gaenslen test: positive bilaterally Seated flexion test: positive bilaterally. Sacral spine : Severe tenderness over the Sacroiliac joint: right side / left side Range of motion: Flexion of the lumbar spine <60 degrees Range of motion: Extension of the lumbar spine <20 degrees Gaenslen's Test positive L> R Sunil test: positive right side < left side Thigh Thrust Test Sacral Thrust Test BL positive Assessment/ Plan : L Hip Bursitis, L Hip DJD, BL Sacroiliitis Recommendation of BL SI injection #1. Risks, benefits of procedure discussed and patient verbalized understanding. All questions answered. I have spent greater than 30 minutes on patient care today. Dr Robb was available by phone for the evaluation of this patient. The time was used to review the medical records including relevant urine studies and Prescription history (MAPs), review of the available imaging, evaluation and examination of the patient, coordination of care with the medical staff and if applicable referring physicians, as well as creation of the medical record - Pain Location Left Hip Pharmacological Interventions: Medication PQRS Narrative: Smoking Status Never smoker Home Medications: Ambulatory Orders Multivitamins, Thera [Multivitamin (formulary)] 1 tab PO DAILY@0800 06/29/14 clonazePAM [KlonoPIN] 0.5 mg PO BID@0800,169909/16/19 Famotidine [Pepcid] 40 mg PO HS@199907/17/20 Atorvastatin [Lipitor] 20 mg PO HS@199905/29/22 Cholecalciferol [Vitamin D3 (25 Mcg = 1000 Iu)] 25 mcg PO BID@0800,169905/29/22 Pantoprazole [Protonix] 40 mg PO DAILY@0800 05/29/22 carBAMazepine 200 mg PO BID@0800,169905/29/22 Acetaminophen Tab [Tylenol] 1,000 mg PO HS@199904/15/25 Acetaminophen Tab [Tylenol] 500 mg PO Q6HR 04/15/25 Calcium Carbonate [Calcium] 600 mg PO BID@0800,169904/15/25 Cetirizine HCl [Zyrtec] 10 mg PO HS@199904/15/25 Fluticasone Nasal [place] [Flonase Nasal [place]] 2 spr EA NOSTRIL HS@199904/15/25 Melatonin 3 mg PO HS@199904/15/25 Metamucil 4 In 1 Fiber Powder 2 tbsp PO DAILY@1300 04/15/25 Metoprolol Tartrate [Lopressor] 25 mg PO DAILY@0804/15/25 Mirabegron [Myrbetriq] 25 mg PO DAILY@0804/15/25 Nystatin 100,000 Unit/gm Powd [Mycostatin Powder] 1 applic TOPICAL BID@0800,1700 04/15/25 Rivaroxaban [Xarelto] 20 mg PO HS@169904/15/25 Venlafaxine HCl [Effexor] 75 mg PO BID@0800,169904/15/25 clonazePAM [KlonoPIN] 0.5 mg PO BID@0800,1700 #6 tab 04/17/25 Controlled Substance Measures - Controlled Substance Measures Is patient prescribed a controlled substance at discharge?: No
== END ==
LOC: PNWHC3 11:20
PROVIDERS: ATTEND Specialist
DX: M70.72 Other bursitis of hip, left hip (principal); M46.1 Sacroiliitis, not elsewhere classified; M16.12 Unilateral primary osteoarthritis, left hip
CPT/HCPCS: 99212

== ENCOUNTER 2025-05-01 10:53 | Day surgery (SDC) | payer MEDICARE ==
[2025-05-01 11:23] VITALS: TEMP 97
[2025-05-01] MEDS ORDERED: ROPIVACAINE 5 MG/ML 30 ML VIAL ONE (11:41)
[2025-05-01] MEDS ORDERED: TRIAMCINOLONE ACETONIDE 40 MG/ML 1 ML VIAL ONE (11:41)
--- NOTE | 2025-05-01 11:49 | P.PCN ---
Date of Procedure: 05/01/25 Surgeon: Vida Johnson Description of Procedure: Pre- and Post-operative Diagnosis: Bilateral sacroiliitis, bilateral sacroiliac joint dysfunction Procedure: Bilateral sacroiliac Joint steroid injection under biplanar fluoroscopy Surgeon: Vida Johnson MD Anesthesia: Local only: 1% Lidocaine Complications: none Estimated blood loss: None Specimen removed: None Fluoroscopic image: Saved to patient electronic medical records. Procedure and Findings: The patient was seen and examined in the holding area. The written informed consent was obtained after explaining the risks, benefits and alternatives of the procedure to the patient. The patient was brought to the procedure room and was placed in the prone position on the operating room table. A pillow was placed under the lower abdomen. The anesthesia was started as mentioned above and monitoring was done with noninvasive blood pressure cuff, EKG and pulse oximetry. The skin preparation was done with ChloraPrep, and draping was done in usual sterile fashion. Sterile technique was observed throughout the procedure. The right sacroiliac joint was identified under fluoroscopy then the anterior and posterior joint lines were aligned by tilting the C-arm to the contralateral side and inferior one third of this joint line was the target of this injection. I used 25-gauge 3-1/2 inch Quincke spinal needle to go through the skin after localizing it with lidocaine 1% and into the sacroiliac joint under fluoroscopic guidance. I then injected Kenalog 20 mg +1.5 mL of Marcaine 0.5% to a total volume of 2.5 mL. Then the left side was done in the same manner using 20 mg of Kenalog and 1.5 mL of Marcaine 0.5%. patient tolerated the procedure well. Pressure was held on the sacroiliac joints for few minutes after removing the needles due to the patient's treatment with Xarelto. Patient then was transferred to PACU in stable condition.
--- NOTE | 2025-05-01 12:00 | FL ---
EXAMINATION TYPE: FL guided pain mgmt statistic Intraoperative/procedural fluoroscopic services were provided. CLINICAL INDICATION:Female, 89 years old with history of bilateral SI joint injection; , [facility] FINDINGS: Fluoroscopic images demonstrating bilateral SI joint injection. No radiographic evidence for complica tion. Total fluoroscopy time is 10.1 seconds. DAP: [id number] mGym2 Please see the operative/procedural note for further details. [facility], , 05/01/2025 11:58 AM
[2025-05-01 12:01] VITALS: RESP 16
[2025-05-01 12:13] VITALS: BP 135/78; PULSE 55
== END 2025-05-01 12:42 | disposition home or self-care (01) ==
LOC: ORPAIN 10:53
PROVIDERS: ATTEND Anesthesiology
DX: M46.1 Sacroiliitis, not elsewhere classified (principal); M53.3 Sacrococcygeal disorders, not elsewhere classified; I48.91 Unspecified atrial fibrillation; Z79.01 Long term (current) use of anticoagulants
CPT/HCPCS: 27096; J3301; J2795; G0260

== ENCOUNTER → 2025-05-23 | Outpatient (CLI) | payer MEDICARE ==
[2025-05-23 13:18] VITALS: BP 143/90; PULSE 84; RESP 16; TEMP 97.9
--- NOTE | 2025-05-23 14:21 | P.PAINPG ---
PQRS Measure Charge Sheet Comment: HISTORY OF PRESENT ILLNESS: A 89 yr old wheelchair bound female w daughter at side presents today w severe and chronic LBP > 1 yr secondary to radiculopathy, spondylosis, facet arthropathy without myelopathy, BL Sacroiliitis, L hip bursitis, L hip DJD for evaluation s/ BL SI injection #1. Pt states she experienced 80 % pain relief x 3 wks s/p procedure. Pt states pain level is provoked at 9 /10 in intensity, constant, localized in the lumbosacral spine, predominantly axial, sore in character w occasional shooting pain towards the L hip, buttock, knee and calf. Pain is provoked by sitting for periods > 5 min. Pain is alleviated by injections, physician guided stretches every morning since Jan 2025, m edications, repositioning and rest . Interventional procedures include Pacemaker (2005), LESI x1 (2024), L shoulder x1 (2024), L bursa joint injection x1 (04/18), Cervical Disc Surgery, BL SI x1 (05/18) Medications include Tyl, Ibu REVIEW OF ORGAN SYSTEMS: CONSTITUTIONAL: No fevers or chills. No recent weight loss. NEUROLOGICAL: + numbness and tingling along the distal extremities. No seizure disorders or headaches. MUSCULOSKELETAL: + pain PSYCHIATRIC: Denies current depression or suicidal thoughts. Physical Examinations : Constitutional : Cooperative , not in acute distress . Neurologic : Cranial nerve II to XII intact. No focal neurological deficits. Psychiatric : alert & oriented x 3. Matching mood & appropriate affect. Judgment & insight intact. Musculoskeletal : Cervical Spine Motor strength in the deltoid and biceps: Normal right side. Normal Left side Motor strength biceps and the wrist extensors: Normal right side . Normal left side Motor strength in the triceps muscle: Normal right side. Normal left side Deep tendon reflexes: Normal at the biceps. Normal at Brachioradialis. Normal at triceps Vertebral body tenderness to deep palpation over Cervical facet loading test: positive bilaterally Spurling test: positive bilaterally Neck distraction test: positive bilaterally Regis sign: positive bilaterally Lumbar spine +L Trendelenburg Motor strength lower extremities ,thigh and legs 5/5 Right side , 5/5 Left side Deep tendon reflexes : Normal Knee Jerk. Normal Ankle Jerk Vertebral body tenderness over L5 Calloway Test positive Lumbar facet Loading Test: positive Right / positive Left Range of motion of the lumbar spine Flexion 30 degrees, extension 10 degrees Straight Leg Raise test: Left/ Right positive at <30 degrees Sunil test: positive right / positive left. Severe tenderness over the Sacroiliac joint on the Right / Left sides Gaenslen test: positive bilaterally Seated flexion test: positive bilaterally. Sacral spine : Severe tenderness over the Sacroiliac joint: right side / left side Range of motion: Flexion of the lumbar spine <60 degrees Range of motion: Extension of the lumbar spine <20 degrees Gaenslen's Test positive L> R Sunil test: positive right side < left side Thigh Thrust Test Sacral Thrust Test BL positive Assessment/ Plan : L Hip Bursitis, L Hip DJD, BL Sacroiliitis Recommendation of L TFESI L4-L5, L5-S1 #1. TENS unit use and PT integrated w massage M54.16 recommended. Risks, benefits of procedure discussed and patient verbalized understanding. Protocol for discontinuation/ continuation of me dications olga procedure discussed. All questions answered. I have spent greater than 30 minutes on patient care today. Dr Robb was available by phone for the evaluation of this patient. The time was used to review the medical records including relevant urine studies and Prescription history (MAPs), review of the available imaging, evaluation and examination of the patient, coordination of care with the medical staff and if applicable referring physicians, as well as creation of the medical record - Pain Location Bilateral Lower Back Non-Pharmacological Interventions: Heat, Home Exercise, Inactivity, Physical Therapy, Position/Reposition, Sitting, Stretching Pharmacological Interventions: Epidural, PRN Medication, Scheduled Medication, Topical Medication PQRS Narrative: Smoking Status Never smoker Home Medications: Ambulatory Orders Multivitamins, Thera [Multivitamin (formulary)] 1 tab PO DAILY@79906/29/14 Famotidine [Pepcid] 40 mg PO HS@199907/17/20 Atorvastatin [Lipitor] 20 mg PO HS@199905/29/22 Cholecalciferol [Vitamin D3 (25 Mcg = 1000 Iu)] 25 mcg PO BID@0800,169905/29/22 Pantoprazole [Protonix] 40 mg PO DAILY@79905/29/22 carBAMazepine 200 mg PO BID@0800,169905/29/22 Acetaminophen Tab [Tylenol] 325 mg PO Q6HR 04/15/25 Calcium Carbonate [Calcium] 600 mg PO BID@0800,169904/15/25 Cetirizine HCl [Zyrtec] 10 mg PO HS@199904/15/25 Fluticasone Nasal [place] [Flonase Nasal [place]] 2 spr EA NOSTRIL HS@199904/15/25 Melatonin 3 mg PO HS@199904/15/25 Metamucil 4 In 1 Fiber Powder 2 tbsp PO DAILY@1300 04/15/25 Metoprolol Tartrate [Lopressor] 25 mg PO DAILY@0804/15/25 Mirabegron [Myrbetriq] 25 mg PO DAILY@0804/15/25 Nystatin 100,000 Unit/gm Powd [Mycostatin Powder] 1 applic TOPICAL BID@0800,17004/15/25 Rivaroxaban [Xarelto] 20 mg PO HS@169904/15/25 Venlafaxine HCl [Effexor] 75 mg PO BID@0800,1700 04/15/25 clonazePAM [KlonoPIN] 0.5 mg PO BID@0800,1700 #6 tab 04/17/25 Gabapentin [Neurontin] 300 mg PO TID 05/01/25 HYDROcodone/APAP 5-325MG [[place] 5-325] 5 mg PO DAILY PRN 05/01/25 Lidocaine 4% Patch 1 each TD DAILY 05/01/25 diazePAM [Valium] 5 mg PO DAILY 1 Days #9 tab 05/23/25 Controlled Substance Measures - Controlled Substance Measures Is patient prescribed a controlled substance at discharge?: Yes When asked, does pt state using other controlled substances?: No If prescribed controlled substance>3 days was MAPS reviewed?: Prescribed <3 Days
== END ==
LOC: PNWHC3 12:34
PROVIDERS: ATTEND Specialist
DX: M70.72 Other bursitis of hip, left hip (principal); M16.12 Unilateral primary osteoarthritis, left hip; M46.1 Sacroiliitis, not elsewhere classified
CPT/HCPCS: 99211